=== PATIENT | male | born 1960 | race Caucasian/White ===

== ENCOUNTER 2020-04-09 14:34 | Outpatient (REF) | payer BC, SELFPAY | END 2020-04-09 14:35 | disposition home or self-care (01) | LOC: HO.MDS 14:34 | PROVIDERS: PCP Internal Medicine; Visit Provider Internal Medicine | DX: D50.9 Iron deficiency anemia, unspecified (principal) | CPT/HCPCS: 96365; J2916 ==

== ENCOUNTER 2020-04-19 12:27 | Outpatient (REF) | payer BC, SELFPAY | END 2020-04-19 12:28 | disposition home or self-care (01) | LOC: HO.MDS 12:27 | PROVIDERS: Visit Provider Internal Medicine | DX: D50.9 Iron deficiency anemia, unspecified (principal) | CPT/HCPCS: 96365; J1439 ==

== ENCOUNTER → 2020-07-02 15:20 | Outpatient (BNV) | payer BC, SELFPAY | PROVIDERS: PCP Internal Medicine; Visit Provider Internal Medicine | DX: D50.0 Iron deficiency anemia secondary to blood loss (chronic) (principal) | CPT/HCPCS: 99213; 99214 ==

== ENCOUNTER 2020-07-08 13:22 | Outpatient (REF) | payer BC, SELFPAY | END 2020-07-08 13:23 | disposition home or self-care (01) | LOC: HO.MDS 13:22 | PROVIDERS: Visit Provider Internal Medicine Medical Oncology | DX: D50.9 Iron deficiency anemia, unspecified (principal) | CPT/HCPCS: 96365; J1439 ==

== ENCOUNTER 2020-07-16 | Outpatient (REF) | payer BC, SELFPAY | END 2020-07-16 00:01 | disposition home or self-care (01) | LOC: HO.MDS | PROVIDERS: PCP Internal Medicine; Visit Provider Internal Medicine Medical Oncology | DX: D50.9 Iron deficiency anemia, unspecified (principal) | CPT/HCPCS: 96365; J1439 ==

== ENCOUNTER 2020-10-01 08:06 | Outpatient (REF) | payer BC, SELFPAY ==
--- NOTE | ~2020-10-01 | XR_ITS ---
EXAMINATION: XR KNEE, BILATERAL XR KNEE, RIGHT CLINICAL INFORMATION: Pain in the right knee COMPARISON: None TECHNIQUE: AP standing view of both knees. Lateral and sunrise views of the right knee. FINDINGS: Right knee: No fracture or subluxation. Mild medial compartment joint space narrowing. Enthesophyte formation of the patella. No significant joint effusion. Scattered vascular calcifications are present. Left knee: No fracture or subluxation. Mild medial compartment narrowing. XR/XR knee RT 2V IMPRESSION: Mild medial compartment narrowing of both knees.
--- NOTE | ~2020-10-01 | XR_ITS ---
EXAMINATION: XR KNEE, BILATERAL XR KNEE, RIGHT CLINICAL INFORMATION: Pain in the right knee COMPARISON: None TECHNIQUE: AP standing view of both knees. Lateral and sunrise views of the right knee. FINDINGS: Right knee: No fracture or subluxation. Mild medial compartment joint space narrowing. Enthesophyte formation of the patella. No significant joint effusion. Scattered vascular calcifications are present. Left knee: No fracture or subluxation. Mild medial compartment narrowing. XR/XR knee standing BI IMPRESSION: Mild medial compartment narrowing of both knees.
== END 2020-10-01 08:07 | disposition home or self-care (01) ==
LOC: HO.HOSX 08:06
PROVIDERS: PCP Internal Medicine; Visit Provider Physician Assistant
DX: M25.561 Pain in right knee (principal); M25.562 Pain in left knee; S80.01XA Contusion of right knee, initial encounter; W18.30XA Fall on same level, unspecified, initial encounter; Y93.9 Activity, unspecified; Y92.9 Unspecified place or not applicable; Y99.8 Other external cause status; D50.9 Iron deficiency anemia, unspecified; J44.9 Chronic obstructive pulmonary disease, unspecified; I10 Essential (primary) hypertension; K21.9 Gastro-esophageal reflux disease without esophagitis; Z87.891 Personal history of nicotine dependence; Z91.09 Other allergy status, other than to drugs and biological substances
CPT/HCPCS: 73560; 73565

== ENCOUNTER 2020-10-08 08:28 | Outpatient (REF) | payer BC, SELFPAY | END 2020-10-08 08:29 | disposition home or self-care (01) | LOC: HO.MDS 08:28 | PROVIDERS: PCP Internal Medicine; Visit Provider Internal Medicine Medical Oncology | DX: D50.9 Iron deficiency anemia, unspecified (principal) | CPT/HCPCS: 96365; J1439 ==

== ENCOUNTER 2020-10-15 14:16 | Outpatient (REF) | payer BC, SELFPAY | END 2020-10-15 14:17 | disposition home or self-care (01) | LOC: HO.MDS 14:16 | PROVIDERS: PCP Internal Medicine; Visit Provider Internal Medicine Medical Oncology | DX: D50.9 Iron deficiency anemia, unspecified (principal) | CPT/HCPCS: 96365; J1439 ==

== ENCOUNTER 2020-11-26 09:31 | Outpatient (REF) | payer BC, SELFPAY ==
--- NOTE | ~2020-11-26 | XR_ITS ---
EXAMINATION: XR FOOT, RIGHT CLINICAL INFORMATION: 5th metatarsal fracture COMPARISON: None TECHNIQUE: AP, lateral, and oblique views of the right foot. FINDINGS: The bones and soft tissues are normal. No fracture. Alignment is anatomic. Joint spaces are maintained. Small heel spur. XR/XR foot RT min 3V IMPRESSION: No fracture.
== END 2020-11-26 09:32 | disposition home or self-care (01) ==
LOC: HO.XRAY 09:31
PROVIDERS: PCP Internal Medicine; Visit Provider Physician Assistant
DX: S92.351A Displaced fracture of fifth metatarsal bone, right foot, initial encounter for closed fracture (principal); M79.671 Pain in right foot; S83.104A Unspecified dislocation of right knee, initial encounter; S83.281A Other tear of lateral meniscus, current injury, right knee, initial encounter
CPT/HCPCS: 73630

== ENCOUNTER 2020-12-02 08:39 | Outpatient (REF) | payer BC, SELFPAY ==
[2020-12-02 12:07] LABS: Erythrocyte Sedimentation Rate 3 MM/HR (0-15)
[2020-12-02 12:12] LABS: Uric Acid 6.2 mg/dL (3.4-7.0)
== END 2020-12-02 08:40 | disposition home or self-care (01) ==
LOC: HO.HMGCLDS 08:39
PROVIDERS: PCP Internal Medicine; Visit Provider Nurse Practitioner Family
DX: M79.671 Pain in right foot (principal); M25.561 Pain in right knee
CPT/HCPCS: 36415; 84550; 85652

== ENCOUNTER 2020-12-14 17:41 | Outpatient (REF) | payer BC, SELFPAY ==
--- NOTE | ~2020-12-14 | MR_ITS ---
EXAMINATION: MR KNEE WITHOUT CONTRAST, RIGHT CLINICAL INFORMATION: Right knee pain. COMPARISON: Radiographs of knees from 10/01/2020. TECHNIQUE: MRI of the knee without contrast was performed using routine sequences on a high-field scanner. FINDINGS: MENISCI: Medial Meniscus: Small horizontal tear of approximately 0.5 cm AP dimension at the inner third of the meniscus in region of junction of the posterior horn and meniscal body. Lateral Meniscus: Normal. No tear, discoid meniscus or parameniscal cyst. LIGAMENTS: Cruciate: Anterior and posterior cruciate ligaments are normal. Collateral: At the medial knee, the tibial collateral ligament is intact. At the lateral knee, the iliotibial band, fibular collateral ligament, biceps femoris tendon and popliteus tendon are intact. EXTENSOR MECHANISM: The distal quadriceps tendon is intact. The patellar tendon, patellar retinacula, and Hoffa's fat pad are unremarkable. ARTICULAR CARTILAGE/BONE: Patellofemoral Compartment: Patella is properly positioned within the trochlear groove. Minimal signal heterogeneity of superficial cartilage of the lateral patellar facet. Overall, articular cartilage of the patella and femoral trochlea is well preserved. Medial Compartment: No focal cartilage defects. A fracture line in trabecular bone in the weightbearing region of the femoral condyle measures approximately 1 cm AP dimension. Diffuse bone marrow edema is present within the medial femoral condyle. Lateral Compartment: Normal. JOINT FLUID AND BURSAE: Small joint effusion with trace amount of fluid in the semimembranosus-medial gastrocnemius bursa, and mild fluid distention of the popliteus tendon sheath. MR/MR knee RT wo con IMPRESSION: * There is a horizontal tear at the inner third of the posterior horn of the medial meniscus at its junction with the meniscal body. * Small stress fracture in the weightbearing area of the medial femoral condyle with diffuse bone marrow edema of the femoral condyle. * Small joint effusion.
== END 2020-12-14 17:42 | disposition home or self-care (01) ==
LOC: HO.MRI 17:41
PROVIDERS: Visit Provider Physician Assistant
DX: S83.104A Unspecified dislocation of right knee, initial encounter (principal); S83.281A Other tear of lateral meniscus, current injury, right knee, initial encounter
CPT/HCPCS: 73721

== ENCOUNTER → 2021-01-06 14:38 | Outpatient (BNVA) | payer BC, SELFPAY | PROVIDERS: PCP Internal Medicine; Visit Provider Physician Assistant ==

== ENCOUNTER 2021-01-08 12:49 | Inpatient (IN) | payer BC, SELFPAY ==
[2021-01-08] VITALS (13 sets, daily range): BP systolic 103–134; BP diastolic 50–76; PULSE 89–111; RESP 16–99; TEMP 36.8–38.5; O2SAT 90–100; BMI 34.4
--- NOTE | ~2021-01-08 | XR_ITS ---
EXAMINATION: XR CHEST CLINICAL INFORMATION: Cough COMPARISON: CT chest dated 07.21.2014 TECHNIQUE: Frontal view of the chest was obtained. FINDINGS: Emphysema. No parenchymal consolidation. No pleural effusion. No pneumothorax. Cardiomediastinal silhouette and pulmonary vascularity are within normal limits. No acute osseous abnormalities. XR/XR chest 1V IMPRESSION: No acute findings.
--- NOTE | ~2021-01-08 | CT_ITS ---
EXAMINATION: CT CHEST PE STUDY CLINICAL INFORMATION: Dyspnea. Elevated d-dimer. Rule out pulmonary embolism. COMPARISON: Chest x-ray dated 01/08/2021. CT scan of the chest dated 07/21/2014. TECHNIQUE: Prior to contrast administration, localization images were obtained. After the administration of 71 mL of intravenous Omnipaque 350, multidetector CT volume acquisition of the chest was performed. 3-D postprocessing was performed with multiplanar reconstructions and MIP images obtained at the acquisition workstation under concurrent physician supervision. This CT examination was performed using dose optimization techniques as appropriate, variously including the following: *Automated exposure control *Adjustment of mA and/or kV according to patient size (this includes techniques or standardized protocols for targeted exams where dose is matched to indication/reason for exam; i.e. extremities or head) *Use of iterative reconstruction technique DLP: 461 mGy-cm. FINDINGS: Pulmonary arteries: The bolus timing on this study was acceptable for visualization of the pulmonary arterial tree. There are no intraluminal pulmonary arterial filling defects present to suggest pulmonary embolism in the main pulmonary artery, right and left main pulmonary artery, lobar and segmental branches. Lungs: There is a trace right pleural effusion. No significant left-sided pleural effusion is seen. There is dense masslike consolidation in the posterior segment of the right upper lobe, extending to the pleural and fissural surfaces with slight thickening of the right major fissure, new compared to 2015, suspicious for a pneumonia. Dependent atelectasis is seen in both lower lobes. Central airways are patent. There is underlying centrilobular emphysema. Cardiovascular structures: Aorta and heart: The heart is normal in size. The aorta is normal. There is no pericardial effusion Lymphatic structures: Again seen is abnormal right hilar adenopathy, measuring up to 2.2 cm in short axis. Subcarinal adenopathy measuring up to 1.3 cm in short axis, right lower paratracheal adenopathy measuring up to 1.6 cm and several other smaller mediastinal and left hilar lymph nodes are noted, similar to the previous exam from 2014. No significant axillary adenopathy is noted. Upper abdomen: Limited evaluation of the upper abdominal viscera demonstrates no focal abnormality. Bones: Diffuse moderate vertebral spondylosis seen in the mid and lower thoracic spine. CT/CT angio chest PE protocol IMPRESSION: 1. No evidence of pulmonary embolism. 2. Interval development of extensive masslike consolidation in the right upper lobe with associated thickening of the airways and small right pleural effusion. Finding is most likely related to intercurrent rounded pneumonia. However, close clinical correlation is requested. If clinically, pneumonia is not a consideration, similar appearance may be seen with advanced lung cancer. Follow-up imaging post treatment is recommended for reassessment. 3. Abnormal mediastinal and right greater than left hilar adenopathy is seen, appearing chronic and similar to 07/21/2014. This is of uncertain etiology. Given the long-term persistence of findings, low-grade chronic processes, such as low-grade lymphoma, chronic inflammatory changes, Castleman's disease, chronic granulomatous infection can be considered in the differential. VTE: Negative
--- NOTE | 2021-01-08 12:57 | ECG_ITS ---
Test Reason : SHORTNESS OF BREATH Blood Pressure : / mmHG Vent. Rate : 105 BPM Atrial Rate : 105 BPM P-R Int : 158 ms QRS Dur : 110 ms QT Int : 348 ms P-R-T Axes : 055 014 056 degrees QTc Int : 459 ms Sinus tachycardia Incomplete right bundle branch block Borderline ECG When compared with ECG of 21-JUL-2014 04:08, No significant change was found Referred By: Aishwarya Cristina Electronically Signed By:Amado Naidu
--- NOTE | 2021-01-08 13:06 | ED_ITS ---
HPI - SOB/Dyspnea General Chief Complaint: Dyspnea Stated Complaint: COPD EXACERBATION Time Seen by Provider: 01/08/21 12:57 Source: patient and EMS Mode of arrival: EMS Limitations: no limitations History of Present Illness MD elicited complaint: shortness of breath and cough Pertinent past history: COPD and other (anemia missed his recent Fe infusion) Onset (ago): day(s) (last night) Timing: improved (after neb with EMS sats in the high 80s on arrival) Severity: moderate Exacerbating factors: lying flat and exertion Relieving factors: oxygen, rest and bronchodilators Known history of: COPD Treatment prior to arrival: bronchodilator Related Data Home Medications Medication Instructions Recorded Confirmed ascorbic acid (vitamin C) [Vitamin 500 mg PO DAILY 07/02/20 01/08/21 C] ferrous sulfate [Iron (ferrous 325 mg PO BID 07/02/20 01/08/21 sulfate)] Previous Rx's Medication Instructions Recorded fluticasone 250 mcg-salmeterol 50 1 ea INHALATION BID #180 cap 06/07/20 mcg/dose blistr powdr for inhalation tiotropium bromide 2.5 2 puff PO DAILY #12 ml 14/20 mcg/actuation mist for inhalation omeprazole 20 mg capsule,delayed 20 mg PO DAILY #90 cap 11/08/20 release indomethacin 50 mg capsule 50 mg PO BID PRN 30 Days #60 cap 12/31/20 losartan 50 mg tablet 50 mg PO DAILY 90 Days #90 tab 12/31/20 naproxen 500 mg tablet 500 mg PO BID 30 Days #60 tab 01/06/21 Allergies Allergy/AdvReac Type Severity Reaction Status Date / Time adhesive tape Allergy Unknown RASH Verified 01/08/21 13:00 Review of Systems Review of Systems: Constitutional : No Fever, No Chills ENT/Mouth : No sore throat, No Rhinorrhea, No Swallowing Difficulty Eyes: No Eye Pain, No Swelling, No Redness Cardiovascular : No Chest Pain, positive SOB, No Orthopnea, no Edema, pos palpitations Respiratory : pos Cough, No Sputum, No Wheezing, positive dyspnea Gastrointestinal : No Nausea, No Vomiting, No Diarrhea, No abdominal Pain, No Hematochezia, No Melena Genitourinary : No Dysuria, No Urinary Frequency, No Hematuria Musculoskeletal : No joint pain, No Myalgias Skin : No Skin Lesions, No rash Neuro : pos Weakness, No Numbness, No Dizziness, No Headache Psych : No Anxiety/Panic, No Depression Heme/Lymph: No Bruising, No Lymphadenopathy Endocrine : No Polyuria, No Polydipsia All other systems reviewed and are negative [facility] Past Medical History Attestation statement: The following information was validated with the patient. Medical History COPD (chronic obstructive pulmonary disease) GERD (gastroesophageal reflux disease) HTN (hypertension) Iron deficiency anemia Surgical History H/O umbilical hernia repair Family History Family History Father Liver cancer Diabetes mellitus Mother Emphysema, unspecified CVD (cardiovascular disease) Maternal Grandmother No problems noted. Maternal Grandfather No problems noted. Paternal Grandfather No problems noted. Paternal Grandmother No problems noted. Sister No problems noted. 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 Oriented X3. Mild acute distress. Eyes: Pupils equal, round and reactive to light. ENT: Pharynx normal. Neck: Normal inspection. Neck supple. CVS: Normal heart rate and rhythm. Pulses normal. Respiratory: No respiratory distress. Breath sounds diminished throughout Abdomen: Soft and nontender. Skin: Skin warm and dry. pale skin color. Extremities: trace pitting bilateral lower extremity edema. No calf ttp Neuro: Oriented X 3. No motor deficit. No sensory deficit. 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 Lab Data Result diagrams: 01/08/21 13:13 01/08/21 13:13 Labs: Lab Results 01/08/21 01/08/21 01/08/21 Range/Units 13:13 13:13 13:13 WBC 9.4 (4.8-10.8) X10*3/uL RBC 2.45 L D (4.60-5.80) X10*6/uL Hgb 5.9 L* D (14.0-18.0) g/dl Hct 20.1 L* D (42-52) % MCV 82.0 (80-98) fL MCH 24.1 L (27.0-33.0) pg MCHC 29.4 L (31.0-36.0) g/dl RDW 16.1 H (11.0-16.0) % Plt Count 260 (160-400) X10*3/uL MPV 9.3 L (9.4-12.4) fL Immature Gran % (Auto) 0.4 (0.0-0.4) % Neut % (Auto) 83.3 H (45-73) % Lymph % (Auto) 7.5 L (20-40) % [place] % (Auto) 8.4 (2-11) % Eos % (Auto) 0.2 (0-4) % Baso % (Auto) 0.2 (0-2) % Lymph # (Auto) 0.7 L (1.2-4.9) X10*3/uL [place] # (Auto) 0.8 (0.1-1.2) X10*3/uL Eos # (Auto) 0.0 (0.0-0.4) X10*3/uL Baso # (Auto) 0.0 (0.0-0.2) X10*3/uL Abs Immat Gran (auto) 0.04 H (0.00-0.03) X10*3/uL Absolute Neuts (auto) 7.9 (2.0-8.3) X10*3/uL Absolute Nucleated RBC 0.000 (0.0-0.012) X10*3/uL Nucleated RBC % (auto) 0.0 (0.0-0.2) /100WBC D-Dimer 713 NG/ML Sodium 142 (135-145) mmol/L Potassium 4.6 (3.3-5.1) mmol/L Chloride 109 H (96-108) mmol/L Carbon Dioxide 24 (22-29) mmol/L Anion Gap 14 (12-20) BUN 17 H (9-16) mg/dL Creatinine 0.92 (0.5-1.4) mg/dL Estim Creat Clear Calc 105.9 Estimated GFR > 60 Random Glucose 109 (60-115) mg/dL Lactic Acid (0.5-2.0) mmol/L Calcium 8.0 L (8.4-10.2) mg/dL Magnesium 2.1 (1.6-2.6) mg/dL Total Bilirubin 0.6 (0.0-1.0) mg/dL Direct Bilirubin 0.3 (0.0-0.5) mg/dL AST 22 (5-37) U/L ALT 31 (0-40) U/L Alkaline Phosphatase 87 (39-117) U/L Troponin I High Sens (<3.5-35.0) ng/L B-Natriuretic Peptide (<100) pg/mL Total Protein 5.4 L (6.5-8.0) g/dL Albumin 3.4 L D (3.5-5.0) g/dL COVID-19 (JUDD) (Negative) COVID-19 Clin Com Blood Type Antibody Screen Crossmatch 01/08/21 01/08/21 01/08/21 Range/Units 13:13 13:13 13:40 WBC (4.8-10.8) X10*3/uL RBC (4.60-5.80) X10*6/uL Hgb (14.0-18.0) g/dl Hct (42-52) % MCV (80-98) fL MCH (27.0-33.0) pg MCHC (31.0-36.0) g/dl RDW (11.0-16.0) % Plt Count (160-400) X10*3/uL MPV (9.4-12.4) fL Immature Gran % (Auto) (0.0-0.4) % Neut % (Auto) (45-73) % Lymph % (Auto) (20-40) % [place] % (Auto) (2-11) % Eos % (Auto) (0-4) % Baso % (Auto) (0-2) % Lymph # (Auto) (1.2-4.9) X10*3/uL [place] # (Auto) (0.1-1.2) X10*3/uL Eos # (Auto) (0.0-0.4) X10*3/uL Baso # (Auto) (0.0-0.2) X10*3/uL Abs Immat Gran (auto) (0.00-0.03) X10*3/uL Absolute Neuts (auto) (2.0-8.3) X10*3/uL Absolute Nucleated RBC (0.0-0.012) X10*3/uL Nucleated RBC % (auto) (0.0-0.2) /100WBC D-Dimer NG/ML Sodium (135-145) mmol/L Potassium (3.3-5.1) mmol/L Chloride (96-108) mmol/L Carbon Dioxide (22-29) mmol/L Anion Gap (12-20) BUN (9-16) mg/dL Creatinine (0.5-1.4) mg/dL Estim Creat Clear Calc Estimated GFR Random Glucose (60-115) mg/dL Lactic Acid (0.5-2.0) mmol/L Calcium (8.4-10.2) mg/dL Magnesium (1.6-2.6) mg/dL Total Bilirubin (0.0-1.0) mg/dL Direct Bilirubin (0.0-0.5) mg/dL AST (5-37) U/L ALT (0-40) U/L Alkaline Phosphatase (39-117) U/L Troponin I High Sens 6.9 (<3.5-35.0) ng/L B-Natriuretic Peptide 128 H (<100) pg/mL Total Protein (6.5-8.0) g/dL Albumin (3.5-5.0) g/dL COVID-19 (JUDD) Negative (Negative) COVID-19 Clin Com See Note Blood Type O Positive Antibody Screen NEGATIVE Crossmatch See Detail 01/08/21 Range/Units 13:40 WBC (4.8-10.8) X10*3/uL RBC (4.60-5.80) X10*6/uL Hgb (14.0-18.0) g/dl Hct (42-52) % MCV (80-98) fL MCH (27.0-33.0) pg MCHC (31.0-36.0) g/dl RDW (11.0-16.0) % Plt Count (160-400) X10*3/uL MPV (9.4-12.4) fL Immature Gran % (Auto) (0.0-0.4) % Neut % (Auto) (45-73) % Lymph % (Auto) (20-40) % [place] % (Auto) (2-11) % Eos % (Auto) (0-4) % Baso % (Auto) (0-2) % Lymph # (Auto) (1.2-4.9) X10*3/uL [place] # (Auto) (0.1-1.2) X10*3/uL Eos # (Auto) (0.0-0.4) X10*3/uL Baso # (Auto) (0.0-0.2) X10*3/uL Abs Immat Gran (auto) (0.00-0.03) X10*3/uL Absolute Neuts (auto) (2.0-8.3) X10*3/uL Absolute Nucleated RBC (0.0-0.012) X10*3/uL Nucleated RBC % (auto) (0.0-0.2) /100WBC D-Dimer NG/ML Sodium (135-145) mmol/L Potassium (3.3-5.1) mmol/L Chloride (96-108) mmol/L Carbon Dioxide (22-29) mmol/L Anion Gap (12-20) BUN (9-16) mg/dL Creatinine (0.5-1.4) mg/dL Estim Creat Clear Calc Estimated GFR Random Glucose (60-115) mg/dL Lactic Acid 1.3 (0.5-2.0) mmol/L Calcium (8.4-10.2) mg/dL Magnesium (1.6-2.6) mg/dL Total Bilirubin (0.0-1.0) mg/dL Direct Bilirubin (0.0-0.5) mg/dL AST (5-37) U/L ALT (0-40) U/L Alkaline Phosphatase (39-117) U/L Troponin I High Sens (<3.5-35.0) ng/L B-Natriuretic Peptide (<100) pg/mL Total Protein (6.5-8.0) g/dL Albumin (3.5-5.0) g/dL COVID-19 (JUDD) (Negative) COVID-19 Clin Com Blood Type Antibody Screen Crossmatch ECG Data Attestation: I personally reviewed and interpreted this ECG as follows: ECG interpretation date: 01/08/21 ECG interpretation time: 13:58 Interpretation: Rate: 105 Rhythm: sinus tachycardia [place]: normal Normal P waves. Normal KRISTIAN. incomplete RBBB ST T wave : nonspecific, no MATEO qTC: normal prior studies: no acute ischemia The study has been interpreted contemporaneously by me. . Critical Care Time Critical Care Time Critical Care Time: Yes Total Critical Care Time: 60 Attestation: review or records, transfusion of blood, COPD treatment I attest to this time spent taking care of the patient Discharge Plan Discharge Clinical Impression: COPD (chronic obstructive pulmonary disease) Qualifiers: COPD type: COPD with acute exacerbation Qualified Code(s): J44.1 - Chronic obstructive pulmonary disease with (acute) exacerbation Anemia Qualifiers: Anemia type: iron deficiency Iron deficiency anemia type: chronic blood loss Qualified Code(s): D50.0 - Iron deficiency anemia secondary to blood loss (chronic) Fever Qualifiers: Fever type: unspecified Qualified Code(s): R50.9 - Fever, unspecified Pneumonia Qualifiers: Pneumonia type: due to unspecified organism Laterality: right Lung location: upper lobe of lung Qualified Code(s): J18.9 - Pneumonia, unspecified organism Patient Disposition: Admitted As Inpatient
[2021-01-08] MEDS: Albuterol Sulfate (0.083%) 2.5 MG/3 ML VIAL.NEB INHALE (13:14)
[2021-01-08 13:19] LABS: Basophils Percent Auto 0.2 % (0-2); Eosinophils Percent Auto 0.2 % (0-4); Imm Gran Abs Auto 0.04 X10*3/uL (0.00-0.03); Imm Gran Pct Auto 0.4 % (0.0-0.4); Lymphocytes Absolute Auto 0.7 X10*3/uL (1.2-4.9); Lymphocytes Percent Auto 7.5 % (20-40); MANUAL DIFF FLAG NO; Mean Corpuscular HGB Conc 29.4 g/dl (31.0-36.0); Mean Corpuscular Hemoglobin 24.1 pg (27.0-33.0); Mean Platelet Volume 9.3 fL (9.4-12.4); Monocytes Absolute Auto 0.8 X10*3/uL (0.1-1.2); Monocytes Percent Auto 8.4 % (2-11); Neutrophils Absolute Auto 7.9 X10*3/uL (2.0-8.3); Neutrophils Percent Auto 83.3 % (45-73); Platelet Count 260 X10*3/uL (160-400); Red Blood Count 2.45 X10*6/uL (4.60-5.80); Red Cell Distribution Width 16.1 % (11.0-16.0); White Blood Count 9.4 X10*3/uL (4.8-10.8)
[2021-01-08 13:23] LABS: Hematocrit 20.1 % (42-52); Hemoglobin 5.9 g/dl (14.0-18.0)
[2021-01-08 13:32] LABS: D Dimer 713 NG/ML
[2021-01-08] MEDS: Famotidine/PF 20 MG/2 ML VIAL IVPUSH (13:34)
[2021-01-08] MEDS: Acetaminophen 325 MG TABLET 650 MG PO (13:34)
[2021-01-08 13:36] LABS: COVID-19 Test Negative (Negative)
[2021-01-08 13:49] LABS: B Type Natriuretic Peptide 128 pg/mL (<100); Troponin-I High Sensitivity 6.9 ng/L (<3.5-35.0)
[2021-01-08 14:05] LABS: Alanine Aminotransferase 31 U/L (0-40); Albumin Level 3.4 g/dL (3.5-5.0); Alkaline Phosphatase 87 U/L (39-117); Anion Gap 14 (12-20); Aspartate Amino Transferase 22 U/L (5-37); Bilirubin Direct 0.3 mg/dL (0.0-0.5); Bilirubin Total 0.6 mg/dL (0.0-1.0); Blood Urea Nitrogen 17 mg/dL (9-16); Carbon Dioxide 24 mmol/L (22-29); Chloride 109 mmol/L (96-108); Creatinine Clr Calc Pharmacy 105.9; Estimated Glomerular Filt Rate > 60; Glucose Random 109 mg/dL (60-115); Magnesium 2.1 mg/dL (1.6-2.6); Potassium 4.6 mmol/L (3.3-5.1); Sodium 142 mmol/L (135-145); Total Protein 5.4 g/dL (6.5-8.0)
[2021-01-08] MEDS: cefTRIAXone sodium 1 GM in 0.9 % Sodium Chloride 50 ML IV (14:08)
[2021-01-08 14:10] LABS: Lactic Acid 1.3 mmol/L (0.5-2.0)
[2021-01-08] MEDS: Acetaminophen 325 MG TABLET PO (14:49)
[2021-01-08] MEDS: Doxycycline Hyclate 100 MG in 0.9 % Sodium Chloride 250 ML 166.67 MG IV (15:44)
--- NOTE | 2021-01-08 15:53 | PC.NURSE ---
hospitalist to bedside for eval
--- NOTE | 2021-01-08 16:05 | P.HPHOSP_ITS ---
History of Present Illness Date of Service: 01/08/21 Chief Complaint: Shortness of breath, fever, cough A 60 years old male with PMH of AVM small-bowel, COPD, HTN, GERD among others who presents to the hospital with shortness of breath, cough and weakness for the last day. The patient reported that he was treated recently for gout attack and knee pain with steroids and indomethacin. For the last 3 days he noticed increase shortness of breath upon ambulation with increased episodes of coughing associated with chills and feeling fever. He follows with Dr. Gonzalez as outpatient and received iron transfusion every 3 months to sustain his hemoglobin level between 9-10. With his presentation today he is denying any chest pain, palpitation, nausea or vomiting, abdominal pain, urinary changes or skin abnormality. In the emergency was found to febrile with significant drop of hemoglobin to 5.[address] scan suggestive of pneumonia. Admitted further evaluation and treatment. Review of Systems Review of Systems: Report fever, chills or weakness No chest pain, feeling palpitation Having shortness of breath and bouts of coughing No abdominal pain, nausea or vomiting No urinary symptoms No any rash or wounds PMFSH Medical History COPD (chronic obstructive pulmonary disease) GERD (gastroesophageal reflux disease) HTN (hypertension) Iron deficiency anemia Family History Father Liver cancer Diabetes mellitus Mother Emphysema, unspecified CVD (cardiovascular disease) Maternal Grandmother No problems noted. Maternal Grandfather No problems noted. Paternal Grandfather No problems noted. Paternal Grandmother No problems noted. Sister No problems noted. 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 Meds Allergies Allergy/AdvReac Type Severity Reaction Status Date / Time adhesive tape Allergy Unknown RASH Verified 01/08/21 13:00 Active Medications: Current Medications Generic Name Dose Route Start Last Admin Trade Name Freq PRN Reason Stop Dose Admin Acetaminophen 650 mg 01/08/21 15:58 Acetaminophen 325 Mg Tablet PO Q6H PRN Pain, Mild (Pain Scale 1-3) Al Hydroxide/Mg Hydroxide 30 ml 01/08/21 15:58 Magnesium Hydrox/Alum Hydrox 30 Ml Oral.Susp PO Q4H PRN Heartburn/Nausea Albuterol Sulfate 2.5 mg 01/08/21 15:58 Albuterol Sulfate (0.083%) 2.5 Mg/3 Ml Vial.Neb INHALE Q3H PRN Shortness of Breath/Wheezing Albuterol/Ipratropium 3 ml 01/08/21 20:00 Albuterol/Iprat 2.5/0.5mg 3 Ml Ampul.Neb INHALE RQ6H WHILE AWAKE [facility] Ferrous Sulfate 324 mg 01/08/21 17:00 Ferrous Sulfate 324 Mg Tablet. PO BIDWM [facility] Doxycycline Hyclate 100 mg/ 250 mls @ 166.67 mls/hr 01/08/21 14:38 01/08/21 15:44 Sodium Chloride IV 01/08/21 16:07 166.67 mls/hr ONCE ONE Administration Ceftriaxone Sodium 1 gm/ 50 mls @ 100 mls/hr 01/09/21 13:00 Sodium Chloride IV Q24H [facility] Azithromycin 500 mg/ Sodium 250 mls @ 125 mls/hr 01/08/21 16:00 Chloride IV Q24H [facility] Losartan Potassium 25 mg 01/09/21 09:00 Losartan Potassium 25 Mg Tablet PO DAILY [facility] Protocol Omeprazole 20 mg 01/08/21 21:00 Omeprazole 20 Mg Capsule. PO BID [facility] Ondansetron HCl 4 mg 01/08/21 15:58 Ondansetron Hcl 4 Mg/2 Ml Vial IVPUSH Q8H PRN Nausea and Vomiting Pharmacy Consult 1 each 01/08/21 15:12 Consult Rx Perform Med Rec MISCELLANE ONCE PRN Consult order Sodium Chloride 3 ml 01/08/21 16:00 0.9 % Sodium Chloride Flush 3 Ml Syringe IVFLUSH QSHIFT [facility] Home Medications Medication Instructions Recorded Confirmed Last Taken Type ascorbic acid (vitamin C) [Vitamin 500 mg PO DAILY 07/02/20 01/08/21 Unknown History C] ferrous sulfate [Iron (ferrous 325 mg PO BID 07/02/20 01/08/21 Unknown History sulfate)] Physical Exam Vital Signs and Narrative: Vital Signs: Last Vital Signs Temp 100.7 F H 01/08/21 15:38 Pulse 96 01/08/21 15:38 Resp 20 01/08/21 15:38 BP 113/55 L 01/08/21 14:55 Pulse Ox 98 01/08/21 15:38 Body Mass Index 34.4 Const: Other: Constitutional : Alert, oriented, in mild respiratory distress Neck : Normal inspection, Supple Cardiovascular : RRR, S1 S2, no lower extremity edema Respiratory : Decrease bilateral air entry mainly at the right lower quadrant with basal crackles and expiratory wheezes bilaterally Gastrointestinal: soft, lax, Normal bowel sounds, Non tender Skin : Warm/Dry, No rash Neurological : Alert & oriented x3, No focal deficit Results Labs CBC and Chem 7: 01/08/21 13:13 01/08/21 13:13 Labs: Laboratory Results - last 24 hr 01/08/21 01/08/21 01/08/21 13:13 13:13 13:13 MCV 82.0 MCH 24.1 L MCHC 29.4 L RDW 16.1 H Plt Count 260 MPV 9.3 L Immature Gran % (Auto) 0.4 Neut % (Auto) 83.3 H Lymph % (Auto) 7.5 L [place] % (Auto) 8.4 Eos % (Auto) 0.2 Baso % (Auto) 0.2 Lymph # (Auto) 0.7 L [place] # (Auto) 0.8 Eos # (Auto) 0.0 Baso # (Auto) 0.0 Abs Immat Gran (auto) 0.04 H Absolute Neuts (auto) 7.9 Absolute Nucleated RBC 0.000 Nucleated RBC % (auto) 0.0 D-Dimer 713 Anion Gap 14 Estim Creat Clear Calc 105.9 Estimated GFR > 60 Random Glucose 109 Lactic Acid Calcium 8.0 L Magnesium 2.1 Total Bilirubin 0.6 Direct Bilirubin 0.3 AST 22 ALT 31 Alkaline Phosphatase 87 Troponin I High Sens B-Natriuretic Peptide Total Protein 5.4 L Albumin 3.4 L D COVID-19 (JUDD) COVID-19 Clin Com Blood Type Antibody Screen Crossmatch 01/08/21 01/08/21 01/08/21 13:13 13:13 13:40 MCV MCH MCHC RDW Plt Count MPV Immature Gran % (Auto) Neut % (Auto) Lymph % (Auto) [place] % (Auto) Eos % (Auto) Baso % (Auto) Lymph # (Auto) [place] # (Auto) Eos # (Auto) Baso # (Auto) Abs Immat Gran (auto) Absolute Neuts (auto) Absolute Nucleated RBC Nucleated RBC % (auto) D-Dimer Anion Gap Estim Creat Clear Calc Estimated GFR Random Glucose Lactic Acid Calcium Magnesium Total Bilirubin Direct Bilirubin AST ALT Alkaline Phosphatase Troponin I High Sens 6.9 B-Natriuretic Peptide 128 H Total Protein Albumin COVID-19 (JUDD) Negative COVID-19 Clin Com See Note Blood Type O Positive Antibody Screen NEGATIVE Crossmatch See Detail 01/08/21 13:40 MCV MCH MCHC RDW Plt Count MPV Immature Gran % (Auto) Neut % (Auto) Lymph % (Auto) [place] % (Auto) Eos % (Auto) Baso % (Auto) Lymph # (Auto) [place] # (Auto) Eos # (Auto) Baso # (Auto) Abs Immat Gran (auto) Absolute Neuts (auto) Absolute Nucleated RBC Nucleated RBC % (auto) D-Dimer Anion Gap Estim Creat Clear Calc Estimated GFR Random Glucose Lactic Acid 1.3 Calcium Magnesium Total Bilirubin Direct Bilirubin AST ALT Alkaline Phosphatase Troponin I High Sens B-Natriuretic Peptide Total Protein Albumin COVID-19 (JUDD) COVID-19 Clin Com Blood Type Antibody Screen Crossmatch Imaging Radiologist's Impressions: Impressions Chest X-Ray 01/08/21 12:58 IMPRESSION: No acute findings. Assessment and Plan (1) Sepsis: Status: Acute (2) Fever: Qualifiers: Fever type: unspecified Qualified Code(s): R50.9 - Fever, unspecified Status: Acute (3) Pneumonia: Qualifiers: Laterality: right Lung location: upper lobe of lung Pneumonia type: due to unspecified organism Qualified Code(s): J18.9 - Pneumonia, unspecified organism Status: Acute (4) COPD (chronic obstructive pulmonary disease) with acute bronchitis: Status: Acute (5) Symptomatic anemia: Status: Acute (6) Acute on chronic blood loss anemia: Status: Acute A 60 years old male with PMH of AVM small-bowel, COPD, HTN, GERD among others who presents to the hospital with shortness of breath, cough and weakness for the 3 days. Sepsis Secondary to pneumonia CTA showing consolidation Sepsis focused exam done Lactic acid negative Blood culture sent Start azithromycin and ceftriaxone Wean oxygen down as tolerated Symptomatic anemia Secondary to acute on chronic blood-loss anemia Hemoglobin 5.9 baseline between 9-10 From chronic AVM blood loss Continue iron supplement Transfused 2 units blood To get GI evaluation COPD exacerbation Received steroids, will hold on more with the worsening bleeding Continue DuoNeb nebulizer Cough medicine DVT PPX SCDs Quality Stroke Does the patient have a stroke diagnosis?: No VTE Prior VTE?: No VTE Risk Level:: Medical - moderate - high VTE Device Contraindication: N/A - Device Ordered VTE Drug Contraindication: Treatment Not Indicated
[2021-01-08] MEDS: iohexoL 350 MG/ML 100 ML INFUS..BTL IV (16:14)
--- NOTE | 2021-01-08 17:06 | PC.NURSE ---
Pt's second unit of blood hung and witnessed by Melissa BAIN. Pt denies SOB, itching, back pain at this this time. VS as charted, LS clear/dim at bases bilaterally. NAD. Denies pain at this time.
[2021-01-08] MEDS: Omeprazole 20 MG CAPSULE.DR PO (18:45)
[2021-01-08] MEDS: Pantoprazole Sodium 40 MG/10 ML VIAL IVPUSH (18:45)
[2021-01-08] MEDS: Azithromycin 500 MG in 0.9 % Sodium Chloride 250 ML 125 MG IV (18:45)
[2021-01-08] MEDS: Ferrous Sulfate 324 MG TABLET.DR PO (18:45)
[2021-01-08] MEDS: 0.9 % Sodium Chloride Flush 3 ML SYRINGE IVFLUSH (18:54)
[2021-01-08] MEDS: Albuterol/Iprat 2.5/0.5MG 3 ML AMPUL.NEB INHALE (20:11)
[2021-01-09] VITALS (14 sets, daily range): BP systolic 103–134; BP diastolic 56–71; PULSE 82–110; RESP 16–20; TEMP 36.6–38.8; O2SAT 92–97
[2021-01-09] MEDS: Acetaminophen 325 MG TABLET 650 MG PO ×2 (03:57→13:47)
[2021-01-09 05:21] LABS: Hematocrit 22.2 % (42-52); Mean Corpuscular HGB Conc 30.6 g/dl (31.0-36.0); Mean Corpuscular Hemoglobin 25.5 pg (27.0-33.0); Mean Corpuscular Volume 83.1 fL (80-98); Mean Platelet Volume 10.2 fL (9.4-12.4); NRBC Pct Auto 0.2 /100WBC (0.0-0.2); Platelet Count 258 X10*3/uL (160-400); Red Blood Count 2.67 X10*6/uL (4.60-5.80); Red Cell Distribution Width 16.7 % (11.0-16.0); White Blood Count 8.4 X10*3/uL (4.8-10.8)
[2021-01-09 05:41] LABS: Hemoglobin 6.8 g/dl (14.0-18.0)
--- NOTE | 2021-01-09 05:41 | PM.EVENT ---
Event Note Date of Service: 01/09/21 Event Note: Hgb <7, no actiove or overt bleed will transfuse 1 unit
[2021-01-09 05:52] LABS: Iron 8 mcg/dL (45-160); Percent Iron Saturation 3 % (15-50); Total Iron Binding Capacity 255 mcg/dL (228-428); Unsaturated Iron Binding 247 ug/dL
[2021-01-09 05:56] LABS: Anion Gap 13 (12-20); Blood Urea Nitrogen 15 mg/dL (9-16); Calcium 7.4 mg/dL (8.4-10.2); Carbon Dioxide 21 mmol/L (22-29); Chloride 111 mmol/L (96-108); Creatinine Clr Calc Pharmacy 117.4; Estimated Glomerular Filt Rate > 60; Glucose Random 107 mg/dL (60-115); Sodium 141 mmol/L (135-145)
[2021-01-09] MEDS: Omeprazole 20 MG CAPSULE.DR PO ×2 (06:01→16:31)
[2021-01-09] MEDS: Albuterol/Iprat 2.5/0.5MG 3 ML AMPUL.NEB INHALE ×3 (07:41→19:23)
[2021-01-09] MEDS: Losartan Potassium 25 MG TABLET PO (08:28)
[2021-01-09] MEDS: 0.9 % Sodium Chloride Flush 3 ML SYRINGE IVFLUSH ×2 (08:28→16:18)
[2021-01-09] MEDS: Ferrous Sulfate 324 MG TABLET.DR PO ×2 (08:28→16:31)
--- NOTE | 2021-01-09 10:30 | PC.NURSE ---
pt has gotten thrid unit of blood with no transfusion reaction symptoms. He is awake, oriented and resting quietly in recliner. Pt states he did not sleep well last night.
--- NOTE | 2021-01-09 13:09 | P.PNIM_ITS ---
Subjective Subjective Date of Service: 01/09/21 Interval History: The patient was seen and evaluated this morning Laying in bed, feels comfortable overall Hemoglobin remains low at 6.8 today, to transfuse more Blood No bloody bowel motions Denies any fever, chills or shortness of breath No reported other overnight events. Systemic review: No fever but still reporting chills and mild weakness No chest pain, palpitation No shortness of breath or coughing No abdominal pain, nausea or vomiting No urinary symptoms No any rash or wounds Physical Exam Vital Signs: Vital Signs: Last Vital Signs Temp 99.4 F 01/09/21 11:05 Pulse 85 01/09/21 11:05 Resp 18 01/09/21 11:05 BP 114/65 01/09/21 11:05 Pulse Ox 94 01/09/21 11:05 Body Mass Index 34.4 Const: Other: Constitutional : Alert, oriented, in mild respiratory distress Neck : Normal inspection, Supple Cardiovascular : RRR, S1 S2, no lower extremity edema Respiratory : Decrease bilateral air entry mainly at the right lower quadrant with basal crackles and expiratory wheezes bilaterally Gastrointestinal: soft, lax, Normal bowel sounds, Non tender Skin : Warm/Dry, No rash Neurological : Alert & oriented x3, No focal deficit Objective Data Current Medications Generic Name Dose Route Start Last Admin Trade Name Freq PRN Reason Stop Dose Admin Acetaminophen 650 mg 01/08/21 15:58 01/09/21 03:57 Acetaminophen 325 Mg Tablet PO 650 mg Q6H PRN Administration Pain, Mild (Pain Scale 1-3) Al Hydroxide/Mg Hydroxide 30 ml 01/08/21 15:58 Magnesium Hydrox/Alum Hydrox 30 Ml Oral.Susp PO Q4H PRN Heartburn/Nausea Albuterol Sulfate 2.5 mg 01/08/21 15:58 Albuterol Sulfate (0.083%) 2.5 Mg/3 Ml Vial.Neb INHALE Q3H PRN Shortness of Breath/Wheezing Albuterol/Ipratropium 3 ml 01/08/21 20:00 01/09/21 07:41 Albuterol/Iprat 2.5/0.5mg 3 Ml Ampul.Neb INHALE 3 ml RQ6H WHILE AWAKE ELKIN Administration Ferrous Sulfate 324 mg 01/08/21 17:00 01/09/21 08:28 Ferrous Sulfate 324 Mg Tablet. PO 324 mg BIDWM ELKIN Administration Ceftriaxone Sodium 1 gm/ 50 mls @ 100 mls/hr 01/09/21 14:00 Sodium Chloride IV Q24H ELKIN Azithromycin 500 mg/ Sodium 250 mls @ 125 mls/hr 01/08/21 18:00 01/08/21 21:12 Chloride IV Infused Q24H ELKIN Infusion Losartan Potassium 25 mg 01/09/21 09:00 01/09/21 08:28 Losartan Potassium 25 Mg Tablet PO 25 mg DAILY ELKIN Administration Protocol Omeprazole 20 mg 01/08/21 16:30 01/09/21 06:01 Omeprazole 20 Mg Capsule. PO 20 mg BID@0630,1630 [facility] Administration Ondansetron HCl 4 mg 01/08/21 15:58 Ondansetron Hcl 4 Mg/2 Ml Vial IVPUSH Q8H PRN Nausea and Vomiting Pharmacy Consult 1 each 01/08/21 15:12 Consult Rx Perform Med Rec MISCELLANE ONCE PRN Consult order Sodium Chloride 3 ml 01/08/21 16:00 01/09/21 08:28 0.9 % Sodium Chloride Flush 3 Ml Syringe IVFLUSH 3 ml QSHIFT [facility] Administration Labs CBC & Chem 7: 01/09/21 03:56 01/09/21 03:56 Labs: Laboratory Results - last 24 hr 01/08/21 01/08/21 01/08/21 13:13 13:13 13:13 WBC 9.4 RBC 2.45 L D Hgb 5.9 L* D Hct 20.1 L* D MCV 82.0 MCH 24.1 L MCHC 29.4 L RDW 16.1 H Plt Count 260 MPV 9.3 L Immature Gran % (Auto) 0.4 Neut % (Auto) 83.3 H Lymph % (Auto) 7.5 L Eagle % (Auto) 8.4 Eos % (Auto) 0.2 Baso % (Auto) 0.2 Lymph # (Auto) 0.7 L Eagle # (Auto) 0.8 Eos # (Auto) 0.0 Baso # (Auto) 0.0 Abs Immat Gran (auto) 0.04 H Absolute Neuts (auto) 7.9 Absolute Nucleated RBC 0.000 Nucleated RBC % (auto) 0.0 D-Dimer 713 Sodium 142 Potassium 4.6 Chloride 109 H Carbon Dioxide 24 Anion Gap 14 BUN 17 H Creatinine 0.92 Estim Creat Clear Calc 105.9 Estimated GFR > 60 Random Glucose 109 Lactic Acid Calcium 8.0 L Magnesium 2.1 Iron TIBC % Saturation Unsat Iron Binding Total Bilirubin 0.6 Direct Bilirubin 0.3 AST 22 ALT 31 Alkaline Phosphatase 87 Troponin I High Sens B-Natriuretic Peptide Total Protein 5.4 L Albumin 3.4 L D COVID-19 (JUDD) COVID-19 Clin Com Blood Type Antibody Screen Crossmatch 01/08/21 01/08/21 01/08/21 13:13 13:13 13:40 WBC RBC Hgb Hct MCV MCH MCHC RDW Plt Count MPV Immature Gran % (Auto) Neut % (Auto) Lymph % (Auto) Eagle % (Auto) Eos % (Auto) Baso % (Auto) Lymph # (Auto) Eagle # (Auto) Eos # (Auto) Baso # (Auto) Abs Immat Gran (auto) Absolute Neuts (auto) Absolute Nucleated RBC Nucleated RBC % (auto) D-Dimer Sodium Potassium Chloride Carbon Dioxide Anion Gap BUN Creatinine Estim Creat Clear Calc Estimated GFR Random Glucose Lactic Acid Calcium Magnesium Iron TIBC % Saturation Unsat Iron Binding Total Bilirubin Direct Bilirubin AST ALT Alkaline Phosphatase Troponin I High Sens 6.9 B-Natriuretic Peptide 128 H Total Protein Albumin COVID-19 (JUDD) Negative COVID-[facility] Medical Com See Note Blood Type O Positive Antibody Screen NEGATIVE Crossmatch See Detail 01/08/21 01/09/21 01/09/21 13:40 03:56 03:56 WBC 8.4 RBC 2.67 L Hgb 6.8 L* Hct 22.2 L MCV 83.1 MCH 25.5 L MCHC 30.6 L RDW 16.7 H Plt Count 258 MPV 10.2 Immature Gran % (Auto) Neut % (Auto) Lymph % (Auto) Eagle % (Auto) Eos % (Auto) Baso % (Auto) Lymph # (Auto) Eagle # (Auto) Eos # (Auto) Baso # (Auto) Abs Immat Gran (auto) Absolute Neuts (auto) Absolute Nucleated RBC 0.020 H Nucleated RBC % (auto) 0.2 D-Dimer Sodium 141 Potassium 4.0 Chloride 111 H Carbon Dioxide 21 L Anion Gap 13 BUN 15 Creatinine 0.83 Estim Creat Clear Calc 117.4 Estimated GFR > 60 Random Glucose 107 Lactic Acid 1.3 Calcium 7.4 L D Magnesium Iron TIBC % Saturation Unsat Iron Binding Total Bilirubin Direct Bilirubin AST ALT Alkaline Phosphatase Troponin I High Sens B-Natriuretic Peptide Total Protein Albumin COVID-19 (JUDD) COVID-19 [facility] Com Blood Type Antibody Screen Crossmatch 01/09/21 03:56 WBC RBC Hgb Hct MCV MCH MCHC RDW Plt Count MPV Immature Gran % (Auto) Neut % (Auto) Lymph % (Auto) Eagle % (Auto) Eos % (Auto) Baso % (Auto) Lymph # (Auto) Eagle # (Auto) Eos # (Auto) Baso # (Auto) Abs Immat Gran (auto) Absolute Neuts (auto) Absolute Nucleated RBC Nucleated RBC % (auto) D-Dimer Sodium Potassium Chloride Carbon Dioxide Anion Gap BUN Creatinine Estim Creat Clear Calc Estimated GFR Random Glucose Lactic Acid Calcium Magnesium Iron 8 L TIBC 255 % Saturation 3 L Unsat Iron Binding 247 Total Bilirubin Direct Bilirubin AST ALT Alkaline Phosphatase Troponin I High Sens B-Natriuretic Peptide Total Protein Albumin COVID-19 (JUDD) COVID-19 Clin Com Blood Type Antibody Screen Crossmatch Quality Stroke Does the patient have a stroke diagnosis?: No VTE Prior VTE?: No VTE Risk Level:: Medical - moderate - high VTE Device Contraindication: N/A - Device Ordered VTE Drug Contraindication: Treatment Not Indicated Assessment and Plan (1) Sepsis: Status: Acute (2) Fever: Status: Acute (3) Pneumonia: Status: Acute (4) COPD (chronic obstructive pulmonary disease) with acute bronchitis: Status: Acute (5) Symptomatic anemia: Status: Acute (6) Acute on chronic blood loss anemia: Status: Acute Assessment and Plan: A 60 years old male with PMH of AVM small-bowel, COPD, HTN, GERD among others who presents to the hospital with shortness of breath, cough and weakness for the 3 days. Sepsis Secondary to pneumonia Feels little better today CTA showing consolidation Blood culture pending Continue azithromycin and ceftriaxone Wean oxygen down as tolerated Symptomatic anemia Secondary to acute on chronic blood-loss anemia Hemoglobin this morning 6.8 baseline between 9-10 From chronic AVM blood loss Continue iron supplement Transfused 2 units blood, to received 2 more units Pending GI evaluation COPD exacerbation Received steroids, will hold on more with the worsening bleeding Continue DuoNeb nebulizer Cough medicine DVT PPX SCDs
--- NOTE | 2021-01-09 13:29 | P.EN_ITS ---
Event Note Date of Service: 01/09/21 Event Note: GI Consult-Full note dictated Imp: 60 yo male with chronic Iron deficiency anemia in relation to multiple and diffuse small bowel AVM's seen during workup in 2015 with EGD/Colonoscopy, and a small bowel video capsule study. The colonoscopy and EGD were otherwise ne gative. Things have been stable on oral Iron, PPI, and periodic IV Iron infusions with Dr. Gonzalez, as well as with avoidance of all aspirin and NSAIDs. He was admitted now with symptomatic anemia and low Iron studies. He had recently been on a short course of prednisone and Indocin for gout/arthritis. He has chronically dark stools and he has not noticed any change in the BM's. He denies any GI sx whatsoever. His BUN is normal. He also appears to have a significant RUL pneumonia/mass on his CT and is having more SOB than usual. Diff dx: Worsening anemia due to increased GI blood loss from his AVM's while on the recent NSAIDs and steroids and/or worsened anemia due to pneumonia and systemic illness. I don't think he is having significant active GI bleeding based on the clinical history. Rec: Supportive care, follow Hgb after transfusions, check stool Hemoccults, continue oral Iron and PPI, avoid all aspirin and NSAIDs, and ? consult Dr. Gonzalez for an IV iron infusion while he is here as he states that he is due for that. I will hold off on any endoscopic evaluation given his known history of the AVM's, no signs of active UGI bleeding, and what appears to be a significant pneumonia superimposed on his COPD. If he shows any signs of active bleeding we can always reassess for an inpatient endoscopy. However, if he remains stable from a GI standpoint I can make plans to see him as an outpatient for follow up if need be. D/W him in detail and he is comfortable with that plan. Thanks
[2021-01-09] MEDS: cefTRIAXone sodium 1 GM in 0.9 % Sodium Chloride 50 ML IV (13:44)
--- NOTE | 2021-01-09 14:25 | PC.NURSE ---
in taking VS for blood administration pt found to have temp 101.9 orally. Contacted MD and returned blood to bank, will readdress administration when pt afebrile
--- NOTE | 2021-01-09 14:48 | PC.NURSE ---
pt is sitting up in recliner. He has gotten tylenol for fever and blood has been held and sent back to blood bank. MD aware of pt fever. Lung sounds are clear in upper lobes for pt with fine crackles in bases. This is an change from earlier where lung sounds were diminished in bases with no crackles.
[2021-01-09 15:20] LABS: Hematocrit 24.9 % (42-52); Hemoglobin 7.7 g/dl (14.0-18.0); Mean Corpuscular HGB Conc 30.9 g/dl (31.0-36.0); Mean Corpuscular Hemoglobin 25.8 pg (27.0-33.0); Mean Corpuscular Volume 83.6 fL (80-98); Mean Platelet Volume 9.9 fL (9.4-12.4); Platelet Count 270 X10*3/uL (160-400); Red Blood Count 2.98 X10*6/uL (4.60-5.80); Red Cell Distribution Width 16.6 % (11.0-16.0); White Blood Count 8.3 X10*3/uL (4.8-10.8)
--- NOTE | 2021-01-09 16:07 | CONS_ITS ---
DATE OF SERVICE: 01/09/2021 REASON FOR CONSULTATION: Anemia with iron deficiency and history of small intestine angiodysplasia. HISTORY OF PRESENT ILLNESS: The patient is a 60-year-old male, well known to me from previous evaluations for iron deficiency anemia. In 2014, he underwent an upper endoscopy and colonoscopy. The upper endoscopy revealed a moderate-sized hiatal hernia, small area of Mullen's esophagus, and nonbleeding duodenal angiodysplasias. Biopsies from the Mullen's esophagus were negative for dysplasia. He did have negative laboratories for celiac disease and duodenal biopsies were not done at that time due to the presence of the angiodysplasias. He also had a colonoscopy at that time, which was unremarkable. A followup small bowel video capsule study in 2014 revealed multiple AVMs extending from the duodenum to the terminal ileum, although without active bleeding. He never underwent any treatment otherwise for the angiodysplasias and since 2014 and 2015, he has been maintained on periodic iron infusions with Dr. Gonzalez and oral iron as well. His hemoglobin has been basically stable and he has not had any difficulties. Over the last couple of weeks, he describes having been on short course of prednisone and indomethacin for gout and arthritis. He describes that his stools are chronically somewhat loose and dark, and there has not been any change in that pattern. He has not noticed any hematochezia. He has not noticed any upper GI complaints such as heartburn, dysphagia, anorexia, early satiety, nausea, nor vomiting. He denies any abdominal pain, jaundice, nor weight loss. Aside from the recent courses of prednisone and indomethacin, he has not been on any other NSAIDs nor other medications such as aspirin. Prior to the hospitalization, he began having increasing shortness of breath, weakness, and fatigue. He came to the ER and was found to have significant anemia and a right upper lobe pneumonia. He was admitted for further evaluation. Since being here in the hospital, he has been feeling better, but has received 3 units of blood thus far. He does not show any signs of active bleeding. He has been tolerating his diet comfortably and he denies any abdominal pain. MEDICATIONS: At home included albuterol, iron and vitamin C, indomethacin, and prednisone as above, losartan, omeprazole. His medications here in the hospital include acetaminophen, albuterol, azithromycin, ceftriaxone, omeprazole 20 mg p.o. b.i.d., iron, losartan, and Zofran p.r.n. PAST MEDICAL HISTORY: Anemia with workup as described above. Multiple small bowel angiodysplasias seen on the upper endoscopy and small bowel video capsule study. Negative colonoscopy in 2015. COPD. Mullen's esophagus as above found in 2015. Surgery for broken left humerus and umbilical hernia. He denies any history of [place], diabetes, stroke, nor kidney disease. FAMILY HISTORY: Noncontributory without any history of colon cancer. SOCIAL HISTORY: He is a former smoker. He does not use any significant alcohol. 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 REVIEW OF SYSTEMS: CONSTITUTIONAL: He has been feeling weak and short of breath. SKIN: No rash, no pruritus. CARDIAC: No chest pain. PULMONARY: He has had some coughing, but no hemoptysis. GI: As above. URINARY: No dysuria or any hematuria. PHYSICAL EXAMINATION: GENERAL: The patient is a pleasant, alert, comfortable-appearing male. SKIN: Warm and dry. Anicteric sclerae. NECK: Supple. CARDIAC: Normal S1, S2. ABDOMEN: Soft, nondistended, nontender without mass. EXTREMITIES: Without edema. LABORATORIES: Admission hemoglobin was 5.9, which came up to 6.8 this morning after transfusions. Platelets 258,000. White blood cell count 8.4. Normal electrolytes. BUN 15, creatinine 0.8 this morning; BUN was 17 yesterday. Iron of 8, iron saturation 3%. LFTs were normal including a total bilirubin of 0.6, albumin 3.4. CAT scan showed a significant right upper lobe process suspicious for at least pneumonia, although the radiologist mentions that he could not rule out a neoplasm and recommends close followup as an outpatient to see if things improve. IMPRESSION: Given the patient's clinical history, I suspect his worsening anemia is probably multifactorial both in relation to the recent use of steroids and NSAIDs with probable increased bleeding from his known angiodysplasias of the small bowel. Given the systemic illness of significant pneumonia, he may have some contributing factor from that as well. Based on his history including a normal BUN and no change in his bowel movements, I doubt he has any significant active upper GI bleeding at this time. Given the negative colonoscopy, I do not think he has any chronic GI blood loss from that standpoint as well. At this point, I would check stool hemoccults, follow his hemoglobin after transfusions, continue his oral iron and PPI, continue to avoid all aspirin and NSAIDs, and continue supportive care in general. Of note, he does tell me that he is due for another iron infusion with Dr. Gonzalez and perhaps that can be done while he is an inpatient. At this point given the significant finding of pneumonia and underlying COPD and no sign of any active bleeding, I would hold off on any upper endoscopy at this time given that he otherwise appears stable from a GI standpoint. Certainly, if he shows signs of any active bleeding while here inpatient endoscopy if need be. However at this point, if he remain stable from a GI standpoint and his hemoglobin remain stable after the transfusions, I will make plan to see him as an outpatient for followup including that of an endoscopy for surveillance in regard to the Mullen's esophagus. Depending upon the clinical course, he may need further evaluation with a repeat small bowel video capsule study and consideration of small bowel enteroscopy as well. This has all been discussed with the patient in detail and he is comfortable with that plan. Thank you for the consultation. MD RAVINDER Stafford/SUKHJINDER / [phone]
[2021-01-09] MEDS: Azithromycin 500 MG in 0.9 % Sodium Chloride 250 ML 125 MG IV (18:15)
[2021-01-09] MEDS: Lidocaine 4 % Patch ADH..PATCH 0.5 PATCH TRANSDERMA (21:29)
[2021-01-09] MEDS: traZODone HCL 25 MG HALFTAB PO (21:29)
[2021-01-10] VITALS (14 sets, daily range): BP systolic 107–133; BP diastolic 58–71; PULSE 79–127; RESP 17–20; TEMP 37.2–37.6; O2SAT 90–94
[2021-01-10] MEDS: Omeprazole 20 MG CAPSULE.DR PO ×2 (05:47→18:18)
[2021-01-10 06:44] LABS: MANUAL DIFF FLAG NO
[2021-01-10 06:55] LABS: Basophils Absolute Auto 0.1 X10*3/uL (0.0-0.2); Basophils Percent Auto 0.6 % (0-2); Eosinophils Absolute Auto 0.1 X10*3/uL (0.0-0.4); Eosinophils Percent Auto 0.7 % (0-4); Hematocrit 25.9 % (42-52); Imm Gran Abs Auto 0.09 X10*3/uL (0.00-0.03); Imm Gran Pct Auto 1.1 % (0.0-0.4); Lymphocytes Absolute Auto 1.2 X10*3/uL (1.2-4.9); Lymphocytes Percent Auto 14.1 % (20-40); Mean Corpuscular HGB Conc 30.9 g/dl (31.0-36.0); Mean Corpuscular Hemoglobin 25.9 pg (27.0-33.0); Mean Corpuscular Volume 83.8 fL (80-98); Mean Platelet Volume 9.9 fL (9.4-12.4); Monocytes Absolute Auto 0.8 X10*3/uL (0.1-1.2); Monocytes Percent Auto 9.8 % (2-11); Neutrophils Absolute Auto 6.2 X10*3/uL (2.0-8.3); Neutrophils Percent Auto 73.7 % (45-73); Platelet Count 282 X10*3/uL (160-400); Red Blood Count 3.09 X10*6/uL (4.60-5.80); Red Cell Distribution Width 17.1 % (11.0-16.0); White Blood Count 8.4 X10*3/uL (4.8-10.8)
[2021-01-10 06:58] LABS: INTERNATIONAL NORM RATIO 1.4 (0.9-1.1); Prothrombin Time 15.9 SEC (9.9-13.0)
[2021-01-10] MEDS: Albuterol/Iprat 2.5/0.5MG 3 ML AMPUL.NEB INHALE ×2 (07:17→19:58)
[2021-01-10 07:30] LABS: Anion Gap 14 (12-20); Blood Urea Nitrogen 13 mg/dL (9-16); Calcium 7.6 mg/dL (8.4-10.2); Carbon Dioxide 22 mmol/L (22-29); Chloride 108 mmol/L (96-108); Creatinine Clr Calc Pharmacy 118.8; Estimated Glomerular Filt Rate > 60; Glucose Fasting 106 mg/dL (60-99); Potassium 3.8 mmol/L (3.3-5.1); Sodium 140 mmol/L (135-145)
--- NOTE | 2021-01-10 08:04 | ECG_ITS ---
Test Reason : TACHYCARDIA Blood Pressure : / mmHG Vent. Rate : 181 BPM Atrial Rate : 182 BPM P-R Int : 000 ms QRS Dur : 162 ms QT Int : 264 ms P-R-T Axes : 000 -27 029 degrees QTc Int : 458 ms Atrial fibrillation with rapid ventricular response ST depression in Anterolateral leads s/o ischemia Abnormal ECG When compared with ECG of 08-JAN-2021 13:50, Atrial fibrillation has replaced Sinus rhythm Vent. rate has increased BY [address] depression s/o ischemia is nor present Referred By: Tomas Winters Electronically Signed By:ARIANA MONTERROSO MD
[2021-01-10] MEDS: Ferrous Sulfate 324 MG TABLET.DR PO ×2 (08:22→18:18)
[2021-01-10] MEDS: 0.9 % Sodium Chloride Flush 3 ML SYRINGE IVFLUSH (08:22)
[2021-01-10] MEDS: Losartan Potassium 25 MG TABLET PO (08:22)
[2021-01-10] MEDS: dilTIAZem HCL 50 MG/10 ML VIAL 10 MG IVPUSH ×2 (08:39→08:59)
[2021-01-10 08:59] LABS: Magnesium 2.2 mg/dL (1.6-2.6)
[2021-01-10] MEDS: Benzonatate 100 MG CAPSULE PO ×3 (08:59→20:34)
[2021-01-10] MEDS: Magnesium Sulfate/H2O 2 GM/50 ML PIGGYBACK IV (08:59)
--- NOTE | 2021-01-10 09:20 | PM.CNCAR ---
History of Present Illness History of Present Illness Date of Service: 01/10/21 Requesting physician: Tomas Winters Consult reason: atrial fibrillation Chief complaint: Sob, cough ,fever Narrative: I was requested to see Mitchel in cardiology consultation today for development of atrial fibrillation rapid ventricular response this morning. Patient says around an hour ago he developed sudden onset chest tightness associated with rapid heart rate and palpitations. He was noted to convert into atrial fibrillation around 07:50 this morning. He denies any prior history of atrial fibrillation. EKG performed this morning shows atrial fibrillation rapid ventricular response with ischemic EKG changes. He was started immediately on Cardizem drip and says since given the medications he feels a lot better. Chest tightness improved however he feels pleuritic kind of chest pain in the right back/thoracic area. This pain has been present since his admission. He is noted to have right upper lobe pneumonia by CT scan of the chest. Also admitted with acute on chronic anemia with significant low hemoglobin. He runs generally anemic and received an infusion by Hematology. This is suspected to be due to chronic blood loss from small bowel angiodysplasia. He has no upper GI or colonic pathology as per the GI consultation. Patient denies any recent active bleeding. Patient says recently about 2 weeks ago he fell on concrete and he had right knee pain followed by gout initially in the right foot which was treated with steroids and subsequently developed gout in his left foot which was treated with Indocin. He said prior to his knee injury and the gout he ambulates without having any exertional chest tightness. He does get exertional shortness of breath related to COPD but this is not go worse. He denies any orthopnea, PND, leg edema. Review of Systems Constitutional: Constitutional: Reports chills, Reports fever(s), Denies headache(s), Denies poor appetite, Denies weight gain and Denies weight loss ENT: Denies headache(s) Cardiovascular: Cardiovascular: Denies pedal edema, Denies Loss of Consciousness, Reports palpitations, Reports dyspnea on exertion and Reports other (Chest tightness) Respiratory: Respiratory: Reports pain on inspiration and Reports dyspnea on exertion Gastrointestinal: Gastrointestinal: Reports no additional gastrointestinal complaints Genitourinary: Genitourinary: Reports no additional male genitourinary complaints Musculoskeletal: Musculoskeletal: Reports no additional musculoskeletal complaints Neurologic: Reports system reviewed and no additional complaints, except as documented and Denies headache(s) Psychiatric: Psychiatric: Reports no additional psychiatric complaints Endocrine: Endocrine: Reports no additional endocrine complaints and Reports palpitations Hematologic/Lymphatic: Hematologic/Lymphatic: Reports no additional hematologic/lymphatic complaints [facility] Past Medical History Medical History COPD (chronic obstructive pulmonary disease) GERD (gastroesophageal reflux disease) HTN (hypertension) Iron deficiency anemia Family History Family History Father Liver cancer Diabetes mellitus Mother Emphysema, unspecified CVD (cardiovascular disease) Maternal Grandmother No problems noted. Maternal Grandfather No problems noted. Paternal Grandfather No problems noted. Paternal Grandmother No problems noted. Sister No problems noted. Surgical History Surgical History H/O umbilical hernia repair Social History Social History Household Members: Spouse Housing: House Do you presently have visiting nurse or other home services: No Alcohol intake: never Patient Tobacco Use Status: Former Tobacco user Quit Date: 5 years Tobacco use type: Cigarette Second Hand Smoke Exposure: No Use of substances other than those prescribed or required for medical reasons: No Currently Displaying Signs/Symptoms of Drug Intoxication Withdrawal: No Have you been hit, kicked, punched, or otherwise hurt by someone within the past year? If so, by whom?: No Do you feel safe in your current relationship?: Yes Is there a partner from a previous relationship who is making you feel unsafe now?: No Are you made to feel afraid or neglected: No Advance Directives: No Advance Directives Information Provided: Yes Do you have thoughts of harming others: None Do you have a plan to hurt others: No Plan Recently lost weight without trying: No How much weight loss: Not applicable Eating poorly because of decreased appetite: No Nutrition screen score: 0 Nutrition Risks: No Nutritional Risk Poor oral hygiene: No Current occupational status: employed 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 Meds Allergies Allergy/AdvReac Type Severity Reaction Status Date / Time adhesive tape Allergy Unknown RASH Verified 01/08/21 13:00 Active Medications: Current Medications Generic Name Dose Route Start Last Admin Trade Name Freq PRN Reason Stop Dose Admin Acetaminophen 650 mg 01/08/21 15:58 01/09/21 13:47 Acetaminophen 325 Mg Tablet PO 650 mg Q6H PRN Administration Pain, Mild (Pain Scale 1-3) Al Hydroxide/Mg Hydroxide 30 ml 01/08/21 15:58 Magnesium Hydrox/Alum Hydrox 30 Ml Oral.Susp PO Q4H PRN Heartburn/Nausea Albuterol Sulfate 2.5 mg 01/08/21 15:58 Albuterol Sulfate (0.083%) 2.5 Mg/3 Ml Vial.Neb INHALE Q3H PRN Shortness of Breath/Wheezing Albuterol/Ipratropium 3 ml 01/08/21 20:00 01/10/21 07:17 Albuterol/Iprat 2.5/0.5mg 3 Ml Ampul.Neb INHALE 3 ml RQ6H WHILE AWAKE ELKIN Administration Benzonatate 100 mg 01/10/21 09:00 01/10/21 08:59 Benzonatate 100 Mg Capsule PO 100 mg TID ELKIN Administration Ferrous Sulfate 324 mg 01/08/21 17:00 01/10/21 08:22 Ferrous Sulfate 324 Mg Tablet. PO 324 mg BIDWM ELKIN Administration Ceftriaxone Sodium 1 gm/ 50 mls @ 100 mls/hr 01/09/21 14:00 01/09/21 14:27 Sodium Chloride IV Infused Q24H ELKIN Infusion Azithromycin 500 mg/ Sodium 250 mls @ 125 mls/hr 01/08/21 18:00 01/09/21 20:16 Chloride IV Infused Q24H ELKIN Infusion Magnesium Sulfate 2 gm in 50 mls @ 25 mls/hr 01/10/21 08:39 01/10/21 08:59 Magnesium Sulfate/H2o IV 01/10/21 10:38 25 mls/hr ONCE ONE Administration Diltiazem HCl 125 mg/ Sodium 125 mls @ 0 mls/hr 01/10/21 09:00 Chloride IVCONT .Q0M ELKIN Protocol Per Protocol Amiodarone HCl 150 mg in 100 mls @ 600 mls/hr 01/10/21 09:30 Nexterone IV 01/10/21 09:39 ONCE ONE Losartan Potassium 25 mg 01/09/21 09:00 01/10/21 08:22 Losartan Potassium 25 Mg Tablet PO 25 mg DAILY ELKIN Administration Protocol Omeprazole 20 mg 01/08/21 16:30 01/10/21 05:47 Omeprazole 20 Mg Capsule. PO 20 mg BID@2255,8302 [facility] Administration Ondansetron HCl 4 mg 01/08/21 15:58 Ondansetron Hcl 4 Mg/2 Ml Vial IVPUSH Q8H PRN Nausea and Vomiting Pharmacy Consult 1 each 01/08/21 15:12 Consult Rx Perform Med Rec MISCELLANE ONCE PRN Consult order Sodium Chloride 3 ml 01/08/21 16:00 01/10/21 08:22 0.9 % Sodium Chloride Flush 3 Ml Syringe IVFLUSH 3 ml QSHIFT [facility] Administration Home Medications Medication Instructions Recorded Confirmed Last Taken Type ascorbic acid (vitamin C) [Vitamin 500 mg PO DAILY 07/02/20 01/08/21 Unknown History C] ferrous sulfate [Iron (ferrous 325 mg PO BID 07/02/20 01/08/21 Unknown History sulfate)] Physical Exam Vital Signs: Vital Signs: Last Vital Signs Temp 99.0 F 01/10/21 07:41 Pulse 94 01/10/21 08:59 Resp 20 01/10/21 07:41 BP 133/63 01/10/21 08:59 Pulse Ox 90 L 01/10/21 07:41 Body Mass Index 34.4 Results Labs and Meds Result diagrams: 01/10/21 05:13 01/10/21 05:13 Lab results: Laboratory Results - last 24 hr 01/08/21 01/09/21 01/10/21 13:40 15:00 05:13 WBC 8.3 RBC 2.98 L Hgb 7.7 L Hct 24.9 L MCV 83.6 MCH 25.8 L MCHC 30.9 L RDW 16.6 H Plt Count 270 MPV 9.9 Immature Gran % (Auto) Neut % (Auto) Lymph % (Auto) [place] % (Auto) Eos % (Auto) Baso % (Auto) Lymph # (Auto) [place] # (Auto) Eos # (Auto) Baso # (Auto) Abs Immat Gran (auto) Absolute Neuts (auto) Absolute Nucleated RBC 0.000 Nucleated RBC % (auto) 0.0 PT 15.9 H INR 1.4 H Sodium Potassium Chloride Carbon Dioxide Anion Gap BUN Creatinine Estim Creat Clear Calc Estimated GFR Random Glucose Fasting Glucose Calcium Magnesium Blood Type O Positive Antibody Screen NEGATIVE Crossmatch See Detail 01/10/21 01/10/21 01/10/21 05:13 05:13 05:13 WBC 8.4 Cancelled RBC 3.09 L Cancelled Hgb 8.0 L Cancelled Hct 25.9 L Cancelled MCV 83.8 Cancelled MCH 25.9 L Cancelled MCHC 30.9 L Cancelled RDW 17.1 H Cancelled Plt Count 282 Cancelled MPV 9.9 Cancelled Immature Gran % (Auto) 1.1 H Neut % (Auto) 73.7 H Lymph % (Auto) 14.1 L [place] % (Auto) 9.8 Eos % (Auto) 0.7 Baso % (Auto) 0.6 Lymph # (Auto) 1.2 [place] # (Auto) 0.8 Eos # (Auto) 0.1 Baso # (Auto) 0.1 Abs Immat Gran (auto) 0.09 H Absolute Neuts (auto) 6.2 Absolute Nucleated RBC 0.000 Cancelled Nucleated RBC % (auto) 0.0 Cancelled PT INR Sodium 140 Potassium 3.8 Chloride 108 Carbon Dioxide 22 Anion Gap 14 BUN 13 Creatinine 0.82 Estim Creat Clear Calc 118.8 Estimated GFR > 60 Random Glucose Fasting Glucose 106 H Calcium 7.6 L Magnesium 2.2 Blood Type Antibody Screen Crossmatch 01/10/21 05:13 WBC RBC Hgb Hct MCV MCH MCHC RDW Plt Count MPV Immature Gran % (Auto) Neut % (Auto) Lymph % (Auto) [place] % (Auto) Eos % (Auto) Baso % (Auto) Lymph # (Auto) [place] # (Auto) Eos # (Auto) Baso # (Auto) Abs Immat Gran (auto) Absolute Neuts (auto) Absolute Nucleated RBC Nucleated RBC % (auto) PT INR Sodium Cancelled Potassium Cancelled Chloride Cancelled Carbon Dioxide Cancelled Anion Gap Cancelled BUN Cancelled Creatinine Cancelled Estim Creat Clear Calc Cancelled Estimated GFR Cancelled Random Glucose Cancelled Fasting Glucose Calcium Cancelled Magnesium Blood Type Antibody Screen Crossmatch EKG shows atrial fibrillation rapid ventricular response with marked anterolateral and lateral ST depression suggestive ischemia most likely rate related. Assessment and Plan (1) Atrial fibrillation with rapid ventricular response: Status: Acute Symptomatic atrial fibrillation rapid ventricular response with symptoms of chest tightness and palpitation with ischemic looking EKG changes. Most likely triggers his acute pneumonia in the setting of underlying COPD. He has never had prior history of atrial fibrillation and his atrial fibrillation is less than 2 hours of onset. Given his complicated scenario with chronic GI blood loss and acute anemia, this presents to difficult clinical decision making given that he cannot be anticoagulated without risk of significant bleeding. Best option would be to try to get him out of atrial fibrillation within 24-48 hours to reduce his risk of stroke and avoid long-term oral anticoagulation use. This was discussed with him in details. This should also help with his ischemic EKG changes. Would suggest to start him on IV amiodarone with loading followed by drip. If this fails to convert him back to sinus rhythm, will need synchronized elective cardioversion. Small risk of stroke still present associated with atrial fibrillation without anticoagulation was discussed with him. He understands and agrees. Trend troponins given his marked ischemic EKG changes. Will probably require ischemic workup at some point in time given his multiple risk factors. Continue to maintain hematocrit above 30. Continue treat his underlying pulmonary parenchymal disease with pneumonia and COPD aggressively. Please use pulmonary specific bronchodilators. Can use intermittent Cardizem for rate control. Will follow the patient closely. Thank you for allowing us to partake in his care Procedures Date of Service Date of Service: 01/10/21
[2021-01-10] MEDS: Amiodarone/Dextrose 150 MG/100 ML PLAST..BAG 600 MG IV (09:36)
--- NOTE | 2021-01-10 10:13 | MHC.CM.PN ---
met with pt wh lives with his pt reports not having servceis prior to admisison he does not anticapate needing services when dcd his will schumacher sport him home
[2021-01-10 10:21] LABS: Troponin-I High Sensitivity 9.4 ng/L (<3.5-35.0)
[2021-01-10] MEDS: Amiodarone HCL 900 MG in 0.9 % Sodium Chloride 500 ML 34.53 MG IVCONT (10:22)
--- NOTE | 2021-01-10 12:17 | ECG_ITS ---
Test Reason : RHYTHM CHANGE Blood Pressure : / mmHG Vent. Rate : 083 BPM Atrial Rate : 083 BPM P-R Int : 154 ms QRS Dur : 108 ms QT Int : 372 ms P-R-T Axes : 033 006 023 degrees QTc Int : 437 ms Normal sinus rhythm Normal ECG When compared with ECG of 10-JAN-2021 08:10, Sinus rhythm has replaced Atrial fibrillation Vent. rate has decreased BY 98 BPM QRS duration has decreased Nonspecific T wave abnormality no longer evident in Anterolateral leads Referred By: Tomas Winters Electronically Signed By:ARIANA MONTERROSO MD
--- NOTE | 2021-01-10 13:24 | PC.NURSE ---
0800 Patient hr 170s-200 on tele. EKG confirmed A fib with RVR. Patient c/o mild chest tightness. Hospitalist and cotton bag clipper notified and at bedside to evaluate patient. 20 mg IV cardizem given with no effect. IV amioderone drip started at 1100. Patient converted to NSR at 12:17. HR at this time 82, patient resting comfortably in recliner.
[2021-01-10 13:52] LABS: Troponin-I High Sensitivity 14.2 ng/L (<3.5-35.0)
[2021-01-10] MEDS: cefTRIAXone sodium 1 GM in 0.9 % Sodium Chloride 50 ML IV (15:13)
--- NOTE | 2021-01-10 15:19 | P.PNIM_ITS ---
Subjective Subjective Date of Service: 01/10/21 Interval History: The patient was seen and evaluated this morning Laying in bed, feels comfortable overall Hemoglobin stable around 8 Developed atrial fibrillation of new onset with rapid ventricular response Denies any fever, chills or shortness of breath No reported other overnight events. Systemic review: No fever but still reporting chills and mild weakness Chest tightness and feeling of palpitations No shortness of breath or coughing No abdominal pain, nausea or vomiting No urinary symptoms No any rash or wounds Physical Exam Vital Signs: Vital Signs: Last Vital Signs Temp 99.6 F 01/10/21 11:18 Pulse 81 01/10/21 12:16 Resp 20 01/10/21 11:18 BP 114/60 01/10/21 11:18 Pulse Ox 93 01/10/21 11:18 Body Mass Index 34.4 Const: Other: Constitutional : Alert, oriented, in mild respiratory distress Neck : Normal inspection, Supple Cardiovascular : Irregularly irregular, S1 S2, no lower extremity edema Respiratory : Decrease bilateral air entry mainly at the right lower quadrant with basal crackles and expiratory wheezes bilaterally Gastrointestinal: soft, lax, Normal bowel sounds, Non tender Skin : Warm/Dry, No rash Neurological : Alert & oriented x3, No focal deficit Objective Data Current Medications Generic Name Dose Route Start Last Admin Trade Name Freq PRN Reason Stop Dose Admin Acetaminophen 650 mg 01/08/21 15:58 01/09/21 13:47 Acetaminophen 325 Mg Tablet PO 650 mg Q6H PRN Administration Pain, Mild (Pain Scale 1-3) Al Hydroxide/Mg Hydroxide 30 ml 01/08/21 15:58 Magnesium Hydrox/Alum Hydrox 30 Ml Oral.Susp PO Q4H PRN Heartburn/Nausea Albuterol Sulfate 2.5 mg 01/08/21 15:58 Albuterol Sulfate (0.083%) 2.5 Mg/3 Ml Vial.Neb INHALE Q3H PRN Shortness of Breath/Wheezing Albuterol/Ipratropium 3 ml 01/08/21 20:00 01/10/21 13:37 Albuterol/Iprat 2.5/0.5mg 3 Ml Ampul.Neb INHALE Not Given RQ6H WHILE AWAKE ELKIN Benzonatate 100 mg 01/10/21 09:00 01/10/21 15:13 Benzonatate 100 Mg Capsule PO 100 mg TID ELKIN Administration Ferrous Sulfate 324 mg 01/08/21 17:00 01/10/21 08:22 Ferrous Sulfate 324 Mg Tablet. PO 324 mg BIDWM ELKIN Administration Ceftriaxone Sodium 1 gm/ 50 mls @ 100 mls/hr 01/09/21 14:00 01/10/21 15:13 Sodium Chloride IV 100 mls/hr Q24H ELKIN Administration Azithromycin 500 mg/ Sodium 250 mls @ 125 mls/hr 01/08/21 18:00 01/09/21 20:16 Chloride IV Infused Q24H ELKIN Infusion Diltiazem HCl 125 mg/ Sodium 125 mls @ 0 mls/hr 01/10/21 09:00 Chloride IVCONT .Q0M ELKIN Protocol Per Protocol Amiodarone HCl 900 mg/ Sodium 518 mls @ 34.533 mls/hr 01/10/21 10:15 01/10/21 10:22 Chloride IVCONT 1 mg/min .Q15H1M ELKIN 34.53 mls/hr Administration Protocol 1 MG/MIN Losartan Potassium 25 mg 01/09/21 09:00 01/10/21 08:22 Losartan Potassium 25 Mg Tablet PO 25 mg DAILY ELKIN Administration Protocol Omeprazole 20 mg 01/08/21 16:30 01/10/21 05:47 Omeprazole 20 Mg Capsule. PO 20 mg BID@0630,1630 ELKIN Administration Ondansetron HCl 4 mg 01/08/21 15:58 Ondansetron Hcl 4 Mg/2 Ml Vial IVPUSH Q8H PRN Nausea and Vomiting Pharmacy Consult 1 each 01/08/21 15:12 Consult Rx Perform Med Rec MISCELLANE ONCE PRN Consult order Sodium Chloride 3 ml 01/08/21 16:00 01/10/21 15:13 0.9 % Sodium Chloride Flush 3 Ml Syringe IVFLUSH Not Given QSHIFT [facility] Labs CBC & Chem 7: 01/10/21 05:13 01/10/21 05:13 Labs: Laboratory Results - last 24 hr 01/09/21 01/10/21 01/10/21 15:00 05:13 05:13 WBC 8.3 RBC 2.98 L Hgb 7.7 L Hct 24.9 L MCV 83.6 MCH 25.8 L MCHC 30.9 L RDW 16.6 H Plt Count 270 MPV 9.9 Immature Gran % (Auto) Neut % (Auto) Lymph % (Auto) [place] % (Auto) Eos % (Auto) Baso % (Auto) Lymph # (Auto) [place] # (Auto) Eos # (Auto) Baso # (Auto) Abs Immat Gran (auto) Absolute Neuts (auto) Absolute Nucleated RBC 0.000 Nucleated RBC % (auto) 0.0 PT 15.9 H INR 1.4 H Sodium 140 Potassium 3.8 Chloride 108 Carbon Dioxide 22 Anion Gap 14 BUN 13 Creatinine 0.82 Estim Creat Clear Calc 118.8 Estimated GFR > 60 Random Glucose Fasting Glucose 106 H Calcium 7.6 L Magnesium 2.2 Troponin I High Sens 01/10/21 01/10/21 01/10/21 05:13 05:13 05:13 WBC 8.4 Cancelled RBC 3.09 L Cancelled Hgb 8.0 L Cancelled Hct 25.9 L Cancelled MCV 83.8 Cancelled MCH 25.9 L Cancelled MCHC 30.9 L Cancelled RDW 17.1 H Cancelled Plt Count 282 Cancelled MPV 9.9 Cancelled Immature Gran % (Auto) 1.1 H Neut % (Auto) 73.7 H Lymph % (Auto) 14.1 L [place] % (Auto) 9.8 Eos % (Auto) 0.7 Baso % (Auto) 0.6 Lymph # (Auto) 1.2 [place] # (Auto) 0.8 Eos # (Auto) 0.1 Baso # (Auto) 0.1 Abs Immat Gran (auto) 0.09 H Absolute Neuts (auto) 6.2 Absolute Nucleated RBC 0.000 Cancelled Nucleated RBC % (auto) 0.0 Cancelled PT INR Sodium Cancelled Potassium Cancelled Chloride Cancelled Carbon Dioxide Cancelled Anion Gap Cancelled BUN Cancelled Creatinine Cancelled Estim Creat Clear Calc Cancelled Estimated GFR Cancelled Random Glucose Cancelled Fasting Glucose Calcium Cancelled Magnesium Troponin I High Sens 01/10/21 01/10/21 09:30 12:21 WBC RBC Hgb Hct MCV MCH MCHC RDW Plt Count MPV Immature Gran % (Auto) Neut % (Auto) Lymph % (Auto) [place] % (Auto) Eos % (Auto) Baso % (Auto) Lymph # (Auto) [place] # (Auto) Eos # (Auto) Baso # (Auto) Abs Immat Gran (auto) Absolute Neuts (auto) Absolute Nucleated RBC Nucleated RBC % (auto) PT INR Sodium Potassium Chloride Carbon Dioxide Anion Gap BUN Creatinine Estim Creat Clear Calc Estimated GFR Random Glucose Fasting Glucose Calcium Magnesium Troponin I High Sens 9.4 14.2 D Microbiology Microbiology Results: Microbiology 01/08/21 13:45 Blood Culture - Preliminary Blood - Venous No growth after 24 hours. 01/08/21 13:41 Blood Culture - Preliminary Blood - Venous No growth after 24 hours. Quality Stroke Does the patient have a stroke diagnosis?: No VTE Prior VTE?: No VTE Risk Level:: Medical - moderate - high VTE Device Contraindication: N/A - Device Ordered VTE Drug Contraindication: Treatment Not Indicated Assessment and Plan (1) Sepsis: Status: Acute (2) Fever: Status: Acute (3) Pneumonia: Status: Acute (4) COPD (chronic obstructive pulmonary disease) with acute bronchitis: Status: Acute (5) Symptomatic anemia: Status: Acute (6) Acute on chronic blood loss anemia: Status: Acute Assessment and Plan: A 60 years old male with PMH of AVM small-bowel, COPD, HTN, GERD among others who presents to the hospital with shortness of breath, cough and weakness for the 3 days. New onset atrial fibrillation Atrial fibrillation with RVR Heart rate up to 170s Cardizem did not help much Loaded with amiodarone with good response, converted back to sinus rhythm Cardiology input appreciated Pending echo Cannot start anticoagulation given his AVM problem Sepsis Secondary to pneumonia little better today CTA chest showing consolidation Blood culture pending Continue azithromycin and ceftriaxone Wean oxygen down as tolerated Symptomatic anemia Secondary to acute on chronic blood-loss anemia Hemoglobin this morning 6.8 baseline between 9-10 From chronic AVM blood loss Continue iron supplement Transfused 3 units blood, had reaction with the 4th unit and was held GI input appreciated COPD exacerbation Received steroids, will hold on more with the worsening bleeding Continue DuoNeb nebulizer Cough medicine Transfusion reaction Developed fever and tachycardia wide receiving a 4th dose Contacted the blood bank for reaction Transfusion discontinued and the patient vitals settled DVT PPX SCDs
[2021-01-10] MEDS: Azithromycin 500 MG in 0.9 % Sodium Chloride 250 ML 125 MG IV (18:18)
[2021-01-11] VITALS (12 sets, daily range): BP systolic 109–138; BP diastolic 61–84; PULSE 77–137; RESP 17–20; TEMP 36.6–37.2; O2SAT 93–99
[2021-01-11] MEDS: 0.9 % Sodium Chloride Flush 3 ML SYRINGE IVFLUSH ×3 (00:47→20:02)
[2021-01-11] MEDS: Omeprazole 20 MG CAPSULE.DR PO ×2 (06:24→15:40)
[2021-01-11 07:02] LABS: Hematocrit 26.5 % (42-52); Hemoglobin 7.9 g/dl (14.0-18.0); Mean Corpuscular HGB Conc 29.8 g/dl (31.0-36.0); Mean Corpuscular Hemoglobin 25.2 pg (27.0-33.0); Mean Corpuscular Volume 84.7 fL (80-98); Mean Platelet Volume 9.7 fL (9.4-12.4); NRBC Pct Auto 0.3 /100WBC (0.0-0.2); Platelet Count 307 X10*3/uL (160-400); Red Blood Count 3.13 X10*6/uL (4.60-5.80); Red Cell Distribution Width 17.2 % (11.0-16.0); White Blood Count 7.4 X10*3/uL (4.8-10.8)
[2021-01-11 07:26] LABS: Anion Gap 13 (12-20); Blood Urea Nitrogen 14 mg/dL (9-16); Carbon Dioxide 24 mmol/L (22-29); Chloride 107 mmol/L (96-108); Creatinine Clr Calc Pharmacy 114.6; Estimated Glomerular Filt Rate > 60; Glucose Random 104 mg/dL (60-115); Potassium 4.5 mmol/L (3.3-5.1); Sodium 139 mmol/L (135-145)
--- NOTE | 2021-01-11 08:01 | P.PNIM_ITS ---
Subjective Subjective Date of Service: 01/11/21 Interval History: gi bleed,AFIB RVR Review of Systems No fever ,chest pain, palpitation No shortness of breath or coughing No abdominal pain, nausea or vomiting or urinary symptoms no blood stool Physical Exam Vital Signs: Vital Signs: Last Vital Signs Temp 97.8 F 01/11/21 07:18 Pulse 78 01/11/21 07:18 Resp 18 01/11/21 07:18 BP 122/63 01/11/21 07:18 Pulse Ox 94 01/11/21 07:18 Body Mass Index 34.4 physical exam: Constitutional : Alert, oriented, in mild respiratory distress Neck : Normal inspection, Supple Cardiovascular : RRR, S1 S2, no lower extremity edema Respiratory : Decrease bilateral air entry mainly at the right lower quadrant with basal crackles and expiratory wheezes bilaterally Gastrointestinal: soft, lax, Normal bowel sounds, Non tender Skin : Warm/Dry, No rash Neurological : Alert & oriented x3, No focal deficit Objective Data Current Medications Generic Name Dose Route Start Last Admin Trade Name Freq PRN Reason Stop Dose Admin Acetaminophen 650 mg 01/08/21 15:58 01/09/21 13:47 Acetaminophen 325 Mg Tablet PO 650 mg Q6H PRN Administration Pain, Mild (Pain Scale 1-3) Al Hydroxide/Mg Hydroxide 30 ml 01/08/21 15:58 Magnesium Hydrox/Alum Hydrox 30 Ml Oral.Susp PO Q4H PRN Heartburn/Nausea Albuterol Sulfate 2.5 mg 01/08/21 15:58 Albuterol Sulfate (0.083%) 2.5 Mg/3 Ml Vial.Neb INHALE Q3H PRN Shortness of Breath/Wheezing Albuterol/Ipratropium 3 ml 01/08/21 20:00 01/10/21 19:58 Albuterol/Iprat 2.5/0.5mg 3 Ml Ampul.Neb INHALE 3 ml RQ6H WHILE AWAKE ELKIN Administration Benzonatate 100 mg 01/10/21 09:00 01/10/21 20:34 Benzonatate 100 Mg Capsule PO 100 mg TID ELKIN Administration Ferrous Sulfate 324 mg 01/08/21 17:00 01/10/21 18:18 Ferrous Sulfate 324 Mg Tablet.Dr PO 324 mg BIDWM ELKIN Administration Ceftriaxone Sodium 1 gm/ 50 mls @ 100 mls/hr 01/09/21 14:00 01/10/21 16:14 Sodium Chloride IV Infused Q24H ELKIN Infusion Azithromycin 500 mg/ Sodium 250 mls @ 125 mls/hr 01/08/21 18:00 01/10/21 20:34 Chloride IV Infused Q24H ELKIN Infusion Diltiazem HCl 125 mg/ Sodium 125 mls @ 0 mls/hr 01/10/21 09:00 Chloride IVCONT .Q0M ELKIN Protocol Per Protocol Amiodarone HCl 900 mg/ Sodium 518 mls @ 34.533 mls/hr 01/10/21 10:15 01/11/21 02:11 Chloride IVCONT Not Given .Q15H1M ELKIN Protocol 1 MG/MIN Losartan Potassium 25 mg 01/09/21 09:00 01/10/21 08:22 Losartan Potassium 25 Mg Tablet PO 25 mg DAILY ELKIN Administration Protocol Omeprazole 20 mg 01/08/21 16:30 01/11/21 06:24 Omeprazole 20 Mg Capsule.Dr PO 20 mg BID@0630,1630 ELKIN Administration Ondansetron HCl 4 mg 01/08/21 15:58 Ondansetron Hcl 4 Mg/2 Ml Vial IVPUSH Q8H PRN Nausea and Vomiting Pharmacy Consult 1 each 01/08/21 15:12 Consult Rx Perform Med Rec MISCELLANE ONCE PRN Consult order Sodium Chloride 3 ml 01/08/21 16:00 01/11/21 00:47 0.9 % Sodium Chloride Flush 3 Ml Syringe IVFLUSH 3 ml QSHIFT ELKIN Administration Labs CBC & Chem 7: 01/11/21 06:24 01/11/21 06:24 Labs: Laboratory Results - last 24 hr 01/10/21 01/10/21 01/10/21 05:13 09:30 12:21 WBC RBC Hgb Hct MCV MCH MCHC RDW Plt Count MPV Absolute Nucleated RBC Nucleated RBC % (auto) Sodium Potassium Chloride Carbon Dioxide Anion Gap BUN Creatinine Estim Creat Clear Calc Estimated GFR Random Glucose Calcium Magnesium 2.2 Troponin I High Sens 9.4 14.2 D 01/11/21 01/11/21 06:24 06:24 WBC 7.4 RBC 3.13 L Hgb 7.9 L Hct 26.5 L MCV 84.7 MCH 25.2 L MCHC 29.8 L RDW 17.2 H Plt Count 307 MPV 9.7 Absolute Nucleated RBC 0.020 H Nucleated RBC % (auto) 0.3 H Sodium 139 Potassium 4.5 Chloride 107 Carbon Dioxide 24 Anion Gap 13 BUN 14 Creatinine 0.85 Estim Creat Clear Calc 114.6 Estimated GFR > 60 Random Glucose 104 Calcium 8.0 L Magnesium Troponin I High Sens Microbiology Microbiology Results: Microbiology 01/08/21 13:45 Blood Culture - Preliminary Blood - Venous No growth after 48 hours. 01/08/21 13:41 Blood Culture - Preliminary Blood - Venous No growth after 48 hours. Quality Stroke Does the patient have a stroke diagnosis?: No VTE Prior VTE?: No VTE Risk Level:: Medical - moderate - high VTE Device Contraindication: N/A - Device Ordered VTE Drug Contraindication: Treatment Not Indicated Assessment and Plan (1) Atrial fibrillation with rapid ventricular response: Status: Acute (2) Symptomatic anemia: Status: Acute Assessment and Plan: day-3 60 years old male with PMH of AVM small-bowel, COPD, HTN, GERD among others who presents to the hospital with shortness of breath, cough and weakness for the 3 days. 1.Afib rvr: Patient patient was in AFib with RVR, already on amiodarone drip, we have plan to add IV Cardizem but patient converted into sinus rhythm-than IV Cardizem. Currently stop IV Cardizem as well as IV amiodarone drip. Given 1 dose of IV amiodarone 150 mg, discussed with Cardiology patient will be switched to p.o. amiodarone loading 400 mg t.i.d. for 1 week and then 200 mg daily afterw ards. Will also add small dose metoprolol. 2.Sepsis Secondary to pneumonia Feels improving CTA showing consolidation Blood culture pending Continue azithromycin and ceftriaxone Wean oxygen down as tolerated 3.Symptomatic anemia Secondary to acute on chronic blood-loss anemia Hemoglobin this morning 6.8 baseline between 9-10 From chronic AVM blood loss will continue to moniter, GI evaluation appreciated-Worsening anemia thought to be due to increased GI blood loss from his AVM's while on the recent NSAIDs and steroids and/or worsened anemia due to pneumonia and systemic illness. Plan:Continue iron supplement Already got Transfused 2 units blood, to received 2 more units h/h seems around 8 Will continue to monitor H&H In addition GI recommended avoid aspirin and NSAIDs., if any new signs of GI bleed may need further workup. 4.COPD exacerbation Received steroids, will hold on more with the worsening bleeding Continue DuoNeb nebulizer Cough medicine DVT PPX SCDs
[2021-01-11] MEDS: Losartan Potassium 25 MG TABLET PO (08:39)
[2021-01-11] MEDS: Benzonatate 100 MG CAPSULE PO ×3 (08:39→19:59)
[2021-01-11] MEDS: Ferrous Sulfate 324 MG TABLET.DR PO ×2 (08:39→17:56)
--- NOTE | 2021-01-11 09:57 | PM.PNCARD ---
Subjective Subjective Date of Service: 01/11/21 <NBA Jackson - Last Filed: 01/11/21 11:54> 01/11/21 <Maxim Gutierrez MD - Last Filed: 01/11/21 12:57> Principal diagnosis: PNA, new PAF <NBA Jackson - Last Filed: 01/11/21 11:54> Interval history: Cardiology follow up for AF. Seen at 0820. Today he reports that he is feeling better overall. He is not noticing any heart palpitations. He has no chest tightness like yesterday am. He does feel a discomfort right upper chest/ back with deep inspiration. Mild sob when walking to the bathroom. He will cough if he lays flat on his back. Did not sleep well due to being in hospital. No dizziness, presyncope, edema. About to sit up and eat his breakfast. <NBA Jackson - Last Filed: 01/11/21 11:54> Review of Systems Review of Systems as above <NBA Jackson - Last Filed: 01/11/21 11:54> Yes all other systems are reviewed and are negative <NBA Jackson - Last Filed: 01/11/21 11:54> Physical Exam Vital Signs: Last Vital Signs Temp 97.8 F 01/11/21 07:18 Pulse 78 01/11/21 08:39 Resp 18 01/11/21 07:18 BP 122/63 01/11/21 08:39 Pulse Ox 94 01/11/21 07:18 Body Mass Index 34.4 <NBA Jackson - Last Filed: 01/11/21 11:54> Const General: cooperative, no acute distress, alert and awake <NBA Jackson - Last Filed: 01/11/21 11:54> Orientation/consciousness: patient oriented x3 <NBA Jackson Last Filed: 01/11/21 11:54> Neck Neck: Yes normal visual inspection and Yes no JVD <NBA Jackson - Last Filed: 01/11/21 11:54> Resp Effort & Inspection: normal respiratory effort, able to speak in complete sentences and not labored <Priya HarrisonCHRISC - Last Filed: 01/11/21 11:54> Auscultation: rales (coarse lung sounds right lung prakash, scattered rales noted. Left clear), no rhonchi and no wheezes <Priya HarrisonCHRISC - Last Filed: 01/11/21 11:54> Cardio Palpation: normal PMI <Priya HarrisonCHRISC - Last Filed: 01/11/21 11:54> Rate: regular rate <Priya HarrisonCHRISC - Last Filed: 01/11/21 11:54> Rhythm: regular rhythm <Priya HarrisonCHRISC - Last Filed: 01/11/21 11:54> Heart sounds: S1 normal heart sound present and S2 normal heart sound present <Priya HarrisonCHRISC - Last Filed: 01/11/21 11:54> Peripheral pulses: Peripheral pulses 2+ throughout <Priya HarrisonCHRIS-C - Last Filed: 01/11/21 11:54> GI Inspection: Yes normal to inspection <Priya HarrisonCHRIS-C - Last Filed: 01/11/21 11:54> Neuro General: patient oriented x3 <Priya HarrisonCHRISMarkC - Last Filed: 01/11/21 11:54> Extrem General: Yes normal to inspection and No edema <Priya HarrisonCHRIS-C - Last Filed: 01/11/21 11:54> Results Labs and Meds Result diagrams: : 01/11/21 06:24 01/11/21 06:24 <Priya HarrisonCHRISC - Last Filed: 01/11/21 11:54> Lab results: Laboratory Results - last 24 hr 01/10/21 01/10/21 01/11/21 09:30 12:21 06:24 WBC 7.4 RBC 3.13 L Hgb 7.9 L Hct 26.5 L MCV 84.7 MCH 25.2 L MCHC 29.8 L RDW 17.2 H Plt Count 307 MPV 9.7 Absolute Nucleated RBC 0.020 H Nucleated RBC % (auto) 0.3 H Sodium Potassium Chloride Carbon Dioxide Anion Gap BUN Creatinine Estim Creat Clear Calc Estimated GFR Random Glucose Calcium Troponin I High Sens 9.4 14.2 D 01/11/21 06:24 WBC RBC Hgb Hct MCV MCH MCHC RDW Plt Count MPV Absolute Nucleated RBC Nucleated RBC % (auto) Sodium 139 Potassium 4.5 Chloride 107 Carbon Dioxide 24 Anion Gap 13 BUN 14 Creatinine 0.85 Estim Creat Clear Calc 114.6 Estimated GFR > 60 Random Glucose 104 Calcium 8.0 L Troponin I High Sens <NBA Jackson - Last Filed: 01/11/21 11:54> Progress Note: A&P Assessment and plan (1) Atrial fibrillation with rapid ventricular response: Status: Acute <NBA Jackson - Last Filed: 01/11/21 11:54> Assessment and Plan: Admit with Sepsis and PNA. Yesterday am, 0750, went in to Afib RVR, that was intially treated with Diltiazem then started on Amiodarone drip. Converted back to SR at 1217. ( total 4 hrs 27 min). Has held in SR since then. Tele this am shows SR, rate 80s. Did have palpitation and chest tightness while in afib. Will change Amiodarone drip to PO Loading dose of 400mg bid for 2 weeks, then his dose is to be reduced to 200mg once daily. CHADSVASc score of 1 -HTN. He has hx of bowel angiodysplasia, GIBs and chronic anemia. Hgb was 5.9 on admit and he was transfused 2 units. Hgb 7.9 today. No anticoagulation to be used on him due to high bleeding risk. Watchman device will be considered going forward. Ongoing tele monitoring. EKG in am to eval QTc on amiodarone. We will follow. <NBA Jackson - Last Filed: 01/11/21 11:54> Patient was seen and case discussed with Priya Harrison. After Priya evaluated the patient patient recurrent atrial fibrillation rapid ventricular response. Patient was given additional dose of 150 mg amiodarone. Converted to sinus rhythm and maintain sinus rhythm. Patient symptomatic feels much better in sinus rhythm. Less than overall 24 hours of atrial fibrillation. With given underlying anemia and persistent chronic blood loss, will avoid oral anticoagulation. Increase amiodarone loading to 400 mg t.i.d. for 1 week followed by 400 mg daily for 1 week. Also add low-dose metoprolol 12.5 mg p.o. q.6 hours. P.r.n. intermittent Cardizem. Will continue to follow with the patient. Continue treat underlying pneumonia. Aggressively treat his COPD. Consider sleep apnea evaluation as outpatient. Switch his albuterol to Xopenex <Maxim Gutierrez MD - Last Filed: 01/11/21 12:57> (2) Abnormal finding on EKG: Status: Acute <NBA Jackson - Last Filed: 01/11/21 11:54> Assessment and Plan: EKG while in afib shows anterolateral ischemic changes. He did have chest tightness at that time. troponins were normal. Echo completed this am. Will need ischemic eval when medically appropriate. Ongoing mgt for PNA. <NBA Jackson - Last Filed: 01/11/21 11:54> EKG with ST depression with atrial fibrillation rapid ventricular response. This is suggestive ischemia and probably underlying coronary artery disease. Will suggest outpatient stress test with ischemia. <Maxim Gutierrez MD - Last Filed: 01/11/21 12:57> (3) Acute on chronic blood loss anemia: Status: Acute <NBA Jackson - Last Filed: 01/11/21 11:54> Assessment and Plan: as above <NBA Jackson - Last Filed: 01/11/21 11:54> (4) Pneumonia: Status: Acute <NBA Jackson - Last Filed: 01/11/21 11:54> Assessment and Plan: He reports interval clinical improvement <NBA Jackson - Last Filed: 01/11/21 11:54> Fall Risk Details Current Medications: Current Medications Generic Name Dose Route Start Last Admin Trade Name Freq PRN Reason Stop Dose Admin Acetaminophen 650 mg 01/08/21 15:58 01/09/21 13:47 Acetaminophen 325 Mg Tablet PO 650 mg Q6H PRN Administration Pain, Mild (Pain Scale 1-3) Al Hydroxide/Mg Hydroxide 30 ml 01/08/21 15:58 Magnesium Hydrox/Alum Hydrox 30 Ml Oral.Susp PO Q4H PRN Heartburn/Nausea Albuterol Sulfate 2.5 mg 01/08/21 15:58 Albuterol Sulfate (0.083%) 2.5 Mg/3 Ml Vial.Neb INHALE Q3H PRN Shortness of Breath/Wheezing Albuterol/Ipratropium 3 ml 01/08/21 20:00 01/11/21 08:11 Albuterol/Iprat 2.5/0.5mg 3 Ml Ampul.Neb INHALE Not Given RQ6H WHILE AWAKE ELKIN Benzonatate 100 mg 01/10/21 09:00 01/11/21 08:39 Benzonatate 100 Mg Capsule PO 100 mg TID ELKIN Administration Ferrous Sulfate 324 mg 01/08/21 17:00 01/11/21 08:39 Ferrous Sulfate 324 Mg Tablet. PO 324 mg BIDWM ELKIN Administration Ceftriaxone Sodium 1 gm/ 50 mls @ 100 mls/hr 01/09/21 14:00 01/10/21 16:14 Sodium Chloride IV Infused Q24H ELKIN Infusion Azithromycin 500 mg/ Sodium 250 mls @ 125 mls/hr 01/08/21 18:00 01/10/21 20:34 Chloride IV Infused Q24H ELKIN Infusion Diltiazem HCl 125 mg/ Sodium 125 mls @ 0 mls/hr 01/10/21 09:00 Chloride IVCONT .Q0M ELKIN Protocol Per Protocol Diltiazem HCl 125 mg/ Sodium 125 mls @ 0 mls/hr 01/11/21 09:45 Chloride IVCONT .Q0M ELKIN Protocol Per Protocol Losartan Potassium 25 mg 01/09/21 09:00 01/11/21 08:39 Losartan Potassium 25 Mg Tablet PO 25 mg DAILY ELKIN Administration Protocol Omeprazole 20 mg 01/08/21 16:30 01/11/21 06:24 Omeprazole 20 Mg Capsule. PO 20 mg BID@0630,1630 ELKIN Administration Ondansetron HCl 4 mg 01/08/21 15:58 Ondansetron Hcl 4 Mg/2 Ml Vial IVPUSH Q8H PRN Nausea and Vomiting Pharmacy Consult 1 each 01/08/21 15:12 Consult Rx Perform Med Rec MISCELLANE ONCE PRN Consult order Sodium Chloride 3 ml 01/08/21 16:00 01/11/21 08:39 0.9 % Sodium Chloride Flush 3 Ml Syringe IVFLUSH Not Given QSHIFT ELKIN <NBA Jackson - Last Filed: 01/11/21 11:54> Time Spent With Patient Time: Total time spent is greater than 50% in coordination of care (as documented) at patient's floor/unit and/or counseling patient: 22 <NBA Jackson - Last Filed: 01/11/21 11:54> Time with patient: 15 - 24 minutes <NBA Jackson - Last Filed: 01/11/21 11:54> Progress Note: Quality Stroke Does the patient have a stroke diagnosis?: No <NBA Jackson - Last Filed: 01/11/21 11:54> Procedures Date of Service Date of Service: 01/11/21 <NBA Jackson - Last Filed: 01/11/21 11:54>
--- NOTE | 2021-01-11 10:00 | CA_ITS ---
Transthoracic Echocardiogram Patient (Last, First, Middle): Mitchel Reno, Gender: Male Date of : 1960 Age: 60 Procedure Date: 01/11/2021 Procedure Type: Transthoracic Echocardiogram Location: [facility] [place] Height: 180.34 cm Weight: 112.04 kg BSA: 2.31 m2 Heart Rate: bpm BP: 133 / 63 mmHg Slubber Frame Changer: SERENA Referring MD: Tomas Winters MD Coding Quality Coordinator: Maxim Gutierrez MD Symptoms: New onset Afib Study Quality: Fair ECG Rhythm: Sinus Conclusions: - 1. Normal LV systolic function with normal filling pattern 2. Mild aortic regurgitation 3. No gross pericardial effusion 4. Mildly dilated ascending aorta Findings Left Ventricle Normal left ventricular size, thickness, and systolic function. The visually estimated ejection fraction is between 60-65%. Spectral Doppler is indicative of a normal filling pattern. Right Ventricle Normal right ventricular cavity size and systolic function. Atria The left atrium is normal in size. There is lipomatous hypertrophy of the interatrial septum. Interatrial shunt cannot be excluded. The right atrium is normal in size. Aortic Valve The aortic valve was not well visualized. There is mild calcification of the aortic valve. There is no aortic valve stenosis. There is mild aortic valve regurgitation. Mitral Valve There is mild anterior and posterior mitral leaflet thickening. There is trace mitral valve regurgitation. There is no mitral valve stenosis. Pulmonic Valve The pulmonic valve was not well visualized. Tricuspid Valve The tricuspid valve was not well visualized. Tricuspid regurgitation envelope is inadequate for calculation of right ventricular systolic pressure. Great Vessels The aorta was not well visualized. The pulmonary artery was not well visualized. There is mild dilatation of the ascending aorta measuring 4.20 cm. Venous The inferior vena cava is normal in size and collapses greater than 50% with inspiration. Pericardium/Pleural There is no evidence of pericardial effusion. Prior Study Comparison No prior study available for comparison. Measurements 2D Linear Measurements IVSd: 1.31 0.6-0.9/0.6-1.0 cm LVIDd: 5.41 3.9-5.3/4.2-5.9 cm LVIDd Index: 2.34 2.4-3.2/2.2-3.1 cm/m2 LVIDs: 3.38 2.0-3.6 cm LVPWd: 1.32 0.7-1.1 cm Ao Root: 3.60 2.1-3.5 cm LA Diam: 4.00 2.7-3.8/3.0-4.0 cm LAIDs Index: 1.73 1.5-2.3 cm/m2 LV Mass: 375.83 67-162/88-224 g LV Mass Index: 162.70 43-95/49-115 g/m2 LVOT Diam: 2.30 3.0+(-)1.3 cm 2D Systolic Function EF 4C: 67.90 >55% EF 2C: 65.20 >55% EF BiP: 67.30 >55% Mitral Valve MV Pk E: 0.80 MV PK A: 0.72 MV Decel Time: 140.00 E/A: 1.10 E'Lateral: 15.00 E'Medial: 8.05 E/E' Med: 9.90 E/E' Lat: 5.30 PHT: 41.00 MVA PHT: 5.37 Decel [place]: 5.69 Aortic Valve AoV Pk Lito: 1.76 AoV Pk Grad: 12.00 LVOT LVOT Pk Lito: 1.33 LVOT Mn [place]: 0.94 LVOT VTI: 0.26 LVOT Pk Grad: 7.00 LVOT Mn Grad: 4.00 LVOT Diam: 2.30 LVOT Area: 4.15 Diastolic Function MV Pk E: 0.80 MV Pk A: 0.72 E/A: 1.10 E'Medial: 8.05 E/E' Med: 9.90 E' Laterial: 15.00 E/E' Lat: 5.30 Right Ventricle TAPSE (mm): 2.53 Tricuspid Valve RA Press: 3.00 Great Vessels Aorta Ao Root-2D: 3.60 2.0-3.7 cm Ao Asc: 4.20 2.1-3.4 cm Updated in Other Vendor System with Status of Final Maxim Gutierrez MD electronically signed on 01/11/2021 11:57:54 AM with status of Final
[2021-01-11] MEDS: Amiodarone/Dextrose 150 MG/100 ML PLAST..BAG 600 MG IV (10:18)
[2021-01-11] MEDS: Metoprolol Tartrate 12.5 MG HALFTAB PO ×3 (13:05→19:59)
[2021-01-11] MEDS: Amiodarone HCL 200 MG TABLET 400 MG PO ×2 (13:06→19:59)
[2021-01-11] MEDS: cefTRIAXone sodium 1 GM in 0.9 % Sodium Chloride 50 ML IV (15:41)
[2021-01-11] MEDS: Azithromycin 500 MG in 0.9 % Sodium Chloride 250 ML 125 MG IV (17:56)
[2021-01-11] MEDS: Albuterol/Iprat 2.5/0.5MG 3 ML AMPUL.NEB INHALE (19:35)
[2021-01-12] VITALS (13 sets, daily range): BP systolic 108–136; BP diastolic 54–70; PULSE 70–101; RESP 16–18; TEMP 36.5–37; O2SAT 93–98
[2021-01-12] MEDS: Omeprazole 20 MG CAPSULE.DR PO ×2 (05:54→16:34)
[2021-01-12 06:26] LABS: Hematocrit 26.7 % (42-52); Hemoglobin 7.9 g/dl (14.0-18.0); Mean Corpuscular HGB Conc 29.6 g/dl (31.0-36.0); Mean Corpuscular Volume 84.5 fL (80-98); Mean Platelet Volume 9.9 fL (9.4-12.4); NRBC Pct Auto 0.3 /100WBC (0.0-0.2); Platelet Count 299 X10*3/uL (160-400); Red Blood Count 3.16 X10*6/uL (4.60-5.80); Red Cell Distribution Width 16.9 % (11.0-16.0); White Blood Count 6.3 X10*3/uL (4.8-10.8)
--- NOTE | 2021-01-12 07:00 | ECG_ITS ---
Test Reason : new to amiodarone, assess QTc Blood Pressure : / mmHG Vent. Rate : 076 BPM Atrial Rate : 076 BPM P-R Int : 176 ms QRS Dur : 112 ms QT Int : 438 ms P-R-T Axes : 034 001 025 degrees QTc Int : 492 ms Normal sinus rhythm Prolonged QT Abnormal ECG When compared with ECG of 10-JAN-2021 13:57, QT has lengthened Referred By: Priya Harrison Electronically Signed By:ARIANA MONTERROSO MD
[2021-01-12 07:06] LABS: Anion Gap 13 (12-20); Blood Urea Nitrogen 12 mg/dL (9-16); Calcium 7.9 mg/dL (8.4-10.2); Carbon Dioxide 26 mmol/L (22-29); Chloride 107 mmol/L (96-108); Creatinine Clr Calc Pharmacy 108.3; Estimated Glomerular Filt Rate > 60; Glucose Random 96 mg/dL (60-115); Potassium 4.5 mmol/L (3.3-5.1); Sodium 141 mmol/L (135-145)
[2021-01-12] MEDS: Albuterol/Iprat 2.5/0.5MG 3 ML AMPUL.NEB INHALE ×3 (07:06→18:53)
[2021-01-12] MEDS: Ferrous Sulfate 324 MG TABLET.DR PO ×2 (08:41→16:34)
[2021-01-12] MEDS: Benzonatate 100 MG CAPSULE PO ×3 (08:41→21:45)
[2021-01-12] MEDS: Amiodarone HCL 200 MG TABLET 400 MG PO ×3 (08:41→21:45)
[2021-01-12] MEDS: Losartan Potassium 25 MG TABLET PO (08:41)
[2021-01-12] MEDS: Metoprolol Tartrate 12.5 MG HALFTAB PO (08:41)
[2021-01-12] MEDS: 0.9 % Sodium Chloride Flush 3 ML SYRINGE IVFLUSH ×3 (08:42→21:46)
--- NOTE | 2021-01-12 10:56 | P.PNCA_ITS ---
Subjective Subjective Date of Service: 01/12/21 Principal diagnosis: PNA, new PAF Interval history: Cardiology follow up for PAF. Seen at 0830. Today he reports his breathing is starting to feel better. He has been walking in room and has less sob. He was not aware that the had AFib yesterday day and evening. He did not feel the heart palpitations or chest tightness that he had felt on the day before. He still has some right sided chest and upper back discomfort if he takes a deep breath in. No dizziness, presyncope, syncope, orthopnea or edema. He has been coughing in a laying down position. No signs of bleeding reported. Review of Systems Review of Systems as above Physical Exam Vital Signs: Last Vital Signs Temp 98.6 F 01/12/21 08:00 Pulse 91 01/12/21 08:41 Resp 18 01/12/21 08:00 BP 115/65 01/12/21 08:41 Pulse Ox 93 01/12/21 08:00 Body Mass Index 34.4 Const Other: pale skin color General: cooperative, no acute distress, alert and awake Orientation/consciousness: patient oriented x3 Neck Neck: Yes normal visual inspection and Yes no JVD Resp Other: right sided lung field sound clear at time of exam Effort & Inspection: normal respiratory effort, able to speak in complete sentences and not labored Auscultation: clear to auscultation bilaterally, no rales, no rhonchi and no wheezes Cardio Jugular venous distension: JVD present Palpation: normal PMI Rate: regular rate Rhythm: regular rhythm Heart sounds: S1 normal heart sound present and S2 normal heart sound present GI Inspection: Yes normal to inspection Neuro General: patient oriented x3 Extrem General: Yes normal to inspection and No edema Results Labs and Meds Result diagrams: 01/12/21 05:06 01/12/21 05:06 Lab results: Laboratory Results - last 24 hr 01/08/21 01/12/21 01/12/21 13:40 05:06 05:06 WBC 6.3 RBC 3.16 L Hgb 7.9 L Hct 26.7 L MCV 84.5 MCH 25.0 L MCHC 29.6 L RDW 16.9 H Plt Count 299 MPV 9.9 Absolute Nucleated RBC 0.020 H Nucleated RBC % (auto) 0.3 H Sodium 141 Potassium 4.5 Chloride 107 Carbon Dioxide 26 Anion Gap 13 BUN 12 Creatinine 0.90 Estim Creat Clear Calc 108.3 Estimated GFR > 60 Random Glucose 96 Calcium 7.9 L Crossmatch See Detail Progress Note: A&P Assessment and plan (1) Atrial fibrillation with rapid ventricular response: Status: Acute Assessment and Plan: Admit with Sepsis and PNA. New PAF noted this admit, likely driven by his PNA. Was started on Amiodarone drip for rhythm control. Yesterday changed to PO Amiodarone loading dose and metoprolol. Last PAF converted to SR last tiana at 2029. Tele now shows SR, rates 70-80s. Echo shows EF 60-65%, normal atrial sizes, mild AR. EKG to check QTc, this am is still pending. Continue Amiodarone load with 400mg TID for total 1 week, then reduce dose to 400mg once daily for 1 week, then reduce to maintenance dose of 200mg daily. Will change Metoprolol to 25mg BID. CHADSVASc score of 1 -HTN. He has hx of bowel angiodysplasia, GIBs and chronic anemia. Hgb was 5.9 on admit and he was transfused 2 units. Hgb 7.9 today. No anticoagulation to be used on him due to high bleeding risk. Watchman device will be considered going forward. When in AFib his EKG did show signs of anterolateral ischemia. Troponins normal. We will sign off and arrange for outpt nuclear stress test and outpt holter monitor. (2) Pneumonia: Status: Acute Assessment and Plan: Being managed by hospitalist. Clinically reports improvement. (3) Acute on chronic blood loss anemia: Status: Acute Assessment and Plan: No active bleeding reported at present. (4) Hypertension, essential: Status: Acute Assessment and Plan: Running on lower side. Will be changing Metoprolol as above. Can continue Losartan. Fall Risk Details Current Medications: Current Medications Generic Name Dose Route Start Last Admin Trade Name Freq PRN Reason Stop Dose Admin Acetaminophen 650 mg 01/08/21 15:58 01/09/21 13:47 Acetaminophen 325 Mg Tablet PO 650 mg Q6H PRN Administration Pain, Mild (Pain Scale 1-3) Al Hydroxide/Mg Hydroxide 30 ml 01/08/21 15:58 Magnesium Hydrox/Alum Hydrox 30 Ml Oral.Susp PO Q4H PRN Heartburn/Nausea Albuterol Sulfate 2.5 mg 01/08/21 15:58 Albuterol Sulfate (0.083%) 2.5 Mg/3 Ml Vial.Neb INHALE Q3H PRN Shortness of Breath/Wheezing Albuterol/Ipratropium 3 ml 01/08/21 20:00 01/12/21 07:06 Albuterol/Iprat 2.5/0.5mg 3 Ml Ampul.Neb INHALE 3 ml RQ6H WHILE AWAKE [facility] Administration Amiodarone HCl 400 mg 01/11/21 12:00 01/12/21 08:41 Amiodarone Hcl 200 Mg Tablet PO 400 mg TID [facility] Administration Benzonatate 100 mg 01/10/21 09:00 01/12/21 08:41 Benzonatate 100 Mg Capsule PO 100 mg TID [facility] Administration Ferrous Sulfate 324 mg 01/08/21 17:00 01/12/21 08:41 Ferrous Sulfate 324 Mg Tablet. PO 324 mg BIDWM [facility] Administration Ceftriaxone Sodium 1 gm/ 50 mls @ 100 mls/hr 01/09/21 14:00 01/11/21 16:55 Sodium Chloride IV Infused Q24H [facility] Infusion Azithromycin 500 mg/ Sodium 250 mls @ 125 mls/hr 01/08/21 18:00 01/11/21 22: 04 Chloride IV Infused Q24H [facility] In[facility] Losartan Potassium 25 mg 01/09/21 09:00 01/12/21 08:41 Losartan Potassium 25 Mg Tablet PO 25 mg DAILY [facility] Administration Protocol Metoprolol Tartrate 12.5 mg 01/11/21 13:00 01/12/21 08:41 Metoprolol Tartrate 12.5 Mg Halftab PO 12.5 mg QID [facility] Administration Protocol Omeprazole 20 mg 01/08/21 16:30 01/12/21 05:54 Omeprazole 20 Mg Capsule. PO 20 mg BID@0630,1630 [facility] Administration Ondansetron HCl 4 mg 01/08/21 15:58 Ondansetron Hcl 4 Mg/2 Ml Vial IVPUSH Q8H PRN Nausea and Vomiting Pharmacy Consult 1 each 01/08/21 15:12 Consult Rx Perform Med Rec MISCELLANE ONCE PRN Consult order Sodium Chloride 3 ml 01/08/21 16:00 01/12/21 08:42 0.9 % Sodium Chloride Flush 3 Ml Syringe IVFLUSH 3 ml QSHIFT [facility] Administration Time Spent With Patient Time: Total time spent is greater than 50% in coordination of care (as documented) at patient's floor/unit and/or counseling patient: Time with patient: 15 - 24 minutes Progress Note: Quality Stroke Does the patient have a stroke diagnosis?: No Procedures Date of Service Date of Service: 01/12/21
--- NOTE | 2021-01-12 13:31 | HO.PM.IMPN ---
Subjective Subjective Date of Service: 01/12/21 Interval History: no complaints Cardiovascular Cardiovascular: Reports no additional cardiovascular complaints Respiratory Respiratory: Reports no additional respiratory complaints Physical Exam Vital Signs: Vital Signs: Last Vital Signs Temp 98.6 F 01/12/21 11:16 Pulse 73 01/12/21 11:16 Resp 18 01/12/21 11:16 BP 123/59 L 01/12/21 11:16 Pulse Ox 95 01/12/21 11:16 Body Mass Index 34.4 General: AO X 3, no acute distress Resp: CTA bilateral CVS: S1,S2,RRR GI: soft, non tender, non distended Neuro: motor grossly intact Psych: appropriate affect Objective Data Current Medications Generic Name Dose Route Start Last Admin Trade Name Freq PRN Reason Stop Dose Admin Acetaminophen 650 mg 01/08/21 15:58 01/09/21 13:47 Acetaminophen 325 Mg Tablet PO 650 mg Q6H PRN Administration Pain, Mild (Pain Scale 1-3) Al Hydroxide/Mg Hydroxide 30 ml 01/08/21 15:58 Magnesium Hydrox/Alum Hydrox 30 Ml Oral.Susp PO Q4H PRN Heartburn/Nausea Albuterol Sulfate 2.5 mg 01/08/21 15:58 Albuterol Sulfate (0.083%) 2.5 Mg/3 Ml Vial.Neb INHALE Q3H PRN Shortness of Breath/Wheezing Albuterol/Ipratropium 3 ml 01/08/21 20:00 01/12/21 13:07 Albuterol/Iprat 2.5/0.5mg 3 Ml Ampul.Neb INHALE 3 ml RQ6H WHILE AWAKE [facility] Administration Amiodarone HCl 400 mg 01/11/21 12:00 01/12/21 08:41 Amiodarone Hcl 200 Mg Tablet PO 400 mg TID [facility] Administration Benzonatate 100 mg 01/10/21 09:00 01/12/21 08:41 Benzonatate 100 Mg Capsule PO 100 mg TID [facility] Administration Doxycycline Hyclate 100 mg 01/12/21 12:45 01/12/21 13:23 Doxycycline Hyclate 100 Mg Tablet PO 100 mg BID [facility] Administration Ferrous Sulfate 324 mg 01/08/21 17:00 01/12/21 08:41 Ferrous Sulfate 324 Mg Tablet. PO 324 mg BIDWM [facility] Administration Ceftriaxone Sodium 1 gm/ 50 mls @ 100 mls/hr 01/09/21 14:00 01/11/21 16:55 Sodium Chloride IV Infused Q24H [facility] Infusion Losartan Potassium 25 mg 01/09/21 09:00 01/12/21 08:41 Losartan Potassium 25 Mg Tablet PO 25 mg DAILY [facility] Administration Protocol Metoprolol Tartrate 25 mg 01/12/21 21:00 Metoprolol Tartrate 25 Mg Tablet PO BID [facility] Protocol Omeprazole 20 mg 01/08/21 16:30 01/12/21 05:54 Omeprazole 20 Mg Capsule. PO 20 mg BID@0630,6540 [facility] Administration Pharmacy Consult 1 each 01/08/21 15:12 Consult Rx Perform Med Rec MISCELLANE ONCE PRN Consult order Sodium Chloride 3 ml 01/08/21 16:00 01/12/21 08:42 0.9 % Sodium Chloride Flush 3 Ml Syringe IVFLUSH 3 ml QSHIFT [facility] Administration Labs CBC & Chem 7: 01/12/21 05:06 01/12/21 05:06 Labs: Laboratory Results - last 24 hr 01/08/21 01/12/21 01/12/21 13:40 05:06 05:06 WBC 6.3 RBC 3.16 L Hgb 7.9 L Hct 26.7 L MCV 84.5 MCH 25.0 L MCHC 29.6 L RDW 16.9 H Plt Count 299 MPV 9.9 Absolute Nucleated RBC 0.020 H Nucleated RBC % (auto) 0.3 H Sodium 141 Potassium 4.5 Chloride 107 Carbon Dioxide 26 Anion Gap 13 BUN 12 Creatinine 0.90 Estim Creat Clear Calc 108.3 Estimated GFR > 60 Random Glucose 96 Calcium 7.9 L Crossmatch See Detail Quality Stroke Does the patient have a stroke diagnosis?: No VTE Prior VTE?: No VTE Risk Level:: Medical - moderate - high VTE Device Contraindication: N/A - Device Ordered VTE Drug Contraindication: Treatment Not Indicated Assessment and Plan (1) Atrial fibrillation with rapid ventricular response: Status: Acute (2) Symptomatic anemia: Status: Deleted Assessment and Plan: day-3 60 years old male with PMH of AVM small-bowel, COPD, HTN, GERD among others who presents to the hospital with shortness of breath, cough and weakness for the 3 days. afib continue amio loading and lopressor now in sinus monitor not on AC due to gi bleed Sepsis Secondary to pneumonia improving CTA showing consolidation Blood culture pending Continue ceftriaxone change azithro to doxy due to qtc follow up CT chest in 3 weeks Symptomatic anemia Secondary to acute on chronic blood-loss anemia stable around 7.5-8 From chronic AVM blood loss COPD stable DVT PPX SCDs
[2021-01-12] MEDS: cefTRIAXone sodium 1 GM in 0.9 % Sodium Chloride 50 ML IV (14:08)
[2021-01-12] MEDS: Metoprolol Tartrate 25 MG TABLET PO (21:45)
[2021-01-13] VITALS (7 sets, daily range): BP systolic 128–137; BP diastolic 58–74; PULSE 69–72; RESP 16–20; TEMP 36.7–37.1; O2SAT 93–97
[2021-01-13] MEDS: Omeprazole 20 MG CAPSULE.DR PO (05:42)
[2021-01-13 06:56] LABS: Hematocrit 26.5 % (42-52); Hemoglobin 7.9 g/dl (14.0-18.0); Mean Corpuscular HGB Conc 29.8 g/dl (31.0-36.0); Mean Corpuscular Hemoglobin 24.8 pg (27.0-33.0); Mean Corpuscular Volume 83.3 fL (80-98); Mean Platelet Volume 9.9 fL (9.4-12.4); Platelet Count 333 X10*3/uL (160-400); Red Blood Count 3.18 X10*6/uL (4.60-5.80); Red Cell Distribution Width 17.1 % (11.0-16.0)
--- NOTE | 2021-01-13 07:00 | ECG_ITS ---
Test Reason : SOB Blood Pressure : / mmHG Vent. Rate : 071 BPM Atrial Rate : 071 BPM P-R Int : 190 ms QRS Dur : 108 ms QT Int : 444 ms P-R-T Axes : 042 005 020 degrees QTc Int : 482 ms Normal sinus rhythm Prolonged QT Abnormal ECG When compared with ECG of 12-JAN-2021 11:46, No significant change was found Referred By: Priya Harrison Electronically Signed By:ARIANA MONTERROSO MD
[2021-01-13 07:15] LABS: Anion Gap 12 (12-20); Blood Urea Nitrogen 11 mg/dL (9-16); Carbon Dioxide 26 mmol/L (22-29); Chloride 107 mmol/L (96-108); Creatinine Clr Calc Pharmacy 104.8; Estimated Glomerular Filt Rate > 60; Glucose Fasting 96 mg/dL (60-99); Potassium 4.1 mmol/L (3.3-5.1); Sodium 141 mmol/L (135-145)
[2021-01-13] MEDS: Albuterol/Iprat 2.5/0.5MG 3 ML AMPUL.NEB INHALE (08:07)
[2021-01-13] MEDS: Losartan Potassium 25 MG TABLET PO (08:10)
[2021-01-13] MEDS: Amiodarone HCL 200 MG TABLET 400 MG PO (08:10)
[2021-01-13] MEDS: Benzonatate 100 MG CAPSULE PO (08:11)
[2021-01-13] MEDS: 0.9 % Sodium Chloride Flush 3 ML SYRINGE IVFLUSH (08:11)
[2021-01-13] MEDS: Ferrous Sulfate 324 MG TABLET.DR PO (08:11)
[2021-01-13] MEDS: Metoprolol Tartrate 25 MG TABLET PO (08:11)
--- NOTE | 2021-01-13 11:11 | PM.DS ---
DS: Providers Provider Date of Service: 01/13/21 Date of admission: 01/08/21 16:54 Primary care physician: Salvador Sandoval MD Consults: 01/09/21 13:08 Consult to Gastroenterology Routine Consulting Provider: Noble Chirinos Reason for consultation: acute on chronic anemia, Hx AVM 01/10/21 08:35 Consult to Cardiology Routine Consulting Provider: Maxim Gutierrez Reason for consultation: New onset Afib DS: Diagnosis Discharge Diagnosis (1) Atrial fibrillation with rapid ventricular response: Status: Acute (2) Symptomatic anemia: Status: Deleted DS: Medications Discharge Medications Home Medications: Home Medications Medication Instructions Recorded Confirmed ascorbic acid (vitamin C) [Vitamin 500 mg PO DAILY 07/02/20 01/08/21 C] ferrous sulfate [Iron (ferrous 325 mg PO BID 07/02/20 01/08/21 sulfate)] Previous Rx's Medication Instructions Recorded fluticasone 250 mcg-salmeterol 50 1 ea INHALATION BID #180 cap 06/07/20 mcg/dose blistr powdr for inhalation tiotropium bromide 2.5 2 puff PO DAILY #12 ml 06/07/20 mcg/actuation mist for inhalation losartan 50 mg tablet 50 mg PO DAILY 90 Days #90 tab 12/31/20 amiodarone 400 mg PO TID #60 tab 01/13/21 cefuroxime axetil 500 mg PO BID #14 tab 01/13/21 doxycycline hyclate 100 mg PO BID #14 tab 01/13/21 metoprolol tartrate 25 mg PO BID #60 tab 01/13/21 omeprazole 20 mg PO BID@0630,1630 #60 cap 01/13/21 DS: Summary Hospital Course Hospital Course: patient was admitted for sepsis due to pneumonia. he was given ceftriaxone and azithromycin, sepsis resolved, he will be discharged on 7 more days ceftin and doxy, he should get repeat ct chest in about 2-3 weeks to confirm clearance and rule out underlying lesion as CT showed RUL masslike lesion pneuomnia vs malignancy. patient was also treated for afib with rvr, he was given amiodarone and converted to NSR. no AC due to gi bleed. he will continue amio load 40mmg tid for 5 more days then 200mg daily maintance. he will also start on lopressor 25mg bid. patient was noted to be anemic hgb 5.9, with positive stool occult blood, he was seen by GI, likely AVMs, NSAIDS were stopped, transfused and hgb improved to 7.9 appropriatley. he will contineu on increased dose ppi and iron. Time Spent with Patient Time attestation: Total time spent providing and/or coordinating discharge services: Discharge coordination time: Greater than 30 minutes Quality: Stroke Does the patient have a stroke diagnosis?: No Physical Exam Vital Signs: Vital Signs: Last Vital Signs Temp 98.6 F 01/13/21 07:09 Pulse 72 01/13/21 08:11 Resp 18 01/13/21 07:09 BP 128/74 01/13/21 08:11 Pulse Ox 94 01/13/21 07:09 Body Mass Index 34.4 General: AO X 3, no acute distress Resp: CTA bilateral CVS: S1,S2,RRR GI: soft, non tender, non distended Neuro: motor grossly intact Psych: appropriate affect DS: Data Data Completed and Pending Labs on day of discharge: Laboratory Results - last 24 hr 01/13/21 01/13/21 05:14 05:14 WBC 7.0 RBC 3.18 L Hgb 7.9 L Hct 26.5 L MCV 83.3 MCH 24.8 L MCHC 29.8 L RDW 17.1 H Plt Count 333 MPV 9.9 Absolute Nucleated RBC 0.000 Nucleated RBC % (auto) 0.0 Sodium 141 Potassium 4.1 Chloride 107 Carbon Dioxide 26 Anion Gap 12 BUN 11 Creatinine 0.93 Estim Creat Clear Calc 104.8 Estimated GFR > 60 Fasting Glucose 96 Calcium 8.0 L Preliminary micro results at discharge 01/08/21 13:45 Blood Culture - Preliminary Blood - Venous No growth after 48 hours. 01/08/21 13:41 Blood Culture - Preliminary Blood - Venous No growth after 48 hours. Discharge Plan Discharge Patient Disposition: Home, Self-Care Discharge Diagnosis: afib Referrals: Salvador Sandoval MD [Primary Care Provider] - 1 Week Discharge Medications: New amiodarone 200 mg Tablet 400 mg PO TID Qty: 60 RF: 0 doxycycline hyclate 100 mg Tablet 100 mg PO BID Qty: 14 RF: 0 metoprolol tartrate 25 mg Tablet 25 mg PO BID Qty: 60 RF: 0 omeprazole 20 mg Capsule,Delayed Release(Dr/Ec) 20 mg PO BID@0630,1630 Qty: 60 RF: 0 cefuroxime axetil 500 mg tablet 500 mg PO BID Qty: 14 RF: 0 Continued fluticasone propion-salmeterol [Advair Diskus] 250-50 mcg/dose blister with device 1 ea inhalation BID Qty: 180 RF: 3 tiotropium bromide [Spiriva Respimat] 2.5 mcg/actuation mist 2 puff PO DAILY Qty: 12 RF: 3 ascorbic acid (vitamin C) [Vitamin C] 1,000 mg Tablet 500 mg PO DAILY RF: 0 ferrous sulfate [Iron (ferrous sulfate)] 325 mg (65 mg iron) Tablet 325 mg PO BID RF: 0 albuterol sulfate 2.5 mg /3 mL (0.083 %) solution for nebulization 2.5 mg continuous nebulization ONCE Qty: 3 RF: 0 losartan 50 mg tablet 50 mg PO DAILY 90 Days Qty: 90 RF: 0 Discontinued omeprazole 20 mg capsule,delayed release(DR/EC) 20 mg PO DAILY Qty: 90 RF: 0 indomethacin 50 mg capsule 50 mg PO BID PRN (Reason: foot pain) 30 Days Qty: 60 RF: 0 naproxen 500 mg tablet 500 mg PO BID 30 Days Qty: 60 RF: 3 Discharge Orders: Discharge Order (Routine); Ordered 01/13/21 Ordered By: Hieu Cueto Diet: advance to usual diet Activity on Discharge: As tolerated Stand Alone Forms: Patient Portal Discharge page Other Ambulatory Orders: CT chest wo con (Routine) Timeframe: 2 Weeks Facility: [facility] - Location: CT Scan Ordered By: Hieu Cueto Care Plan Goals: [facility] Health Concerns: afib, gi bleed, pneumonia Plan of Treatment: antibiotics, medications as directed, CT chest in 2 weeks, follow up cardio, gi Assessment: see above
--- NOTE | 2021-01-13 11:14 | MHC.CM.PN ---
PT CLEARED TO DC HOME TODAY WITH NO SERVICES. PT TO SELF ARRANGE TRANSPORTATION
== END 2021-01-13 12:25 | disposition home or self-care (01) | DRG 720 ==
LOC: HO.ED 13:33 → HO.EDOVER 16:55 → HO.IMC 18:45
PROVIDERS: Internal Medicine; Admitting Provider Student in an Organized Health Care Education/Training Program; Emergency Provider Emergency Medicine; PCP Internal Medicine; Visit Provider Internal Medicine
DX: A41.9 Sepsis, unspecified organism (principal); K55.21 Angiodysplasia of colon with hemorrhage; J18.9 Pneumonia, unspecified organism; J44.0 Chronic obstructive pulmonary disease with (acute) lower respiratory infection; D62 Acute posthemorrhagic anemia; J20.9 Acute bronchitis, unspecified; J44.1 Chronic obstructive pulmonary disease with (acute) exacerbation; I48.0 Paroxysmal atrial fibrillation; I10 Essential (primary) hypertension; K21.9 Gastro-esophageal reflux disease without esophagitis; Z20.822 Contact with and (suspected) exposure to COVID-19; Z87.891 Personal history of nicotine dependence; Z79.51 Long term (current) use of inhaled steroids; Z79.899 Other long term (current) drug therapy
CPT/HCPCS: 36415; 71045; 71275; 80048; 80076; 83540; 83605; 83735; 83880; 84484; 85025; 85027; 85379; 85610; 86850; 86900; 86901; 86923; 87040; 87635; 93005; 93306; 94640; 99285; J0282; J0456; J0696; J2930; J3475; P9016; Q9967

== ENCOUNTER 2021-01-19 09:03 | Outpatient (REF) | payer BC, SELFPAY ==
[2021-01-19 11:12] LABS: MANUAL DIFF FLAG NO
[2021-01-19 11:24] LABS: Basophils Absolute Auto 0.1 X10*3/uL (0.0-0.2); Basophils Percent Auto 1.1 % (0-2); Eosinophils Absolute Auto 0.2 X10*3/uL (0.0-0.4); Eosinophils Percent Auto 2.6 % (0-4); Hematocrit 33.9 % (42-52); Hemoglobin 9.6 g/dl (14.0-18.0); Imm Gran Abs Auto 0.11 X10*3/uL (0.00-0.03); Imm Gran Pct Auto 1.2 % (0.0-0.4); Lymphocytes Absolute Auto 1.4 X10*3/uL (1.2-4.9); Lymphocytes Percent Auto 16.2 % (20-40); Mean Corpuscular HGB Conc 28.3 g/dl (31.0-36.0); Mean Corpuscular Hemoglobin 23.9 pg (27.0-33.0); Mean Corpuscular Volume 84.5 fL (80-98); Mean Platelet Volume 9.7 fL (9.4-12.4); Monocytes Absolute Auto 0.7 X10*3/uL (0.1-1.2); Monocytes Percent Auto 7.4 % (2-11); Neutrophils Absolute Auto 6.3 X10*3/uL (2.0-8.3); Neutrophils Percent Auto 71.5 % (45-73); Platelet Count 524 X10*3/uL (160-400); Red Blood Count 4.01 X10*6/uL (4.60-5.80); Red Cell Distribution Width 17.3 % (11.0-16.0); White Blood Count 8.9 X10*3/uL (4.8-10.8)
[2021-01-19 11:51] LABS: Alanine Aminotransferase 29 U/L (0-40); Albumin Level 3.9 g/dL (3.5-5.0); Alkaline Phosphatase 85 U/L (39-117); Anion Gap 12 (12-20); Aspartate Amino Transferase 18 U/L (5-37); Bilirubin Total 0.8 mg/dL (0.0-1.0); Blood Urea Nitrogen 15 mg/dL (9-16); Calcium 9.2 mg/dL (8.4-10.2); Carbon Dioxide 28 mmol/L (22-29); Chloride 106 mmol/L (96-108); Estimated Glomerular Filt Rate > 60; Glucose Random 78 mg/dL (60-115); Potassium 5.3 mmol/L (3.3-5.1); Sodium 141 mmol/L (135-145); Total Protein 6.5 g/dL (6.5-8.0)
== END 2021-01-19 09:04 | disposition home or self-care (01) ==
LOC: HO.HMGCLDS 09:03
PROVIDERS: PCP Internal Medicine; Visit Provider Internal Medicine
DX: E66.09 Other obesity due to excess calories (principal); I10 Essential (primary) hypertension; J44.9 Chronic obstructive pulmonary disease, unspecified; K21.9 Gastro-esophageal reflux disease without esophagitis; M10.9 Gout, unspecified; D64.9 Anemia, unspecified; K92.2 Gastrointestinal hemorrhage, unspecified
CPT/HCPCS: 36415; 80053; 85025

== ENCOUNTER → 2021-01-20 08:40 | Outpatient (REF) | payer BC, SELFPAY ==
--- NOTE | 2021-01-20 10:22 | ECG_ITS ---
Hook-up date: 2021-01-20 09:09:00 Duration: 26:04:00 Test Indications: Unspecified Atrial Fibrillation Medications: 97046 QRS complexes 1 Ventricular ectopics which represent <1 % of total QRS comp. 17 Supraventricular ectopics which represent <1 % of total QRS comp. * Paced QRS complexs which represent % of total QRS comp. VENTRICULAR ECTOPY 1 Isolated 0 Bigeminal Cycles 0 Couplets 0 Runs 0 Beats in Runs * Beats LONGEST at * BPM at :: -- * Beats FASTEST at * BPM at :: -- SUPRAVENTRICULAR ECTOPY 9 Isolated 2 Couplets 1 Runs 4 Beats in Runs 4 Beats LONGEST at 107 BPM at 23:08:21 2021-01-20 4 Beats FASTEST at 107 BPM at 23:08:21 2021-01-20 HEART RATES 60 MIN at 01:59:59 2021-01-21 65 AVG 84 MAX at 16:37:54 2021-01-20 LONGEST RR 1.1440 secs at 00:42:42 2021-01-21 S-T LEVELS Channel 1 - 128 mm at 09:09:00 2021-01-20 - 128 mm at 09:09:00 2021-01-20 Channel 2 - 128 mm at 09:09:00 2021-01-20 - 128 mm at 09:09:00 2021-01-20 Channel 3 - 128 mm at 02:82:81 -- - 128 mm at 02:82:81 Underlying rhythm is sinus; Average ventricular rate 65/min; range 60-84/min; Very rare supraventricular ectopy; No sustained arrhythmias; Patient did not report any symptoms in the diary Referred By: Salvador Sandoval Overread By: EDIE CUNHA
== END ==
LOC: HO.CARD 08:40
PROVIDERS: PCP Internal Medicine; Referring Provider Internal Medicine; Visit Provider Nurse Practitioner Family
DX: I48.91 Unspecified atrial fibrillation (principal)
CPT/HCPCS: 93226

== ENCOUNTER → 2021-01-24 08:01 | Outpatient (REF) | payer BC, SELFPAY ==
--- NOTE | ~2021-01-24 | NM_ITS ---
Lexiscan Myocardial perfusion study Indication: Atrial fibrillation, abnormal EKG, assess for coronary disease and ischemia Technique: The patient was brought in for a Lexiscan perfusion study on 01/24/2021 and was injected 0.4 mg of Lexiscan intravenously. Within a minute of this injection 40 mCi of sestamibi was given intravenously. Images were obtained using the SPECT gamma camera interlaced with the gating device. Images were obtained in supine position. Resting perfusion study was performed on 01/25/2021. Patient was administered 40 mCi of sestamibi intravenously at rest. Images were then obtained in supine position. Total DLP 114mGy-cm. Images were processed with the software and compared side to side in short axis, horizontal long axis and vertical long axis views. Findings: Raw acquisition was reviewed. The stress perfusion study showed diminished tracer uptake along the inferior wall. With CT attenuation correction, there is improvement and hence suggestive of diaphragmatic attenuation artifact. The gated study shows normal LV systolic function with calculated LVEF of 65%. LV cavity is normal in size. The gated study shows normal wall thickening and contraction of segments. Resting study shows mildly diminished tracer uptake along the inferior wall; with CT attenuation correction, there is improvement and hence suggestive of diaphragmatic artifact. Gating at rest reveals normal wall motion with ejection fraction at 57%. The findings are consistent with no reversible or fixed perfusion abnormality. NM/NM barbara perf SPECT rest & str Impression: 1. Myocardial perfusion imaging study shows normal myocardial perfusion. No evidence of any ischemia or infarction. 2. Gated LVEF is 65% during stress and 57% during rest. 3. Transient ischemic dilatation not present. EKG component of the test reported separately.
--- NOTE | 2021-01-24 08:05 | CA_ITS ---
Acquisition Time: 2021-01-24 08:04:50 Total Exercise Time: 00:02:00 Test Indications: Abnormal ECG Medications: AMIODORONE METOPROLOL FLONASE OMEPRAZOLE LOSARTAN SPIRIVA ALBUTEROL DOXYCYCLINE Protocol: LEXISCAN Max HR: 093 BPM 58% of Pred: 158 BPM Max BP: 132/074 mmHG Max Work Load: 1.6 METS Pharmacological stress test with Lexiscan injection, while walking on treadmill, without anginal symptoms, without arrythmia, with normotensive response to injection, with nondiagnostic EKG for ischemia. Nuclear images pending. Test reviewed with Dr Stahl. Referred By: Priya Harrison Overread By: PRIYA HARRISON
== END ==
LOC: HO.CARD 08:01
PROVIDERS: Visit Provider Nurse Practitioner Family
DX: I48.91 Unspecified atrial fibrillation (principal); R06.02 Shortness of breath
CPT/HCPCS: 78452; 93017; A9500; J0280; J2785

== ENCOUNTER → 2021-02-15 14:20 | Outpatient (BNVA) | payer BC, SELFPAY | PROVIDERS: PCP Internal Medicine; Referring Provider Internal Medicine; Visit Provider Nurse Practitioner Family | DX: I48.91 Unspecified atrial fibrillation (principal); K92.2 Gastrointestinal hemorrhage, unspecified; D64.9 Anemia, unspecified | CPT/HCPCS: 93005 ==

== ENCOUNTER 2021-03-03 14:23 | Outpatient (REF) | payer BC, SELFPAY | END 2021-03-03 14:24 | disposition home or self-care (01) | LOC: HO.MDS 14:23 | PROVIDERS: PCP Internal Medicine; Visit Provider Internal Medicine | DX: D50.9 Iron deficiency anemia, unspecified (principal) | CPT/HCPCS: 96365; J1439 ==

== ENCOUNTER 2021-03-10 14:11 | Outpatient (REF) | payer BC, SELFPAY | END 2021-03-10 14:12 | disposition home or self-care (01) | LOC: HO.MDS 14:11 | PROVIDERS: PCP Internal Medicine; Visit Provider Internal Medicine | DX: D50.9 Iron deficiency anemia, unspecified (principal) | CPT/HCPCS: 96365; J1439 ==

== ENCOUNTER → 2021-05-23 14:31 | Outpatient (BNVA) | payer BC, SELFPAY | PROVIDERS: PCP Internal Medicine; Referring Provider Internal Medicine; Visit Provider Internal Medicine Cardiovascular Disease | DX: I48.0 Paroxysmal atrial fibrillation (principal); I10 Essential (primary) hypertension; D50.9 Iron deficiency anemia, unspecified; Z87.891 Personal history of nicotine dependence; Z79.01 Long term (current) use of anticoagulants | CPT/HCPCS: 93005 ==

== ENCOUNTER 2022-02-15 15:35 | Outpatient (REF) | payer BC, SELFPAY ==
[2022-02-15 15:44] LABS: MANUAL DIFF FLAG NO
[2022-02-15 16:02] LABS: Basophils Absolute Auto 0.1 X10*3/uL (0.0-0.2); Basophils Percent Auto 1.4 % (0-2); Eosinophils Absolute Auto 0.2 X10*3/uL (0.0-0.4); Hematocrit 30.2 % (42.0-52.0); Hemoglobin 9.2 g/dl (14.0-18.0); Imm Gran Abs Auto 0.03 X10*3/uL (0.00-0.03); Imm Gran Pct Auto 0.5 % (0.0-0.4); Lymphocytes Percent Auto 17.9 % (20-40); Mean Corpuscular HGB Conc 30.5 g/dl (31.0-36.0); Mean Corpuscular Hemoglobin 25.3 pg (27.0-33.0); Mean Platelet Volume 9.4 fL (9.4-12.4); Monocytes Absolute Auto 0.6 X10*3/uL (0.1-1.2); Monocytes Percent Auto 10.4 % (2-11); Neutrophils Absolute Auto 3.8 x10*3/uL (2.0-8.3); Neutrophils Percent Auto 66.8 % (45-73); Platelet Count 318 X10*3/uL (160-400); Red Blood Count 3.64 X10*6/uL (4.60-5.80); Red Cell Distribution Width 14.2 % (11.0-16.0); White Blood Count 5.7 X10*3/uL (4.8-10.8)
[2022-02-15 16:17] LABS: Alanine Aminotransferase 34 U/L (0-40); Albumin Level 3.9 g/dL (3.5-5.0); Alkaline Phosphatase 64 U/L (39-117); Anion Gap 15 (12-20); Aspartate Amino Transferase 28 U/L (5-37); Bilirubin Total 0.6 mg/dL (0.0-1.0); Blood Urea Nitrogen 18 mg/dL (9-16); Calcium 8.5 mg/dL (8.4-10.2); Carbon Dioxide 24 mmol/L (22-29); Chloride 104 mmol/L (96-108); Cholesterol 92 mg/dL; Estimated Glomerular Filt Rate > 60; Glucose Fasting 96 mg/dL (60-99); HDL Cholesterol 30 mg/dL; Iron 19 mcg/dL (45-160); LDL Cholesterol Calculated 49 mg/dl; Percent Iron Saturation 5 % (15-50); Potassium 4.2 mmol/L (3.3-5.1); Sodium 139 mmol/L (135-145); Total Iron Binding Capacity 351 mcg/dL (228-428); Total Protein 6.1 g/dL (6.5-8.0); Triglycerides 65 mg/dL; Unsaturated Iron Binding 332 ug/dL
[2022-02-15 16:26] LABS: Ferritin 25 ng/mL (20-250); TSH reflex Free T4 2.42 uIU/mL (0.32-4.0)
== END 2022-02-15 15:36 | disposition home or self-care (01) ==
LOC: HO.LAB 15:35
PROVIDERS: Visit Provider Internal Medicine
DX: Z00.01 Encounter for general adult medical examination with abnormal findings (principal); D50.9 Iron deficiency anemia, unspecified; J20.9 Acute bronchitis, unspecified; J44.0 Chronic obstructive pulmonary disease with (acute) lower respiratory infection; I10 Essential (primary) hypertension
CPT/HCPCS: 36415; 80053; 80061; 82728; 83540; 84443; 85025

== ENCOUNTER 2022-02-17 15:58 | Emergency (ER) | payer BC, SELFPAY ==
--- NOTE | ~2022-02-17 | XR_ITS ---
EXAMINATION: XR CHEST CLINICAL INFORMATION: Dyspnea COMPARISON: Chest x-ray 01/08/2021 TECHNIQUE: Frontal view of the chest was obtained. FINDINGS: The lungs are clear. No airspace consolidation, pleural effusion, or pneumothorax. The cardiomediastinal silhouette is within normal limits. No acute osseous injury. ACDF fixation projects over the lower cervical spine. Interlocking intramedullary nail in the left proximal humerus. XR/XR chest 1V IMPRESSION: No acute pulmonary process.
--- NOTE | ~2022-02-17 | CT_ITS ---
EXAMINATION: CT ANGIOGRAM OF THE CHEST WITH AND WITHOUT CONTRAST (CT PULMONARY ANGIOGRAM FOR PE) CLINICAL INFORMATION: Reason for Exam sob, tachycardia COMPARISON: 01/08/2021 TECHNIQUE: Prior to contrast administration, noncontrast localization images were obtained. Subsequently, multidetector volumetric imaging was performed from the thoracic inlet to below the diaphragms following the administration of 80 mL Omnipaque 350 intravenous contrast. No contrast reaction reported Sagittal, coronal, and MIP oblique sagittal reformatted images were obtained on the CT workstation, uploaded to PACS, and reviewed. This CT examination was performed using dose optimization techniques as appropriate, variously including the following: *Automated exposure control *Adjustment of mA and/or kV according to patient size (this includes techniques or standardized protocols for targeted exams where dose is matched to indication/reason for exam; i.e. extremities or head) *Use of iterative reconstruction technique Total exam dose-length product 488 mGy-cm FINDINGS: QUALITY OF STUDY/CONTRAST BOLUS: Satisfactory. PULMONARY ARTERIES: No central or segmental pulmonary emboli. THORACIC AORTA: No aneurysm or dissection. LUNG: There is mild to moderate upper lobe predominant emphysema. There is curvilinear opacity in the posterior right upper lobe, suggesting residual scarring at the site of prior consolidation on the prior exam. There is minimal ill-defined, somewhat nodular opacity in the posterior lower lobes. PLEURA: No pleural effusion or pneumothorax. MEDIASTINUM: Partially visualized thyroid gland is grossly unremarkable. Redemonstrated right hilar adenopathy, without significant change. Borderline enlarged mediastinal lymph nodes are also similar to prior. Cardiac size is within normal limits; no pericardial effusion. CHEST WALL/AXILLA: No axillary or internal mammary lymphadenopathy. OSSEOUS STRUCTURES: Degenerative changes are noted in the spine. UPPER ABDOMEN: Spleen is enlarged, measuring approximately 15.7 cm in the axial plane. No reflux of contrast into the hepatic veins to suggest elevated right heart pressures. CT/CT angio chest PE protocol IMPRESSION: 1. No pulmonary embolus identified. 2. Faint ill-defined, somewhat nodular opacity in the posterior lower lobes, which could reflect mild inflammatory change. Curvilinear opacity in the posterior right upper lobe suggests scarring at the site of prior pneumonia. Follow-up CT in approximately 3 months would be helpful to assess for resolution. 3. Similar appearance of right hilar and borderline mediastinal adenopathy compared to prior. 4. Upper lobe predominant emphysema. 5. Splenomegaly. VTE: negative
[2022-02-17 17:54] VITALS: BP 145/78; PULSE 72; RESP 22; TEMP 36.8; O2SAT 95; BMI 36.6
--- NOTE | 2022-02-17 17:56 | ECG_ITS ---
Test Reason : DYSPNEA Blood Pressure : / mmHG Vent. Rate : 078 BPM Atrial Rate : 078 BPM P-R Int : 154 ms QRS Dur : 144 ms QT Int : 420 ms P-R-T Axes : 010 000 012 degrees QTc Int : 478 ms Normal sinus rhythm Right bundle branch block Abnormal ECG When compared with ECG of 13-JAN-2021 07:21, Right bundle branch block is now Present Referred By: Generic ED Physician Electronically Signed By:CARIE OVERTON
[2022-02-17 18:14] LABS: Hematocrit 27.8 % (42.0-52.0); Hemoglobin 8.3 g/dl (14.0-18.0); Mean Corpuscular HGB Conc 29.9 g/dl (31.0-36.0); Mean Corpuscular Hemoglobin 25.1 pg (27.0-33.0); Mean Platelet Volume 9.4 fL (9.4-12.4); NRBC Pct Auto 0.2 /100WBC (0.0-0.2); Platelet Count 330 X10*3/uL (160-400); Red Blood Count 3.31 X10*6/uL (4.60-5.80); Red Cell Distribution Width 15.3 % (11.0-16.0); White Blood Count 8.5 X10*3/uL (4.8-10.8)
[2022-02-17 18:27] LABS: Anion Gap 16 (12-20); Blood Urea Nitrogen 17 mg/dL (9-16); Calcium 8.3 mg/dL (8.4-10.2); Carbon Dioxide 24 mmol/L (22-29); Chloride 109 mmol/L (96-108); Creatinine Clr Calc Pharmacy 105.8; Estimated Glomerular Filt Rate > 60; Glucose Random 102 mg/dL (60-115); Potassium 4.5 mmol/L (3.3-5.1); Sodium 144 mmol/L (135-145)
[2022-02-17 18:30] LABS: COVID-19 Test Negative (Negative)
[2022-02-17 18:33] LABS: B Type Natriuretic Peptide 71 pg/mL (<100); Troponin-I High Sensitivity 5.9 ng/L (<3.5-35.0)
--- NOTE | 2022-02-17 21:45 | ED.SOB ---
HPI - SOB/Dyspnea General Chief Complaint: Dyspnea Stated Complaint: breathing issues Time Seen by Provider: 02/18/22 00:07 Source: patient Mode of arrival: ambulatory Limitations: no limitations History of Present Illness HPI Narrative: 61-year-old male presents for intermittent cough, shortness of breath, fevers, and anemia. He was referred to the emergency department by Dr. Gonzalez for further workup. Patient states that he feels his heart rate is higher than normal, at rest it is in the 70s when usually in the 60s, and his heart rate elevates to the 130s 140s at rest. Patient does not report any sick contacts, states that he has not been bitten by a tick but he does spend a lot of time outdoors and has a dog. He does not report chest pain, abdominal pain, abdominal distention, dysuria, hematuria, melena hematochezia diaphoresis or changes in vision MD elicited complaint: shortness of breath Onset (ago): week(s) Timing: intermittent Severity: moderate Exacerbating factors: exertion and coughing Relieving factors: rest Associated symptoms: fever, cough and palpitations Treatment prior to arrival: none Related Data Home Medications Medication Instructions Recorded Confirmed ascorbic acid (vitamin C) 1,000 mg 500 mg PO DAILY 07/02/20 12/20/21 tablet (Vitamin C) Previous Rx's Medication Instructions Recorded fluticasone 250 mcg-salmeterol 50 1 ea inhalation BID #180 caps 05/25/21 mcg/dose blistr powdr for inhalation (Advair Diskus) tiotropium bromide 2.5 2 puff PO DAILY #12 mL 06/27/21 mcg/actuation mist for inhalation (Spiriva Respimat) albuterol sulfate 90 mcg/actuation 1 inh inhalation QID PRN shortness 09/27/21 aerosol inhaler (ProAir HFA) of breath or wheezing 30 days #18 grams metoprolol succinate 50 mg 50 mg PO DAILY #90 tabs 11/10/21 tablet,extended release 24 hr omeprazole 20 mg capsule,delayed 20 mg PO BID@0630,1630 #60 caps 01/27/22 release ferrous sulfate 325 mg (65 mg 325 mg PO BID 9 days #180 tabs 02/01/22 iron) tablet (Iron (ferrous sulfate)) losartan 25 mg tablet 25 mg PO DAILY #90 tabs 02/06/22 cefuroxime axetil 500 mg tablet 500 mg PO Q12H 7 days #14 tabs 02/18/22 doxycycline monohydrate 100 mg 100 mg PO BID #14 caps 02/18/22 capsule Allergies Allergy/AdvReac Type Severity Reaction Status Date / Time adhesive tape Allergy Unknown RASH Verified 12/20/21 15:20 Review of Systems Review of Systems: Constitutional: Positive Fever, No Chills ENT/Mouth: No Ear Pain, No Hoarseness, No sore throat Eyes: No Eye Pain, No Swelling, No Redness, No Foreign Body Cardiovascular: No Chest Pain, positive SOB, positive palpitations Respiratory: Positive Cough, No Dyspnea Gastrointestinal: No Nausea, No Vomiting, No Diarrhea, No abdominal Pain Genitourinary: No Dysuria, No Hematuria Musculoskeletal: No joint pain, No Myalgias, No Joint Swelling Skin: No Skin lacerations, No rash Neuro: No Weakness, No Numbness, No Paresthesias, No Loss of Consciousness, No Dizziness, No Headache Psych: No Anxiety/Panic, No Depression Heme/Lymph: no easy bruising, no Lymphadenopathy Endocrine: No Polyuria, No Polydipsia Yes all other systems are reviewed and are negative [facility] Past Medical History Attestation statement: The following information was validated with the patient. Source: old records reviewed Medical History Atrial fibrillation with rapid ventricular response COPD (chronic obstructive pulmonary disease) with acute bronchitis GERD (gastroesophageal reflux disease) HTN (hypertension) Iron deficiency anemia Paroxysmal atrial fibrillation Surgical History H/O umbilical hernia repair Family History Family History Father Liver cancer Diabetes mellitus Mother Emphysema, unspecified CVD (cardiovascular disease) Maternal Grandmother No problems noted. Maternal Grandfather No problems noted. Paternal Grandfather No problems noted. Paternal Grandmother No problems noted. Sister No problems noted. 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 Oriented X3. No acute distress. Appears fatigued and pale Eyes: Pupils equal, round and reactive to light. EOMI. No nystagmus. Sclerae nonicteric. ENT: Pharynx normal. Neck: Normal inspection. Neck supple. No cervical lymphadenopathy noted. CVS: Normal heart rate and rhythm. Pulses normal. Respiratory: No respiratory distress. Breath sounds normal. Abdomen: Soft and nontender. Skin: Skin warm and dry. Normal skin color. Normal skin turgor. Extremities: No lower extremity edema. Moves all extremities resistance Neuro: No motor deficit. No sensory deficit. Cranial nerves 2-12 Course Course Course Narrative: 61-year-old male presents for shortness breath, cough, intermittent fevers, and anemia. He is an established patient with Dr. Gonzalez, and was referred to the emergency department per her recommendation. He has a history paroxysmal AFib on metoprolol, anemia, history of GI bleed, COPD, and requires IV iron supplementation. Labs were drawn while patient was in the emergency department waiting room, H&H 8.3/27.8 which is consistent with his baseline, however it has not been that low since 05/17/2021. He is not reporting any beatriz bleeding, and is heart rate is well controlled first troponin is 5.9, will add 2nd trope, LDH, Lyme, CRP, ESR and order CT PE study. 23:46 ESR 37, CRP 3.47, Lyme is pending. CT PE study is pending. 00:56 CT scan indicates findings consistent with pneumonia, splenomegaly, upper lobe emphysema, and right hilar and borderline mediastinal adenopathy consistent with prior exams. After discussion with Dr. Arzate, plan is for doxycycline and cefuroxime cover for respiratory as well as suspected Lyme. I did discuss in detail doxycycline photosensitivity precautions, as well as my high suspicion for Lyme. Patient does understand that he must follow up with Dr. Gonzalez, and that we will call him with his Lyme tests results. Patient verbalized understanding of and agrees to plan of care discharge home. Verbalized understanding of signs and symptoms indicating need for emergent intervention. MDM - SOB/Dyspnea Differential Diagnosis Differential diagnosis: Likely acute exacerbation of chronic obstructive airways disease, pneumonia and pulmonary embolism Medical Records Attestation: I reviewed the patient's medical records. Lab Data Attestation: I reviewed the patient's lab results. Result diagrams: 02/17/22 18:08 02/17/22 18:08 Labs: Lab Results 02/17/22 02/17/22 02/17/22 Range/Units 18:08 18:08 18:08 WBC 8.5 (4.8-10.8) X10*3/uL RBC 3.31 L (4.60-5.80) X10*6/uL Hgb 8.3 L (14.0-18.0) g/dl Hct 27.8 L (42.0-52.0) % MCV 84.0 (80.0-98.0) fL MCH 25.1 L (27.0-33.0) pg MCHC 29.9 L (31.0-36.0) g/dl RDW 15.3 (11.0-16.0) % Plt Count 330 (160-400) X10*3/uL MPV 9.4 (9.4-12.4) fL Absolute Nucleated RBC 0.020 H (0.0-0.012) X10*3/uL Nucleated RBC % (auto) 0.2 (0.0-0.2) /100WBC ESR (0-15) MM/HR Sodium 144 (135-145) mmol/L Potassium 4.5 (3.3-5.1) mmol/L Chloride 109 H (96-108) mmol/L Carbon Dioxide 24 (22-29) mmol/L Anion Gap 16 (12-20) BUN 17 H (9-16) mg/dL Creatinine 0.91 (0.5-1.4) mg/dL Estim Creat Clear Calc 105.8 Estimated GFR > 60 Random Glucose 102 (60-115) mg/dL Calcium 8.3 L (8.4-10.2) mg/dL Lactate Dehydrogenase (118-273) U/L Troponin I High Sens (<3.5-35.0) ng/L C-Reactive Protein (< or = 0.50) mg/dL B-Natriuretic Peptide 71 (<100) pg/mL COVID-19 (JUDD) (Negative) COVID-19 Clin Com 02/17/22 02/17/22 02/17/22 Range/Units 18:08 18:08 18:08 WBC (4.8-10.8) X10*3/uL RBC (4.60-5.80) X10*6/uL Hgb (14.0-18.0) g/dl Hct (42.0-52.0) % MCV (80.0-98.0) fL MCH (27.0-33.0) pg MCHC (31.0-36.0) g/dl RDW (11.0-16.0) % Plt Count (160-400) X10*3/uL MPV (9.4-12.4) fL Absolute Nucleated RBC (0.0-0.012) X10*3/uL Nucleated RBC % (auto) (0.0-0.2) /100WBC ESR 37 H (0-15) MM/HR Sodium (135-145) mmol/L Potassium (3.3-5.1) mmol/L Chloride (96-108) mmol/L Carbon Dioxide (22-29) mmol/L Anion Gap (12-20) BUN (9-16) mg/dL Creatinine (0.5-1.4) mg/dL Estim Creat Clear Calc Estimated GFR Random Glucose (60-115) mg/dL Calcium (8.4-10.2) mg/dL Lactate Dehydrogenase (118-273) U/L Troponin I High Sens 5.9 (<3.5-35.0) ng/L C-Reactive Protein (< or = 0.50) mg/dL B-Natriuretic Peptide (<100) pg/mL COVID-19 (JUDD) Negative (Negative) COVID-19 Clin Com See Note 02/17/22 02/17/22 Range/Units 22:47 22:47 WBC (4.8-10.8) X10*3/uL RBC (4.60-5.80) X10*6/uL Hgb (14.0-18.0) g/dl Hct (42.0-52.0) % MCV (80.0-98.0) fL MCH (27.0-33.0) pg MCHC (31.0-36.0) g/dl RDW (11.0-16.0) % Plt Count (160-400) X10*3/uL MPV (9.4-12.4) fL Absolute Nucleated RBC (0.0-0.012) X10*3/uL Nucleated RBC % (auto) (0.0-0.2) /100WBC ESR (0-15) MM/HR Sodium (135-145) mmol/L Potassium (3.3-5.1) mmol/L Chloride (96-108) mmol/L Carbon Dioxide (22-29) mmol/L Anion Gap (12-20) BUN (9-16) mg/dL Creatinine (0.5-1.4) mg/dL Estim Creat Clear Calc Estimated GFR Random Glucose (60-115) mg/dL Calcium (8.4-10.2) mg/dL Lactate Dehydrogenase 226 (118-273) U/L Troponin I High Sens 5.9 (<3.5-35.0) ng/L C-Reactive Protein 3.47 H (< or = 0.50) mg/dL B-Natriuretic Peptide (<100) pg/mL COVID-19 (JUDD) (Negative) COVID-19 Clin Com Imaging Data Chest x-ray: Attestation: I personally reviewed and interpreted this imaging study as follows: Radiologist's impression: EXAMINATION: XR CHEST CLINICAL INFORMATION: Dyspnea COMPARISON: Chest x-ray 01/08/2021 TECHNIQUE: Frontal view of the chest was obtained. FINDINGS: The lungs are clear. No airspace consolidation, pleural effusion, or pneumothorax. The cardiomediastinal silhouette is within normal limits. No acute osseous injury. ACDF fixation projects over the lower cervical spine. Interlocking intramedullary nail in the left proximal humerus. XR/XR chest 1V IMPRESSION: No acute pulmonary process. CT PE study: Attestation: I personally reviewed and interpreted this imaging study as follows: Radiologist's impression: EXAMINATION: CT ANGIOGRAM OF THE CHEST WITH AND WITHOUT CONTRAST (CT PULMONARY ANGIOGRAM FOR PE) CLINICAL INFORMATION: Reason for Exam sob, tachycardia COMPARISON: 01/08/2021? TECHNIQUE: Prior to contrast administration, noncontrast localization images were obtained. ? Subsequently, multidetector volumetric imaging was performed from the thoracic inlet to below the diaphragms following the administration of 80 mL Omnipaque 350 intravenous contrast. No contrast reaction reported Sagittal, coronal, and MIP oblique sagittal reformatted images were obtained on the CT workstation, uploaded to PACS, and reviewed. This CT examination was performed using dose optimization techniques as appropriate, variously including the following: *Automated exposure control *Adjustment of mA and/or kV according to patient size (this includes techniques or standardized protocols for targeted exams where dose is matched to indication/reason for exam; i.e. extremities or head) *Use of iterative reconstruction technique Total exam dose-length product 488 mGy-cm FINDINGS: QUALITY OF STUDY/CONTRAST BOLUS: Satisfactory. PULMONARY ARTERIES: No central or segmental pulmonary emboli.? THORACIC AORTA: No aneurysm or dissection. LUNG: There is mild to moderate upper lobe predominant emphysema. There is curvilinear opacity in the posterior right upper lobe, suggesting residual scarring at the site of prior consolidation on the prior exam. There is minimal ill-defined, somewhat nodular opacity in the posterior lower lobes. PLEURA: No pleural effusion or pneumothorax. MEDIASTINUM: Partially visualized thyroid gland is grossly unremarkable. Redemonstrated right hilar adenopathy, without significant change. Borderline enlarged mediastinal lymph nodes are also similar to prior. Cardiac size is within normal limits; no pericardial effusion. CHEST WALL/AXILLA: No axillary or internal mammary lymphadenopathy. OSSEOUS STRUCTURES: Degenerative changes are noted in the spine. ? UPPER ABDOMEN: Spleen is enlarged, measuring approximately 15.7 cm in the axial plane. No reflux of contrast into the hepatic veins to suggest elevated right heart pressures. CT/CT angio chest PE protocol IMPRESSION: 1.? No pulmonary embolus identified. 2.? Faint ill-defined, somewhat nodular opacity in the posterior lower lobes, which could reflect mild inflammatory change. Curvilinear opacity in the posterior right upper lobe suggests scarring at the site of prior pneumonia. Follow-up CT in approximately 3 months would be helpful to assess for resolution. 3.? Similar appearance of right hilar and borderline mediastinal adenopathy compared to prior. 4.? Upper lobe predominant emphysema. 5.? Splenomegaly. ? VTE: negative ECG Data Attestation: I personally reviewed and interpreted this ECG as follows: ECG interpretation date: 02/17/22 ECG interpretation time: 17:59 Prior ECG tracings: available for review Interpretation: Vent. rate 78 BPM UT interval 154 ms QRS duration 144 ms QT/QTc 420/478 ms P-R-T axes 10 0 12 Normal sinus rhythm Right bundle branch block Abnormal ECG When compared with ECG of 13-JAN-2021 07:21, Right bundle branch block is now Present Discharge Plan Discharge Clinical Impression: Pneumonia, Anemia, Splenomegaly Patient Disposition: Home, Self-Care Instructions: Anemia (ED), Pneumonia (ED) Additional Instructions: You were evaluated for intermittent fevers, cough, anemia and generalized feeling of unwellness. CT PE study was negative for blood clots, but it does show nodular opacity in the posterior lower lobes reflecting mild inflammatory changes could possibly be a prior pneumonia. We are treating with doxycycline and cefuroxime for this upper respiratory inflammatory changes. Your Lyme disease test is pending. The doxycycline that was prescribed to you for the upper respiratory infection will cover for Lyme. If your Lyme disease is positive, your medications may change depending on testing results. You must stop taking your omeprazole while taking cefuroxime. You may continue omeprazole 24 hours after finishing cefuroxime. Doxycycline has a significant photosensitive reaction. Please wear a hat, sunscreen and long sleeves while outside. Incidental findings on your CT scan shows right hilar and mediastinal lymph nodes that are enlarged, which is similar to your prior CT scan. The upper lobe of your lungs indicate emphysema, and your spleen is enlarged. Please follow-up with Dr. Gonzalez and primary care physician. Thank you for choosing this emergency department for evaluation. Return to the emergency department for any new, concerning, or worsening symptoms. Prescriptions: New doxycycline monohydrate 100 mg capsule 100 mg PO BID Qty: 14 0RF cefuroxime axetil 500 mg tablet 500 mg PO Q12H 7 Days Qty: 14 0RF Rx Instructions: Please add to instructions, do not take omeprazole while taking this medication. You may continue omeprazole 24 hours after finishing this course of antibiotics. No Action fluticasone propion-salmeterol [Advair Diskus] 250-50 mcg/dose blister with device 1 ea inhalation BID Qty: 180 3RF Spiriva Respimat 2.5 mcg/actuation mist 2 puff PO DAILY Qty: 12 3RF albuterol sulfate [ProAir HFA] 90 mcg/actuation HFA aerosol inhaler 1 inh inhalation QID PRN (Reason: shortness of breath or wheezing) 30 Days Qty: 18 4RF metoprolol succinate 50 mg tablet extended release 24 hr 50 mg PO DAILY Qty: 90 3RF omeprazole 20 mg capsule,delayed release(DR/EC) 20 mg PO BID@0630,1630 Qty: 60 2RF ferrous sulfate [Iron (ferrous sulfate)] 325 mg (65 mg iron) tablet 325 mg PO BID 9 Days Qty: 180 6RF losartan 25 mg tablet 25 mg PO DAILY Qty: 90 0RF ascorbic acid (vitamin C) [Vitamin C] 1,000 mg Tablet 500 mg PO DAILY Referrals: Patricia Gonzalez MD [Physician] - 1 week (Intermittent fevers, splenomegaly) Salvador Sandoval MD [Primary Care Provider] - 1 week
[2022-02-17 23:10] LABS: C Reactive Protein 3.47 mg/dL (< or = 0.50); Lactate Dehydrogenase 226 U/L (118-273)
[2022-02-17] MEDS: iohexoL 350 MG/ML 100 ML INFUS..BTL IV (23:19)
[2022-02-17 23:24] LABS: Troponin-I High Sensitivity 5.9 ng/L (<3.5-35.0)
[2022-02-17 23:32] LABS: Erythrocyte Sedimentation Rate 37 MM/HR (0-15)
[2022-02-17 23:34] VITALS: BP 150/99; PULSE 121; RESP 17; TEMP 37.1; O2SAT 98
[2022-02-20 13:22] LABS: Lyme Abs Screen <0.90 index
== END 2022-02-18 01:32 | disposition home or self-care (01) ==
PROVIDERS: Nurse Practitioner Family; Emergency Provider Emergency Medicine; PCP Internal Medicine
DX: J18.9 Pneumonia, unspecified organism (principal); D64.9 Anemia, unspecified; R06.02 Shortness of breath; R50.9 Fever, unspecified; R05.9 Cough, unspecified; Z20.822 Contact with and (suspected) exposure to COVID-19; Z79.899 Other long term (current) drug therapy; Z87.891 Personal history of nicotine dependence
CPT/HCPCS: 36415; 71045; 71275; 80048; 83615; 83880; 84484; 85027; 85652; 86140; 86617; 86618; 87635; 93005; 99284; Q9967

== ENCOUNTER 2022-03-13 13:51 | Outpatient (REF) | payer BC, SELFPAY | END 2022-03-13 13:52 | disposition home or self-care (01) | LOC: HO.MDS 13:51 | PROVIDERS: Visit Provider Internal Medicine | DX: D50.9 Iron deficiency anemia, unspecified (principal) | CPT/HCPCS: 96365; J1439 ==

== ENCOUNTER 2022-03-20 13:50 | Outpatient (REF) | payer BC, SELFPAY | END 2022-03-20 13:51 | disposition home or self-care (01) | LOC: HO.MDS 13:50 | PROVIDERS: Visit Provider Internal Medicine | DX: D50.9 Iron deficiency anemia, unspecified (principal) | CPT/HCPCS: 96365; J1439 ==

== ENCOUNTER 2022-05-22 14:19 | Outpatient (REF) | payer BC, SELFPAY ==
[2022-05-22 14:53] LABS: Alanine Aminotransferase 22 U/L (0-40); Albumin Level 4.6 g/dL (3.5-5.0); Alkaline Phosphatase 90 U/L (39-117); Anion Gap 13 (12-20); Aspartate Amino Transferase 26 U/L (5-37); Bilirubin Total 0.4 mg/dL (0.0-1.0); Blood Urea Nitrogen 15 mg/dL (9-16); Calcium 9.3 mg/dL (8.4-10.2); Carbon Dioxide 27 mmol/L (22-29); Chloride 106 mmol/L (96-108); Estimated Glomerular Filt Rate > 60; Glucose Random 87 mg/dL (60-115); Potassium 4.2 mmol/L (3.3-5.1); Sodium 142 mmol/L (135-145); Total Protein 6.8 g/dL (6.5-8.0)
== END 2022-05-22 14:20 | disposition home or self-care (01) ==
LOC: HO.LAB 14:19
PROVIDERS: PCP Internal Medicine; Visit Provider Internal Medicine
DX: I10 Essential (primary) hypertension (principal); J44.0 Chronic obstructive pulmonary disease with (acute) lower respiratory infection; J20.9 Acute bronchitis, unspecified; D64.9 Anemia, unspecified
CPT/HCPCS: 36415; 80053

== ENCOUNTER 2023-03-28 15:07 | Outpatient (AMB) | payer BC, SELFPAY ==
--- NOTE | 2023-03-28 15:18 | A.OFFPC_ITS ---
Vital Signs 03/28/23 15:19 Height 5 ft 11 in Weight 254 lb 8 oz BMI 35.5 BP 136/66 Blood Pressure Location Rt brachial Position Sitting Pulse 81 Pulse Source Pulse Oximeter Pulse Oximetry (%) 93 Oxygen Delivery Method Room Air Intake Visit Reasons: annual Physical&6 Month follow up Allergies adhesive tape Allergy (Unknown, Verified 03/28/23 15:19) RASH Tobacco use date assessed: 03/28/23 Fall risk assessment: No Falls in past year Last assessed Fall Risk: 03/28/23 Dental Screening Dental Screen Date: 03/28/23 Did you have a dental visit in the last 12 months?: No Did you have a dental problem in the last 6 months where you did not have access to dental care?: No Was dental information given to patient?: No HPI annual Physical&6 Month follow up HPI Details Patient is 62-year-old gentleman came in today for physical examination , patient have a history of COPD, hypertension, paroxysmal atrial fibrillation, iron deficiency anemia Labs done in February reviewed with the patient He has cardiology appointment coming up in March for his regular checkup Patient is stable and is taking all his medications breathing is stable patient is on Advair and Spiriva inhaler He offers no complaints today. I was not able to find colonoscopy report in the system we will get in touch with gastroenterology He had EGD done through Dr. Cihrinos in the past BMI is elevated at 35.5 patient need to lose weight PFSH Medical History Paroxysmal atrial fibrillation Atrial fibrillation with rapid ventricular response COPD (chronic obstructive pulmonary disease) with acute bronchitis GERD (gastroesophageal reflux disease) HTN (hypertension) Iron deficiency anemia Surgical History H/O umbilical hernia repair Family History Father Liver cancer Diabetes mellitus Mother Emphysema, unspecified CVD (cardiovascular disease) Maternal Grandmother No problems noted. Maternal Grandfather No problems noted. Paternal Grandfather No problems noted. Paternal Grandmother No problems noted. Sister No problems noted. 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 1. Little interest or pleasure in doing things: not at all 2. Feeling down, depressed, or hopeless: not at all 3. Trouble falling or staying asleep, or sleeping too much: not at all 4. Feeling tired or having little energy: not at all 5. Poor appetite or overeating: not at all 6. Feeling bad about yourself - or that you are a failure or have let yourself or your family down: not at all 7. Trouble concentrating on things, such as reading the newspaper or watching television: not at all 8. Moving or speaking so slowly that other people could have noticed. Or the opposite - being so fidgety or restless that you have been moving around a lot more than usual: not at all 9. Thoughts that you would be better off or of hurting yourself in some way: not at all Total score: 0 Depression Screening Interpretation: Negative Depression Screening Done: Yes 94118 - PHQ-9 Billing: Yes Source: Developed by Drs. Noble Sofia, Kecia Schumacher, Bucky Aguillon and colleagues, with an educational tim from [employer]. Thrive Questionnaire Date Thrive assessed: 12/20/21 AUDIT C Alcohol Use Questionnaire (AUDIT-C) 1. How often do you have a drink containing alcohol?: Monthly or less 2. How many drinks containing alcohol do you have on a typical day when you are drinking?: 1 or 2 3. How often do you have six or more drinks on one occasion?: Never Total Score: 1 Score Reviewed/Action Taken: Yes MALISSA-7 AMB Questionnaire MALISSA-7 Date MALISSA - 7 assessed: 12/20/21 Source: Developed by Drs. Noble Sofia, Bucky Ferreroenke and colleagues, with an educational tim from [employer]. Review of Systems Const Denies chills, Denies fever(s) and Denies headache(s) Eyes Denies blurry vision ENT Denies headache(s), Denies nasal discharge, Denies nasal obstruction, Denies odynophagia and Denies sinus pain Card Denies chest pain at rest and Denies chest pain with activity Resp Denies cough and Denies hemoptysis GI Denies diarrhea, Denies odynophagia, Denies vomiting and Denies hematemesis Reports as per HPI Musc Denies abnormal gait Skin/Breast Reports as per HPI Neuro Denies Neuro-related abnormal movements, Denies Abnormal speech present, Denies abnormal gait, Denies headache(s) and Denies Sensory deficit (Neuro) Psych Denies mood swings and Denies paranoia Endo Reports as per HPI Alverto/Lymph Reports as per HPI Aller/Immun Reports as per HPI Physical exam (Primary Care) Vital Signs: Last Vital Signs Pulse 81 03/28/23 15:19 BP 136/66 03/28/23 15:19 Pulse Ox 93 03/28/23 15:19 Oxygen Delivery Method Room Air 03/28/23 15:19 BMI result Body Mass Index 35.5 Tobacco/Smoking Status: Tobacco use Status Tobacco use date assessed 03/28/23 03/28/23 15:20 Patient Tobacco Use Status Former Tobacco user 03/28/23 15:20 Tobacco use type Cigarette 03/28/23 15:20 e-Cigarette/Vaping Use Never Used 03/28/23 15:20 PHQ-9: PHQ-9 Score PHQ-9: Total score 0 03/28/23 15:45 Depression Screening Interpretation: Negative Thrive Assessment: Date of Thrive Assessment Date Thrive assessed 12/20/21 03/28/23 15:20 Const General: cooperative, comfortable and no acute distress Orientation/consciousness: patient oriented x3 HENMT Head: Yes normocephalic and Yes atraumatic Eyes General: appearance normal, both eyes and all related structures Pupils: Equal, round and reactive pupils present EOM: EOMs intact bilaterally Neck Neck: Yes supple and No lymphadenopathy Thyroid: Thyroid normal Lymphatic: no lymphadenopathy noted Resp Effort & Inspection: normal respiratory effort and able to speak in complete sentences Auscultation: clear to auscultation bilaterally Cardio Heart sounds: S1 normal heart sound present and S2 normal heart sound present GI Other: Patient have a small umbilical hernia, even after repair in the past Palpation (GI): Soft to palpation and nontender Auscultation: normal bowel sounds General: Yes no CVA tenderness Back/Spine/Pelvis Back: no CVA tenderness Skin General skin exam: elasticity normal and turgor normal Neuro General: patient oriented x3 and gait normal Cranial nerves: Yes Equal, round and reactive pupils present Speech: No Abnormal speech present Sensory Exam: No Sensory deficit (Neuro) Coordination: tandem gait normal and Romberg test negative Extrem General: Yes normal exam except as noted and No edema Assessment and Plan Assessment & Plan (1) Encounter for general adult medical examination with abnormal findings: Code(s): Z00.01 - Encounter for general adult medical examination with abnormal findings (2) Hypertension, essential: Code(s): I10 - Essential (primary) hypertension (3) COPD (chronic obstructive pulmonary disease) with acute bronchitis: Code(s): J44.0 - Chronic obstructive pulmonary disease with (acute) lower respiratory in fection; J20.9 - Acute bronchitis, unspecified (4) Allergic rhinitis: Code(s): J30.9 - Allergic rhinitis, unspecified Qualifiers: Allergic rhinitis seasonality: seasonal Allergic rhinitis trigger: pollen Qualified Code(s): J30.1 - Allergic rhinitis due to pollen (5) GERD (gastroesophageal reflux disease): Code(s): K21.9 - Gastro-esophageal reflux disease without esophagitis Qualifiers: Esophagitis presence: without esophagitis Qualified Code(s): K21.9 - Gastro-esophageal reflux disease without esophagitis (6) Paroxysmal atrial fibrillation: Comment: Due to acute medical illness with pneumonia. Converted to sinus rhythm on amiodarone and metoprolol. Subsequently amiodarone was discontinued. Code(s): I48.0 - Paroxysmal atrial fibrillation (7) Iron deficiency anemia: Code(s): D50.9 - Iron deficiency anemia, unspecified Qualifiers: Iron deficiency anemia type: chronic blood loss Qualified Code(s): D50.0 - Iron deficiency anemia secondary to blood loss (chronic) (8) Obesity due to excess calories: Code(s): E66.09 - Other obesity due to excess calories Qualifiers: Body mass index: BMI 35.0-35.9 Obesity classification: adult class 2 (BMI 35 - 39.9) Serious obesity comorbidity presence: with serious comorbidity Qualified Code(s): E66.01 - Morbid (severe) obesity due to excess calories; Z68.35 - Body mass index [BMI] 35.0-35.9, adult Plan Patient is 62-year-old gentleman came in today for physical examination , patient have a history of COPD, hypertension, paroxysmal atrial fibrillation, iron deficiency anemia Labs done in February reviewed with the patient He has cardiology appointment coming up in March for his regular checkup Patient is stable and is taking all his medications breathing is stable patient is on Advair and Spiriva inhaler He offers no complaints today. I was not able to find colonoscopy report in the system we will get in touch with gastroenterology He had EGD done through Dr. Chirinos in the past BMI is elevated at 35.5 patient need to lose weight Coding Level of Care Code Est Pt Prev Care 40-64y(63809) Diagnoses Encounter for general adult medical examination with abnormal findings Z00.01 Hypertension, essential I10 COPD (chronic obstructive pulmonary disease) with acute bronchitis J44.0; J20.9 Seasonal allergic rhinitis due to pollen J30.1 Allergic rhinitis seasonality: seasonal Allergic rhinitis trigger: pollen Gastroesophageal reflux disease without esophagitis K21.9 Esophagitis presence: without esophagitis Paroxysmal atrial fibrillation I48.0 Iron deficiency anemia due to chronic blood loss D50.0 Iron deficiency anemia type: chronic blood loss Class 2 severe obesity due to excess calories with serious comorbidity and body mass index (BMI) of 35.0 to 35.9 in adult E66.01; Z68.35 Body mass index: BMI 35.0-35.9 Obesity classification: adult class 2 (BMI 35 - 39.9) Serious obesity comorbidity presence: with serious comorbidity
[2023-03-28 15:19] VITALS: BP 136/66; PULSE 81; O2SAT 93; BMI 35.5
== END 2023-03-28 15:41 | disposition home or self-care (01) ==
PROVIDERS: Visit Provider Internal Medicine
DX: Z00.01 Encounter for general adult medical examination with abnormal findings (principal); J44.0 Chronic obstructive pulmonary disease with (acute) lower respiratory infection; I48.0 Paroxysmal atrial fibrillation; E66.01 Morbid (severe) obesity due to excess calories; Z68.35 Body mass index [BMI] 35.0-35.9, adult; I10 Essential (primary) hypertension; J20.9 Acute bronchitis, unspecified; J30.1 Allergic rhinitis due to pollen; K21.9 Gastro-esophageal reflux disease without esophagitis; D50.0 Iron deficiency anemia secondary to blood loss (chronic)
CPT/HCPCS: 99396

== ENCOUNTER 2023-05-21 14:32 | Outpatient (AMB) | payer BC, SELFPAY ==
--- NOTE | 2023-05-21 14:36 | MHC.OFFVIS ---
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 Allergies adhesive tape Allergy (Unknown, Verified 03/28/23 15:19) RASH Medication List - Last Reconciled 05/21/23 by Maxim Gutierrez MD albuterol sulfate 90 mcg/actuation (ProAir HFA) 1 inh inhalation QID PRN 30 days ascorbic acid (vitamin C) (Vitamin C) 500 mg PO DAILY cetirizine (Zyrtec) 10 mg PO DAILY 90 days ferrous sulfate (Iron (ferrous sulfate)) 325 mg PO BID 9 days fluticasone propion-salmeterol 250-50 mcg/dose (Advair Diskus) 1 ea inhalation BID losartan 25 mg PO DAILY metoprolol succinate ER 50 mg PO DAILY omeprazole 20 mg PO BID@0630,1630 90 days tiotropium bromide 2.5 mcg/actuation (Spiriva Respimat) 2 puffs PO DAILY HPI HPI Comments History of Present Illness Details Mitchel comes for follow-up. He has no cardiovascular symptoms. He continues to remain active and denies any symptoms of exertional chest pain or shortness of breath. He said his COPD under control. He has not had any prolonged irregular heartbeat or palpitations. Denies any lightheadedness, syncope. Blood pressure is generally well control. He takes all his medications. Denies exertional lightheadedness. No orthopnea, PND, leg edema. [facility] Medical History Paroxysmal atrial fibrillation Atrial fibrillation with rapid ventricular response COPD (chronic obstructive pulmonary disease) with acute bronchitis GERD (gastroesophageal reflux disease) HTN (hypertension) Iron deficiency anemia Surgical History H/O umbilical hernia repair Family History Father Liver cancer Diabetes mellitus Mother Emphysema, unspecified CVD (cardiovascular disease) Maternal Grandmother No problems noted. Maternal Grandfather No problems noted. Paternal Grandfather No problems noted. Paternal Grandmother No problems noted. Sister No problems noted. 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 Cognitive needs: No Hearing needs: No Vision needs: Yes Review of Systems Const Denies chills, Denies fatigue, Denies fever(s), Denies frequent falls, Denies weakness, Denies weight gain and Denies weight loss ENT Denies dizziness Card Denies chest pain, Denies leg edema, Denies lightheadedness, Denies palpitations, Denies dyspnea, Denies dyspnea on exertion, Denies orthopnea and Denies other (loss of consciousness) Resp Denies cough, Denies dyspnea and Denies dyspnea on exertion GI Denies hematochezia and Denies change in stool character Musc Denies abnormal gait, Denies muscle weakness, Denies numbness, Denies radiating pain into limb and Denies tingling Neuro Denies abnormal gait, Denies dizziness, Denies frequent falls, Denies numbness, Denies tingling and Denies weakness Endo Denies fatigue and Denies palpitations Physical Exam Vital Signs: Last Vital Signs Pulse 67 05/21/23 14:40 BP 120/76 05/21/23 14:40 BMI result Body Mass Index 35.4 Const General: cooperative, comfortable and no acute distress Orientation/consciousness: patient oriented x3 Neck Neck: Yes normal visual inspection and Yes no JVD Resp Effort & Inspection: normal respiratory effort Auscultation: clear to auscultation bilaterally, no crackles, no rales, no rhonchi, no wheezes and diminished lung sounds Cardio Jugular venous distension: no JVD Rate: regular rate Rhythm: regular rhythm Heart sounds: S1 normal heart sound present, S2 normal heart sound present, no gallops, no murmurs and no rubs Peripheral pulses: Peripheral pulses 2+ throughout GI Inspection: Yes normal to inspection Skin General skin exam: no rashes or lesions noted Neuro General: patient oriented x3 Extrem General: Yes normal to inspection, No no pedal edema and No calf tenderness Office Procedures EKG Details: EKG shows normal sinus rhythm with right bundle-branch block and left axis deviation [id number], Complete Assessment & Plan Assessment & Plan (1) Paroxysmal atrial fibrillation: Comment: Due to acute medical illness with pneumonia. Converted to sinus rhythm on amiodarone and metoprolol. Subsequently amiodarone was discontinued. Code(s): I48.0 - Paroxysmal atrial fibrillation Plan: Patient with paroxysmal atrial fibrillation in setting of acute medical illness. No clinical recurrence since then. Does have risk factors for the same. Advised to report any new symptoms. In absence of recurrent atrial fibrillation is no change in therapy. Continue metoprolol therapy. Avoidance of stimulants was discussed. No indication for antiarrhythmic drug therapy. Follow-up echocardiogram in 1 year's time. Encouraged to continue participate in regular physical activity and weight loss program. (2) Hypertension, essential: Code(s): I10 - Essential (primary) hypertension Plan: Hypertension which is currently well optimized advised to monitor blood pressure at home maintain a log. Goal blood pressure less than 130/84. Continue current therapy. Continue low-salt diet. Advised to participate in heart healthy lifestyle with regular weight loss program. Will follow up in the clinic in 1 year's time, sooner p.r.n.. Thank you for allowing me to partake in his care Coding Level of Care Code Est Pt Level 4 (99679) Diagnoses Paroxysmal atrial fibrillation I48.0 Hypertension, essential I10 CPT Codes EKG - CPT: 55300-[id number], Complete ([id number])
[2023-05-21 14:40] VITALS: BP 120/76; PULSE 67; BMI 35.4
== END 2023-05-21 14:55 | disposition home or self-care (01) ==
PROVIDERS: Visit Provider Internal Medicine Cardiovascular Disease
DX: I48.0 Paroxysmal atrial fibrillation (principal); I10 Essential (primary) hypertension
CPT/HCPCS: 93010; 99214

== ENCOUNTER → 2023-05-21 14:32 | Outpatient (BNVA) | payer BC, SELFPAY | PROVIDERS: Visit Provider Internal Medicine Cardiovascular Disease | DX: I48.0 Paroxysmal atrial fibrillation (principal); I10 Essential (primary) hypertension | CPT/HCPCS: 93005 ==

== ENCOUNTER 2023-10-05 15:12 | Outpatient (AMB) | payer BC, SELFPAY ==
[2023-10-05 15:19] VITALS: BP 140/78; PULSE 73; O2SAT 94; BMI 35.0
--- NOTE | 2023-10-05 15:19 | A.OFFPC_ITS ---
Vital Signs 10/05/23 15:19 Height 5 ft 11 in Weight 251 lb 2 oz BMI 35.0 BP 140/78 H Blood Pressure Location Rt brachial Position Sitting Pulse 73 Pulse Source Pulse Oximeter Pulse Oximetry (%) 94 Oxygen Delivery Method Room Air Intake Visit Reasons: 6 month fu Allergies adhesive tape Allergy (Unknown, Verified 10/05/23 15:21) RASH Medication List - Last Reconciled 10/05/23 by Salvador Sandoval MD albuterol sulfate 90 mcg/actuation (ProAir HFA) 1 inh inhalation QID PRN 30 days ascorbic acid (vitamin C) (Vitamin C) 500 mg PO DAILY cetirizine (Zyrtec) 10 mg PO DAILY 90 days ferrous sulfate (Iron (ferrous sulfate)) 325 mg PO BID 9 days fluticasone propion-salmeterol 250-50 mcg/dose (Advair Diskus) 1 ea inhalation BID losartan 25 mg PO DAILY metoprolol succinate ER 50 mg PO DAILY omeprazole 20 mg PO BID@0630,1630 90 days tiotropium bromide 2.5 mcg/actuation (Spiriva Respimat) 2 puffs PO DAILY Tobacco use date assessed: 10/05/23 Fall risk assessment: No Falls in past year Last assessed Fall Risk: 10/05/23 Dental Screening Dental Screen Date: 10/05/23 Did you have a dental visit in the last 12 months?: No Did you have a dental problem in the last 6 months where you did not have access to dental care?: No Was dental information given to patient?: No HPI 6 month fu HPI Details Patient is a 62-year-old gentleman came in today for his regular follow-up appointment Labs done recently reviewed his hemoglobin is within normal range and his ferritin is also within normal range Patient says that he feels great He is seeing hematology every 3 months Patient is on losartan 25 mg and metoprolol 50 mg his blood pressure is stable He has not had any atrial fibrillation in a while COPD/asthma stable with Advair and Spiriva. Patient is also on omeprazole 20 mg for chronic GERD symptoms which is stable with medicine. BMI is elevated patient is trying to lose weight Follow-up 6 months for physical exam [facility] Medical History Paroxysmal atrial fibrillation Atrial fibrillation with rapid ventricular response COPD (chronic obstructive pulmonary disease) with acute bronchitis GERD (gastroesophageal reflux disease) HTN (hypertension) Iron deficiency anemia Surgical History H/O umbilical hernia repair Family History Father Liver cancer Diabetes mellitus Mother Emphysema, unspecified CVD (cardiovascular disease) Maternal Grandmother No problems noted. Maternal Grandfather No problems noted. Paternal Grandfather No problems noted. Paternal Grandmother No problems noted. Sister No problems noted. 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 1. Little interest or pleasure in doing things: not at all 2. Feeling down, depressed, or hopeless: not at all 3. Trouble falling or staying asleep, or sleeping too much: not at all 4. Feeling tired or having little energy: not at all 5. Poor appetite or overeating: not at all 6. Feeling bad about yourself - or that you are a failure or have let yourself or your family down: not at all 7. Trouble concentrating on things, such as reading the newspaper or watching television: not at all 8. Moving or speaking so slowly that other people could have noticed. Or the opposite - being so fidgety or restless that you have been moving around a lot more than usual: not at all 9. Thoughts that you would be better off or of hurting yourself in some way: not at all Total score: 0 Depression Screening Interpretation: Negative Depression Screening Done: Yes 53760 - PHQ-9 Billing: Yes Source: Developed by Drs. Noble Sofia, Kecia Schumacher, Bucky Aguillon and colleagues, with an educational tim from [employer]. Thrive Questionnaire Date Thrive assessed: 10/05/23 I am a: Patient What is your living situation today?: I have a steady place to live Within the past 12 months, did the food you bought not last and you didn't have the money to get more?: Never true Within the past 12 months, did you worry whether your food would run out before you got money to buy more?: Never true Do you have trouble paying for medicines?: No Do you have trouble getting transportation to medical appointments?: No Do you have trouble paying your heating and electricity bill?: No Do you have trouble taking care of your child, family member or friend?: No Do you have trouble with day-to-day activities such as bathing, preparing meals, shopping, managing finances, etc.?: No Are you currently unemployed and looking for a job?: No Are you interested in more education?: No Please select the resources that you would like help with: None Currently or been in a relationship where the following occur: no concerns reported THRIVE Score: 0 AUDIT C Alcohol Use Questionnaire (AUDIT-C) 1. How often do you have a drink containing alcohol?: 2-4 times a month 2. How many drinks containing alcohol do you have on a typical day when you are drinking?: 1 or 2 3. How often do you have six or more drinks on one occasion?: Never Total Score: 2 Score Reviewed/Action Taken: No MALISSA-7 AMB Questionnaire MALISSA-7 Date MALISSA - 7 assessed: 10/05/23 Feeling nervous, anxious, or on edge: 0 = Not at all Not being able to stop or control worryin = Not at all Worrying too much about different things: 0 = Not at all Trouble relaxin = Not at all Being so restless that it is hard to sit still: 0 = Not at all Becoming easily annoyed or irritable: 0 = Not at all Feeling afraid as if something awful might happen: 0 = Not at all Total MALISSA-7 score (0-4 normal; 5-9 mild; 10-14 moderate; 15-21 severe): 0 Source: Developed by Kecia Farnsworth.W. Endy, Bucky Aguillon and colleagues, with an educational tim from [employer]. MALISSA-7 Assessment Billing MALISSA-7 Assessment Tool: MALISSA-7 Assessment 54917 Review of Systems Const Denies chills and Denies fever(s) ENT Denies epistaxis and Denies nasal discharge Card Denies chest pain Resp Denies chest congestion, Denies cough and Denies hemoptysis GI Denies diarrhea and Denies nausea Skin/Breast Denies rash Neuro Reports no additional complaints Psych Reports no additional complaints Endo Reports no additional complaints Physical exam (Primary Care) Vital Signs: Last Vital Signs Pulse 73 10/05/23 15:19 BP 140/78 H 10/05/23 15:19 Pulse Ox 94 10/05/23 15:19 Oxygen Delivery Method Room Air 10/05/23 15:19 BMI result Body Mass Index 35.0 Tobacco/Smoking Status: Tobacco use Status Tobacco use date assessed 10/05/23 10/05/23 15:24 Patient Tobacco Use Status Former Tobacco user 10/05/23 15:19 Tobacco use type Cigarette 10/05/23 15:19 e-Cigarette/Vaping Use Never Used 10/05/23 15:19 PHQ-9: PHQ-9 Score PHQ-9: Total score 0 10/05/23 15:27 Depression Screening Interpretation: Negative Thrive Assessment: Date of Thrive Assessment Date Thrive assessed 10/05/23 10/05/23 15:27 Currently or been in a relationship where the following occur: no concerns reported Const General: cooperative, comfortable and no acute distress Orientation/consciousness: patient oriented x3 HENMT Head: Yes normocephalic Eyes General: appearance normal, both eyes and all related structures Neck Neck: Yes supple Resp Effort & Inspection: normal respiratory effort, no cough and no stridor Cardio Rhythm: regular rhythm Heart sounds: S1 normal heart sound present and S2 normal heart sound present Skin General skin exam: turgor normal Neuro General: patient oriented x3, tone normal and moves all extremities Extrem Right lower extremity: no edema Left lower extremity: no edema Assessment and Plan Assessment & Plan (1) Hypertension, essential: Code(s): I10 - Essential (primary) hypertension (2) COPD (chronic obstructive pulmonary disease) with acute bronchitis: Code(s): J44.0 - Chronic obstructive pulmonary disease with (acute) lower respiratory infection; J20.9 - Acute bronchitis, unspecified (3) Allergic rhinitis: Code(s): J30.9 - Allergic rhinitis, unspecified Qualifiers: Allergic rhinitis trigger: pollen Allergic rhinitis seasonality: seasonal Qualified Code(s): J30.1 - Allergic rhinitis due to pollen (4) GERD (gastroesophageal reflux disease): Code(s): K21.9 - Gastro-esophageal reflux disease without esophagitis Qualifiers: Esophagitis presence: without esophagitis Qualified Code(s): K21.9 - Gastro-esophageal reflux disease without esophagitis (5) Paroxysmal atrial fibrillation: Comment: Due to acute medical illness with pneumonia. Converted to sinus rhythm on amiodarone and metoprolol. Subsequently amiodarone was discontinued. Code(s): I48.0 - Paroxysmal atrial fibrillation (6) Iron deficiency anemia: Code(s): D50.9 - Iron deficiency anemia, unspecified Qualifiers: Iron deficiency anemia type: chronic blood loss Qualified Code(s): D50.0 - Iron deficiency anemia secondary to blood loss (chronic) (7) Obesity due to excess calories: Code(s): E66.09 - Other obesity due to excess calories Qualifiers: Obesity classification: adult class 2 (BMI 35 - 39.9) Serious obesity comorbidity presence: with serious comorbidity Body mass index: BMI 35.0-35.9 Qualified Code(s): E66.01 - Morbid (severe) obesity due to excess calories; Z68.35 - Body mass index [BMI] 35.0-35.9, adult Plan Patient is a 62-year-old gentleman came in today for his regular follow-up appointment Labs done recently reviewed his hemoglobin is within normal range and his ferritin is also within normal range Patient says that he feels great He is seeing hematology every 3 months Allergies are acting up due to arrival of spring, cetirizine refill sent Patient is on losartan 25 mg and metoprolol 50 mg his blood pressure is stable He has not had any atrial fibrillation in a while COPD/asthma stable with Advair and Spiriva. Patient is also on omeprazole 20 mg for chronic GERD symptoms which is stable with medicine. BMI is elevated patient is trying to lose weight Follow-up 6 months for physical exam Medications: Refilled cetirizine (Zyrtec) 10 mg PO DAILY 90 days 90 tabs 1RF Coding Level of Care Code Est Pt Level 4 (60422) Diagnoses Hypertension, essential I10 COPD (chronic obstructive pulmonary disease) with acute bronchitis J44.0; J20.9 Seasonal allergic rhinitis due to pollen J30.1 Allergic rhinitis trigger: pollen Allergic rhinitis seasonality: seasonal Gastroesophageal reflux disease without esophagitis K21.9 Esophagitis presence: without esophagitis Paroxysmal atrial fibrillation I48.0 Iron deficiency anemia due to chronic blood loss D50.0 Iron deficiency anemia type: chronic blood loss Class 2 severe obesity due to excess calories with serious comorbidity and body mass index (BMI) of 35.0 to 35.9 in adult E66.01; Z68.35 Obesity classification: adult class 2 (BMI 35 - 39.9) Serious obesity comorbidity presence: with serious comorbidity Body mass index: BMI 35.0-35.9 Additional Codes MALISSA-7 Assessment Billing - MALISSA-7 Assessment Tool: MALISSA-7 Assessment 36086 ([id number])
== END 2023-10-05 16:33 | disposition home or self-care (01) ==
PROVIDERS: PCP Internal Medicine; Visit Provider Internal Medicine
DX: J44.0 Chronic obstructive pulmonary disease with (acute) lower respiratory infection (principal); I48.0 Paroxysmal atrial fibrillation; E66.01 Morbid (severe) obesity due to excess calories; Z68.35 Body mass index [BMI] 35.0-35.9, adult; I10 Essential (primary) hypertension; J20.9 Acute bronchitis, unspecified; J30.1 Allergic rhinitis due to pollen; K21.9 Gastro-esophageal reflux disease without esophagitis; D50.0 Iron deficiency anemia secondary to blood loss (chronic)
CPT/HCPCS: 99214

== ENCOUNTER 2024-04-16 15:17 | Outpatient (AMB) | payer BC, SELFPAY ==
[2024-04-16 15:24] VITALS: BP 146/92; PULSE 73; O2SAT 98; BMI 35.3
--- NOTE | 2024-04-16 15:24 | MHC.PC.OV ---
Vital Signs 04/16/24 15:24 Height 5 ft 11 in Weight 253 lb 6 oz BMI 35.3 BP 146/92 H Blood Pressure Location Lt brachial Position Sitting Pulse 73 Pulse Source Pulse Oximeter Pulse Oximetry (%) 98 Oxygen Delivery Method Room Air Intake Visit Reasons: Annual PE Allergies adhesive tape Allergy (Unknown, Verified 04/16/24 15:26) RASH Medication List - Last Reconciled 04/16/24 by Salvador Sandoval MD albuterol sulfate 90 mcg/actuation 1 inh inhalation QID PRN 30 days ascorbic acid (vitamin C) (Vitamin C) 500 mg PO DAILY cetirizine (Zyrtec) 10 mg PO DAILY 90 days ferrous sulfate (Iron (ferrous sulfate)) 325 mg PO BID 9 days fluticasone propion-salmeterol 250-50 mcg/dose (Advair Diskus) 1 ea inhalation BID losartan 25 mg PO DAILY metoprolol succinate ER 50 mg PO DAILY omeprazole 20 mg PO BID@0630,1630 90 days tiotropium bromide 2.5 mcg/actuation (Spiriva Respimat) 2 puffs PO DAILY Tobacco use date assessed: 04/16/24 Fall risk assessment: No Falls in past year Last assessed Fall Risk: 04/16/24 Dental Screening Dental Screen Date: 04/16/24 Did you have a dental visit in the last 12 months?: Yes Did you have a dental problem in the last 6 months where you did not have access to dental care?: No Was dental information given to patient?: Patient has dentist HPI Annual PE HPI Details Patient is 63-year-old gentleman with a history of atrial fibrillation, COPD, obesity, hypertension, iron-deficiency anemia Came in for physical exam Colonoscopy [place] [address] Chirinos next 1 will be in 2024 Lab order placed to be done fasting Blood pressure is elevated Patient says that he has been monitoring it at home and it runs in 120s systolic Next time he will bring his blood pressure monitor along Medication list reviewed It is recommended that he try to lose some weight Allergies are stable Breathing is stable with Advair and Spiriva GERD is stable with omeprazole Follow-up six-month physical exam 1 year [facility]LY [facility], [facility] Medical History Paroxysmal atrial fibrillation Atrial fibrillation with rapid ventricular response COPD (chronic obstructive pulmonary disease) with acute bronchitis GERD (gastroesophageal reflux disease) HTN (hypertension) Iron deficiency anemia Surgical History H/O umbilical hernia repair Family History Father Liver cancer Diabetes mellitus Mother Emphysema, unspecified CVD (cardiovascular disease) Maternal Grandmother No problems noted. Maternal Grandfather No problems noted. Paternal Grandfather No problems noted. Paternal Grandmother No problems noted. Sister No problems noted. 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 1. Little interest or pleasure in doing things: not at all 2. Feeling down, depressed, or hopeless: not at all 3. Trouble falling or staying asleep, or sleeping too much: not at all 4. Feeling tired or having little energy: not at all 5. Poor appetite or overeating: not at all 6. Feeling bad about yourself - or that you are a failure or have let yourself or your family down: not at all 7. Trouble concentrating on things, such as reading the newspaper or watching television: not at all 8. Moving or speaking so slowly that other people could have noticed. Or the opposite - being so fidgety or restless that you have been moving around a lot more than usual: not at all 9. Thoughts that you would be better off or of hurting yourself in some way: not at all Total score: 0 Depression Screening Interpretation: Negative Depression Screening Done: Yes 80993 - PHQ-9 Billing: Yes Source: Developed by Drs. Noble LKecia Perdue, Bucky Aguillon and colleagues, with an educational tim from [employer]. Thrive Questionnaire Date Thrive assessed: 04/16/24 I am a: Patient What is your living situation today?: I have a steady place to live Within the past 12 months, did the food you bought not last and you didn't have the money to get more?: Never true Within the past 12 months, did you worry whether your food would run out before you got money to buy more?: Never true Do you have trouble paying for medicines?: No Do you have trouble getting transportation to medical appointments?: No Do you have trouble paying your heating and electricity bill?: No Do you have trouble taking care of your child, family member or friend?: No Do you have trouble with day-to-day activities such as bathing, preparing meals, shopping, managing finances, etc.?: No Are you currently unemployed and looking for a job?: No Are you interested in more education?: No Please select the resources that you would like help with: None Currently or been in a relationship where the following occur: No concerns reported THRIVE Score: 0 AUDIT C Alcohol Use Questionnaire (AUDIT-C) 1. How often do you have a drink containing alcohol?: 2-4 times a month 2. How many drinks containing alcohol do you have on a typical day when you are drinking?: 1 or 2 3. How often do you have six or more drinks on one occasion?: Never Total Score: 2 Score Reviewed/Action Taken: Yes MALISSA-7 AMB Questionnaire MALISSA-7 Date MALISSA - 7 assessed: 04/16/24 Feeling nervous, anxious, or on edge: 0 = Not at all Not being able to stop or control worryin = Not at all Worrying too much about different things: 0 = Not at all Trouble relaxin = Not at all Being so restless that it is hard to sit still: 0 = Not at all Becoming easily annoyed or irritable: 0 = Not at all Feeling afraid as if something awful might happen: 0 = Not at all Total MALISSA-7 score (0-4 normal; 5-9 mild; 10-14 moderate; 15-21 severe): 0 Source: Developed by Kecia Farnsworth Kurt Kroenke and colleagues, with an educational tim from [employer]. MALISSA-7 Assessment Billing MALISSA-7 Assessment Tool: MALISSA-7 Assessment 32648 Review of Systems Const Denies chills, Denies fever(s) and Denies headache(s) Eyes Denies blurry vision ENT Denies headache(s), Denies nasal discharge, Denies nasal obstruction, Denies odynophagia and Denies sinus pain Card Denies chest pain at rest and Denies chest pain with activity Resp Denies cough and Denies hemoptysis GI Denies diarrhea, Denies odynophagia, Denies vomiting and Denies hematemesis Reports as per HPI Musc Denies abnormal gait Skin/Breast Reports as per HPI Neuro Denies Neuro-related abnormal movements, Denies Abnormal speech present, Denies abnormal gait, Denies headache(s) and Denies Sensory deficit (Neuro) Psych Denies mood swings and Denies paranoia Endo Reports as per HPI Alverto/Lymph Reports as per HPI Aller/Immun Reports as per HPI Physical exam (Primary Care) Vital Signs: Last Vital Signs Pulse 73 04/16/24 15:24 BP 146/92 H 04/16/24 15:24 Pulse Ox 98 04/16/24 15:24 Oxygen Delivery Method Room Air 04/16/24 15:24 BMI result Body Mass Index 35.3 Tobacco/Smoking Status: Tobacco use Status Tobacco use date assessed 04/16/24 04/16/24 15:27 Patient Tobacco Use Status Former Tobacco user 04/16/24 15:27 Tobacco use type Cigarette 04/16/24 15:27 e-Cigarette/Vaping Use Never Used 04/16/24 15:27 PHQ-9: PHQ-9 Score PHQ-9: Total score 0 04/16/24 15:27 Depression Screening Interpretation: Negative Thrive Assessment: Date of Thrive Assessment Date Thrive assessed 04/16/24 04/16/24 15:27 Currently or been in a relationship where the following occur: No concerns reported Const General: cooperative, comfortable and no acute distress Orientation/consciousness: patient oriented x3 HENMT Head: Yes normocephalic and Yes atraumatic Eyes General: appearance normal, both eyes and all related structures Pupils: Equal, round and reactive pupils present EOM: EOMs intact bilaterally Neck Neck: Yes supple and No lymphadenopathy Thyroid: Thyroid normal Resp Effort & Inspection: normal respiratory effort and able to speak in complete sentences Auscultation: clear to auscultation bilaterally Cardio Heart sounds: S1 normal heart sound present and S2 normal heart sound present GI Other: Reducible umbilical hernia without any pain present Palpation (GI): Soft to palpation and nontender Auscultation: normal bowel sounds General: Yes no CVA tenderness Back/Spine/Pelvis Back: no CVA tenderness Skin General skin exam: elasticity normal and turgor normal Neuro General: patient oriented x3 and gait normal Cranial nerves: Yes Equal, round and reactive pupils present Speech: No Abnormal speech present Sensory Exam: No Sensory deficit (Neuro) Coordination: tandem gait normal and Romberg test negative Extrem General: Yes normal exam except as noted and No edema Coding Level of Care Code Est Pt Level 3 (21517) Est Pt Prev Care >65y(26683) Diagnoses Encounter for general adult medical examination with abnormal findings Z00. Paroxysmal atrial fibrillation I48.0 COPD (chronic obstructive pulmonary disease) with acute bronchitis J44.0; J20.9 Class 2 severe obesity due to excess calories with serious comorbidity and body mass index (BMI) of 35.0 to 35.9 in adult E66.01; Z68.35 Body mass index: BMI 35.0-35.9 Obesity classification: adult class 2 (BMI 35 - 39.9) Serious obesity comorbidity presence: with serious comorbidity Gastroesophageal reflux disease without esophagitis K21.9 Esophagitis presence: without esophagitis Hypertension, essential I10 Iron deficiency anemia due to chronic blood loss D50.0 Iron deficiency anemia type: chronic blood loss Umbilical hernia without obstruction and without gangrene K42.9 Additional Codes MALISSA-7 Assessment Billing - MALISSA-7 Assessment Tool: MALISSA-7 Assessment 47089 ([id number]) Assessment & Plan Assessment & Plan (1) Encounter for general adult medical examination with abnormal findings: Code(s): Z00.01 - Encounter for general adult medical examination with abnormal findings Category: Medical (2) Paroxysmal atrial fibrillation: Comment: Due to acute medical illness with pneumonia. Converted to sinus rhythm on amiodarone and metoprolol. Subsequently amiodarone was discontinued. Code(s): I48.0 - Paroxysmal atrial fibrillation Category: Medical (3) COPD (chronic obstructive pulmonary disease) with acute bronchitis: Code(s): J44.0 - Chronic obstructive pulmonary disease with (acute) lower respiratory infection; J20.9 - Acute bronchitis, unspecified Category: Medical (4) Obesity due to excess calories: Code(s): E66.09 - Other obesity due to excess calories Category: Medical Qualifiers: Body mass index: BMI 35.0-35.9 Obesity classification: adult class 2 (BMI 35 - 39.9) Serious obesity comorbidity presence: with serious comorbidity Qualified Code(s): E66.01 - Morbid (severe) obesity due to excess calories; Z68.35 - Body mass index [BMI] 35.0-35.9, adult (5) GERD (gastroesophageal reflux disease): Code(s): K21.9 - Gastro-esophageal reflux disease without esophagitis Category: Medical Qualifiers: Esophagitis presence: without esophagitis Qualified Code(s): K21.9 - Gastro-esophageal reflux disease without esophagitis (6) Hypertension, essential: Code(s): I10 - Essential (primary) hypertension Category: Medical (7) Iron deficiency anemia: Code(s): D50.9 - Iron deficiency anemia, unspecified Category: Medical Qualifiers: Iron deficiency anemia type: chronic blood loss Qualified Code(s): D50.0 - Iron deficiency anemia secondary to blood loss (chronic) (8) Umbilical hernia without obstruction and without gangrene: Code(s): K42.9 - Umbilical hernia without obstruction or gangrene Category: Medical Plan Patient is 63-year-old gentleman with a history of atrial fibrillation, COPD, obesity, hypertension, iron-deficiency anemia Came in for physical exam Colonoscopy [place] [address] Chirinos next 1 will be in 2024 Lab order placed to be done fasting Blood pressure is elevated Patient says that he has been monitoring it at home and it runs in 120s systolic Next time he will bring his blood pressure monitor along Medication list reviewed It is recommended that he try to lose some weight Allergies are stable Breathing is stable with Advair and Spiriva GERD is stable with omeprazole Iron-deficiency anemia, management through Hematology [facility] Cardiac management through Cardiology [facility] Follow-up six-month physical exam 1 year Orders: Orders Complete Blood Count Auto Diff Today D50.0 - Iron deficiency anemia secondary to blood loss (chronic), E66.01 - Morbid (severe) obesity due to excess calories, I10 - Essential (primary) hypertension, I48.0 - Paroxysmal atrial fibrillation, J20.9 - Acute bronchitis, unspecified, J44.0 - Chronic obstructive pulmonary disease with (acute) lower respiratory infection, K21.9 - Gastro-esophageal reflux disease without esophagitis, Z00.01 - Encounter for general adult medical examination with abnormal findings, Z68.35 - Body mass index [BMI] 35.0-35.9, adult TSH reflex Free T4 Today D50.0 - Iron deficiency anemia secondary to blood loss (chronic), E66.01 - Morbid (severe) obesity due to excess calories, I10 - Essential (primary) hypertension, I48.0 - Paroxysmal atrial fibrillation, J20.9 - Acute bronchitis, unspecified, J44.0 - Chronic obstructive pulmonary disease with (acute) lower respiratory infection, K21.9 - Gastro-esophageal reflux disease without esophagitis, Z00.01 - Encounter for general adult medical examination with abnormal findings, Z68.35 - Body mass index [BMI] 35.0-35.9, adult Comprehensive [place]. Panel Fast Today D50.0 - Iron deficiency anemia secondary to blood loss (chronic), E66.01 - Morbid (severe) obesity due to excess calories, I10 - Essential (primary) hypertension, I48.0 - Paroxysmal atrial fibrillation, J20.9 - Acute bronchitis, unspecified, J44.0 - Chronic obstructive pulmonary disease with (acute) lower respiratory infection, K21.9 - Gastro-esophageal reflux disease without esophagitis, Z00.01 - Encounter for general adult medical examination with abnormal findings, Z68.35 - Body mass index [BMI] 35.0-35.9, adult Lipid Panel Today D50.0 - Iron deficiency anemia secondary to blood loss (chronic), E66.01 - Morbid (severe) obesity due to excess calories, I10 - Essential (primary) hypertension, I48.0 - Paroxysmal atrial fibrillation, J20.9 - Acute bronchitis, unspecified, J44.0 - Chronic obstructive pulmonary disease with (acute) lower respiratory infection, K21.9 - Gastro-esophageal reflux disease without esophagitis, Z00.01 - Encounter for general adult medical examination with abnormal findings, Z68.35 - Body mass index [BMI] 35.0-35.9, adult Vitamin D 25-OH (D2 and D3) Today D50.0 - Iron deficiency anemia secondary to blood loss (chronic), E66.01 - Morbid (severe) obesity due to excess calories, I10 - Essential (primary) hypertension, I48.0 - Paroxysmal atrial fibrillation, J20.9 - Acute bronchitis, unspecified, J44.0 - Chronic obstructive pulmonary disease with (acute) lower respiratory infection, K21.9 - Gastro-esophageal reflux disease without esophagitis, Z00.01 - Encounter for general adult medical examination with abnormal findings, Z68.35 - Body mass index [BMI] 35.0-35.9, adult
== END 2024-04-16 16:27 | disposition home or self-care (01) ==
PROVIDERS: PCP Internal Medicine; Visit Provider Internal Medicine
DX: Z00.00 Encounter for general adult medical examination without abnormal findings (principal); I48.0 Paroxysmal atrial fibrillation; E66.01 Morbid (severe) obesity due to excess calories; Z68.35 Body mass index [BMI] 35.0-35.9, adult; J44.0 Chronic obstructive pulmonary disease with (acute) lower respiratory infection; J20.9 Acute bronchitis, unspecified; K21.9 Gastro-esophageal reflux disease without esophagitis; I10 Essential (primary) hypertension; D50.0 Iron deficiency anemia secondary to blood loss (chronic); K42.9 Umbilical hernia without obstruction or gangrene

== ENCOUNTER → 2024-04-16 15:17 | Outpatient (BNVA) | payer BC, SELFPAY | PROVIDERS: PCP Internal Medicine; Visit Provider Internal Medicine | DX: Z00.01 Encounter for general adult medical examination with abnormal findings (principal); I48.0 Paroxysmal atrial fibrillation; J44.0 Chronic obstructive pulmonary disease with (acute) lower respiratory infection; J20.9 Acute bronchitis, unspecified; E66.09 Other obesity due to excess calories; Z68.35 Body mass index [BMI] 35.0-35.9, adult; K21.9 Gastro-esophageal reflux disease without esophagitis; I10 Essential (primary) hypertension; D50.0 Iron deficiency anemia secondary to blood loss (chronic); K42.9 Umbilical hernia without obstruction or gangrene | CPT/HCPCS: 96127 ==

== ENCOUNTER → 2024-05-02 14:18 | Outpatient (REF) | payer BC, SELFPAY ==
--- NOTE | 2024-05-02 14:21 | CA_ITS ---
Transthoracic Echocardiogram Patient (Last, First, Middle): Mitchel Reno, Gender: Male Date of : 1960 Age: 63 Procedure Date: 05/02/2024 Procedure Type: Transthoracic Echocardiogram Location: OP Height: 180. cm Weight: 113.4 kg BSA: 2.32 m2 Heart Rate: 65 bpm BP: 132 / 70 mmHg Emergency Physician: JORGE L Referring MD: Maxim Gutierrez MD Bench Molder Apprentice: Maxim Gutierrez MD Symptoms: I48.0 - Paroxysmal atrial fibrillation Study Quality: Fair ECG Rhythm: Sinus Conclusions: - 1. Normal LV ejection fraction 55-60% with impaired relaxation filling pattern 2. Mild aortic regurgitation 3. Cniw-ro-rhemhndz ascending aortic enlargement at 4.4 cm 4. No gross pericardial effusion Findings Left Ventricle Normal left ventricular size, thickness, and systolic function. The visually estimated ejection fraction is between 55-60%. Spectral Doppler is indicative of an impaired relaxation filling pattern. Peak GLS is -18.7%, within normal limits. Right Ventricle Mildly increased right ventricular cavity size. There is normal right ventricular systolic function. Atria The left atrium is normal in size. There is no evidence of interatrial shunt. The right atrium is normal in size. Aortic Valve The aortic valve was not well visualized. There is mild calcification of the aortic valve. There is no aortic valve stenosis. There is mild aortic valve regurgitation. Mitral Valve There is mild anterior mitral leaflet thickening. There is mild mitral annular calcification. There is trace mitral valve regurgitation. There is no mitral valve stenosis. Pulmonic Valve The pulmonic valve is likely normal. Tricuspid Valve Likely normal tricuspid valve structure and function. Tricuspid regurgitation envelope is inadequate for calculation of right ventricular systolic pressure. Normal right atrial pressure. Great Vessels The pulmonary artery was not well visualized. There is mild dilatation of the ascending aorta measuring 4.40 cm. Venous The inferior vena cava is normal in size and collapses greater than 50% with inspiration. Pericardium/Pleural There is no evidence of pericardial effusion. Prior Study Comparison No significant change compared to prior study dated: 01/11/2021. Measurements 2D Linear Measurements IVSd: 1.21 0.6-0.9/0.6-1.0 cm LVIDd: 5.76 3.9-5.3/4.2-5.9 cm LVIDd Index: 2.48 2.4-3.2/2.2-3.1 cm/m2 LVIDs: 3.35 2.0-3.6 cm LVPWd: 1.01 0.7-1.1 cm LA Diam: 3.70 2.7-3.8/3.0-4.0 cm LAIDs Index: 1.59 1.5-2.3 cm/m2 LV Mass: 329.75 67-162/88-224 g LV Mass Index: 142.13 43-95/49-115 g/m2 LVOT Diam: 2.30 3.0+(-)1.3 cm 2D Systolic Function EF 4C: 64.20 >55% EF 2C: 55.00 >55% EF BiP: 58.20 >55% Mitral Valve MV Pk E: 0.86 MV PK A: 0.79 MV Decel Time: 211.00 E/A: 1.10 E'Lateral: 11.10 E'Medial: 7.72 E/E' Med: 11.20 E/E' Lat: 7.80 PHT: 62.00 MVA PHT: 3.55 Decel [place]: 4.08 Aortic Valve AoV Pk Lito: 1.60 AoV Mn Lito: 1.08 AoV VTI: 0.32 AoV Pk Grad: 10.00 Aov Mn Grad: 6.00 HILARY Cont.VTI: 3.78 LVOT LVOT Pk Lito: 1.41 LVOT Mn Lito: 0.91 LVOT VTI: 0.29 LVOT Pk Grad: 8.00 LVOT Mn Grad: 4.00 LVOT Diam: 2.30 LVOT Area: 4.15 Diastolic Function MV Pk E: 0.86 MV Pk A: 0.79 E/A: 1.10 E'Medial: 7.72 E/E' Med: 11.20 E' Laterial: 11.10 E/E' Lat: 7.80 Right Ventricle TAPSE (mm): 24.80 TVS' Lito: 14.70 Tricuspid Valve RA Press: 3.00 Great Vessels Aorta Sinus of Valsalva: 4.20 2.0-3.5 cm Ao Asc: 4.40 2.1-3.4 cm Ao Arch: 3.50 Pulmonary Valve PV Pk Lito: 1.38 Peak PV Grad: 8.00 Updated in Other Vendor System with Status of Final Maxim Brenda MD electronically signed on 05/03/2024 11:45:52 AM with status of Final
== END ==
LOC: HO.CARD 14:18
PROVIDERS: PCP Internal Medicine; Visit Provider Internal Medicine Cardiovascular Disease
DX: I48.0 Paroxysmal atrial fibrillation (principal)
CPT/HCPCS: 93306; 93356

== ENCOUNTER → 2024-05-02 14:21 | Outpatient (BNV) | payer BC, SELFPAY | PROVIDERS: PCP Internal Medicine; Visit Provider Internal Medicine Cardiovascular Disease | DX: I48.0 Paroxysmal atrial fibrillation (principal) | CPT/HCPCS: 93306; 93356 ==

== ENCOUNTER 2024-05-20 14:38 | Outpatient (AMB) | payer BC, SELFPAY ==
[2024-05-20 15:18] VITALS: BP 120/80; PULSE 75; BMI 35.0
--- NOTE | 2024-05-20 15:18 | MHC.OFFVIS ---
Vital Signs 05/20/24 15:18 Height 5 ft 11 in Weight 251 lb 5.231 oz BMI 35.0 BP 120/80 Blood Pressure Location Lt brachial Position Sitting Pulse 75 Intake Visit Reasons: 1 yr f/up Intake Note: 1 year follow-up with ekg feeling good [facility] [employer] Required: No Allergies adhesive tape Allergy (Unknown, Verified 04/16/24 15:26) RASH Medication List - Last Reconciled 05/20/24 by Maxim Gutierrez MD albuterol sulfate 90 mcg/actuation 1 inh inhalation QID PRN 30 days ascorbic acid (vitamin C) (Vitamin C) 500 mg PO DAILY cetirizine (Zyrtec) 10 mg PO DAILY 90 days ferrous sulfate (Iron (ferrous sulfate)) 325 mg PO BID 9 days fluticasone propion-salmeterol 250-50 mcg/dose (Advair Diskus) 1 ea inhalation BID losartan 25 mg PO DAILY metoprolol succinate ER 50 mg PO DAILY omeprazole 20 mg PO BID@0630,1630 90 days tiotropium bromide 2.5 mcg/actuation (Spiriva Respimat) 2 puffs PO DAILY HPI Comments Details: Mitchel comes for follow-up. He has been doing well from cardiac perspective. Denies any symptoms exertional chest pain or shortness of breath. Denies any prolonged irregular heartbeat or fast heart rate or palpitations. Takes all his medications. Recent echocardiogram shows normal LV ejection fraction with normal biatrial chamber size with [id number] ascending aortic enlargement at 4.4 cm. He says blood pressure is generally home is very well controlled with systolic blood pressure less than 130 at all times. He does not usually take high salt intake. He remains active. [facility] Medical History Paroxysmal atrial fibrillation Atrial fibrillation with rapid ventricular response COPD (chronic obstructive pulmonary disease) with acute bronchitis GERD (gastroesophageal reflux disease) HTN (hypertension) Iron deficiency anemia Surgical History H/O umbilical hernia repair Family History Father Liver cancer Diabetes mellitus Mother Emphysema, unspecified CVD (cardiovascular disease) Maternal Grandmother No problems noted. Maternal Grandfather No problems noted. Paternal Grandfather No problems noted. Paternal Grandmother No problems noted. Sister No problems noted. 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 Cognitive needs: No Hearing needs: No Vision needs: Yes Review of Systems Const Denies chills, Denies fatigue, Denies fever(s), Denies frequent falls, Denies weakness, Denies weight gain and Denies weight loss ENT Denies dizziness Card Denies chest pain, Denies leg edema, Denies lightheadedness, Denies palpitations, Denies dyspnea, Denies dyspnea on exertion, Denies orthopnea and Denies other (loss of consciousness) Resp Denies cough, Denies dyspnea and Denies dyspnea on exertion GI Denies hematochezia and Denies change in stool character Musc Denies abnormal gait, Denies muscle weakness, Denies numbness, Denies radiating pain into limb and Denies tingling Neuro Denies abnormal gait, Denies dizziness, Denies frequent falls, Denies numbness, Denies tingling and Denies weakness Endo Denies fatigue and Denies palpitations Physical Exam Vital Signs: Last Vital Signs Pulse 75 05/20/24 15:18 BP 120/80 05/20/24 15:18 BMI result Body Mass Index 35.0 Const General: cooperative, comfortable and no acute distress Orientation/consciousness: patient oriented x3 Neck Neck: Yes normal visual inspection and Yes no JVD Resp Effort & Inspection: normal respiratory effort Auscultation: clear to auscultation bilaterally, no crackles, no rales, no rhonchi, no wheezes and diminished lung sounds Cardio Jugular venous distension: no JVD Rate: regular rate Rhythm: regular rhythm Heart sounds: S1 normal heart sound present, S2 normal heart sound present, no gallops, no murmurs and no rubs Peripheral pulses: Peripheral pulses 2+ throughout GI Inspection: Yes normal to inspection Skin General skin exam: no rashes or lesions noted Neuro General: patient oriented x3 Extrem General: Yes normal to inspection, No no pedal edema and No calf tenderness Office Procedures EKG Details: EKG shows normal sinus rhythm with right bundle-branch block 28858-[id number], Complete Assessment & Plan Assessment & Plan (1) Paroxysmal atrial fibrillation: Comment: Due to acute medical illness with pneumonia. Converted to sinus rhythm on amiodarone and metoprolol. Subsequently amiodarone was discontinued. Code(s): I48.0 - Paroxysmal atrial fibrillation Category: Medical Plan: Paroxysmal atrial fibrillation without any obvious clinical recurrence. This was in the setting of acute medical illness. Although he remains at risk given his history of hypertension. His biatrial chamber size are within normal limits. He has no obvious clinical recurrence of it. Currently at this point time I would continue with management and clinical observation. Continue metoprolol therapy. Avoidance of stimulants was discussed. If he has recurrent atrial fibrillation will need to consider Watchman device as he has recurrent bleeding issues and significant anemia requiring iron therapy. This was discussed with him. He understands agrees. No indication for antiarrhythmic drug therapy at this point time. (2) Thoracic aortic aneurysm: Code(s): I71.20 - Thoracic aortic aneurysm, without rupture, unspecified Category: Medical Plan: [id number]-[id number] thoracic aortic aneurysm without any obvious clinical symptoms. Pathophysiology of aortic aneurysm was discussed. No interventions required and needs annual echocardiographic follow-up. This was discussed with him. Advised to avoid sudden strenuous isometric exercise. Continue aggressive blood pressure control which is currently well optimized. Will follow up in the clinic in 1 year's goes to the p.r.n.. Thank you for allowing me to partake in his carel Orders: Orders CA echo transthoracic complete 1 Year I71.20 - Thoracic aortic aneurysm, without rupture, unspecified Coding Level of Care Code Est Pt Level 4 (43514) Complex EM visit Add On G2211 Diagnoses Paroxysmal atrial fibrillation I48.0 Thoracic aortic aneurysm I71.20 CPT Codes EKG - CPT: 66162-[id number], Complete ([id number])
== END 2024-05-20 15:38 | disposition home or self-care (01) ==
PROVIDERS: PCP Internal Medicine; Visit Provider Internal Medicine Cardiovascular Disease
DX: I48.0 Paroxysmal atrial fibrillation (principal); I71.20 Thoracic aortic aneurysm, without rupture, unspecified
CPT/HCPCS: 93010; 99214

== ENCOUNTER → 2024-05-20 14:38 | Outpatient (BNVA) | payer BC, SELFPAY | PROVIDERS: PCP Internal Medicine; Visit Provider Internal Medicine Cardiovascular Disease | DX: I48.0 Paroxysmal atrial fibrillation (principal); I71.20 Thoracic aortic aneurysm, without rupture, unspecified; Z79.899 Other long term (current) drug therapy | CPT/HCPCS: 93005 ==

== ENCOUNTER 2024-06-30 15:08 | Outpatient (REF) | payer BC, SELFPAY ==
[2024-06-30 15:35] LABS: MANUAL DIFF FLAG NO
[2024-06-30 15:56] LABS: Basophils Absolute Auto 0.1 X10*3/uL (0.0-0.2); Basophils Percent Auto 1.3 % (0-2); Eosinophils Absolute Auto 0.2 X10*3/uL (0.0-0.4); Eosinophils Percent Auto 2.7 % (0-4); Hematocrit 42.2 % (42.0-52.0); Hemoglobin 13.4 g/dl (14.0-18.0); Imm Gran Abs Auto 0.03 X10*3/uL (0.00-0.03); Imm Gran Pct Auto 0.4 % (0.0-0.4); Lymphocytes Absolute Auto 1.6 X10*3/uL (1.2-4.9); Lymphocytes Percent Auto 22.4 % (20-40); Mean Corpuscular HGB Conc 31.8 g/dl (31.0-36.0); Mean Corpuscular Hemoglobin 29.6 pg (27.0-33.0); Mean Corpuscular Volume 93.2 fL (80.0-98.0); Mean Platelet Volume 9.2 fL (9.4-12.4); Monocytes Absolute Auto 0.6 X10*3/uL (0.1-1.2); Monocytes Percent Auto 8.2 % (2-11); Neutrophils Absolute Auto 4.6 x10*3/uL (2.0-8.3); Platelet Count 195 X10*3/uL (160-400); Red Blood Count 4.53 X10*6/uL (4.60-5.80); White Blood Count 7.1 X10*3/uL (4.8-10.8)
[2024-06-30 16:16] LABS: Alanine Aminotransferase 17 U/L (0-40); Albumin Level 4.2 g/dL (3.5-5.0); Anion Gap 11 (12-20); Aspartate Amino Transferase 32 U/L (5-37); Bilirubin Total 0.4 mg/dL (0.0-1.0); Blood Urea Nitrogen 19 mg/dL (9-16); Calcium 8.7 mg/dL (8.4-10.2); Carbon Dioxide 27 mmol/L (22-29); Chloride 110 mmol/L (96-108); Cholesterol 129 mg/dL (<200); Estimated Glomerular Filt Rate > 60; Glucose Fasting 90 mg/dL (60-99); HDL Cholesterol 39 mg/dL (>40); LDL Cholesterol Calculated 76 mg/dL (<100); Potassium 3.9 mmol/L (3.3-5.1); Sodium 144 mmol/L (135-145); Total Protein 6.5 g/dL (6.5-8.0); Triglycerides 70 mg/dL (<150)
[2024-06-30 16:48] LABS: Alkaline Phosphatase 65 U/L (39-117)
[2024-07-03 14:03] LABS: Vitamin D 25-OH, D2 <4 ng/mL; Vitamin D 25-OH, D3 20 ng/mL; Vitamin D 25-OH, Total 20 ng/mL (30-100)
== END 2024-06-30 15:09 | disposition home or self-care (01) ==
LOC: HO.LAB 15:08
PROVIDERS: PCP Internal Medicine; Visit Provider Internal Medicine
DX: Z00.01 Encounter for general adult medical examination with abnormal findings (principal); I48.0 Paroxysmal atrial fibrillation; J44.0 Chronic obstructive pulmonary disease with (acute) lower respiratory infection; J20.9 Acute bronchitis, unspecified; E66.01 Morbid (severe) obesity due to excess calories; Z68.35 Body mass index [BMI] 35.0-35.9, adult; K21.9 Gastro-esophageal reflux disease without esophagitis; I10 Essential (primary) hypertension; D50.0 Iron deficiency anemia secondary to blood loss (chronic)
CPT/HCPCS: 36415; 80053; 80061; 82306; 84443; 85025

== ENCOUNTER 2024-10-28 14:59 | Outpatient (AMB) | payer BC, SELFPAY ==
[2024-10-28 15:09] VITALS: BP 136/74; PULSE 74; O2SAT 92; BMI 36.3
--- NOTE | 2024-10-28 15:09 | A.OFFPC_ITS ---
Vital Signs 10/28/24 15:09 Height 5 ft 11 in Weight 260 lb BMI 36.3 BP 136/74 Blood Pressure Location Rt brachial Position Sitting Pulse 74 Pulse Source Pulse Oximeter Pulse Oximetry (%) 92 Oxygen Delivery Method Room Air Intake Visit Reasons: 6 MON FUP/Discuss Cologuard (pt requesting) Allergies adhesive tape Allergy (Unknown, Verified 10/28/24 15:11) RASH Medication List - Last Reconciled 10/28/24 by Salvador Sandoval MD albuterol sulfate 90 mcg/actuation 1 inh inhalation QID PRN 30 days ascorbic acid (vitamin C) (Vitamin C) 500 mg PO DAILY cetirizine (Zyrtec) 10 mg PO DAILY 90 days ferrous sulfate (Iron (ferrous sulfate)) 325 mg PO BID 9 days fluticasone propion-salmeterol 250-50 mcg/dose (Advair Diskus) 1 ea inhalation BID losartan 25 mg PO DAILY metoprolol succinate ER 50 mg PO DAILY omeprazole 20 mg PO BID@0630,1630 90 days tiotropium bromide 2.5 mcg/actuation (Spiriva Respimat) 2 puffs PO DAILY Tobacco use date assessed: 10/28/24 Fall risk assessment: No Falls in past year Last assessed Fall Risk: 10/28/24 Dental Screening Dental Screen Date: 10/28/24 Did you have a dental visit in the last 12 months?: Yes Did you have a dental problem in the last 6 months where you did not have access to dental care?: No Was dental information given to patient?: Patient has dentist HPI 6 MON FUP/Discuss [place] (pt requesting) HPI Details - The patient is a 63-year-old male came in for follow up presenting with muscle cramps - Muscle cramps primarily affect the leg s. The patient notes these cramps have worsened over the last month. - The patient experiences cramps at nigh t, which woke him up. - The cramps can be triggered by walking , limiting his walking distance due to pain. - The cramps have been progressively get ting worse. - History of hypertension, currently man aged with Losartan 25 mg and Metoprolol 50 mg. - Recent blood pressure recorded as 130/ 70 mmHg at home. - Past laboratory tests in June showe d hemoglobin at 13.44 , Electrolytes and kidney function were also normal at that time. - The patient reports rare soda consumpt ion and maintains adequate water intake, albeit not without encouragement. He is seeing hematology every 3 months for iron-deficiency anemia Established with Cardiology for the management paroxysmal atrial fibrillation COPD/asthma stable with Advair and Spiriva. Patient is also on omeprazole 20 mg for chronic GERD symptoms which is stable with medicine. BMI is elevated patient is trying to lose weight Patient Instructions - Begin taking vitamin D and magnesium s upplements as discussed. - Attend blood test appointment for comp lete blood count and electrolytes as scheduled, no need to fast. - Return for follow-up to discuss test r esults and if symptoms worsen. - Continue current medications as prescr ibed. - legs symptoms get worse you will need evaluation by vascular specialist Review of Systems - General: No fever no chills - Neurological: No headaches no dizziness - Ear nose throat: No sore throat no hearing difficulty no ear pain - Cardiovascular: No syncope, no chest pain, no palpitations - Gastrointestinal: No nausea vomiting or diarrhea - Endocrine: No polyuria polydipsia no heat intolerance - Genitourinary: No dysuria , no blood in urine Physical Exam General: No acute distress HEENT: No acute findings Neck: Supple Respiratory system: Able to talk in full sentences, no audible wheeze Cardiovascular: S1-S2 regular in rate and rhythm Gastrointestinal: No pain Extremities: Experiencing cramps in legs, pain when walking TILE SHADER: Alert awake oriented x3 motor sensory intact Skin: Normal turgor [facility] Medical History Paroxysmal atrial fibrillation Atrial fibrillation with rapid ventricular response COPD (chronic obstructive pulmonary disease) with acute bronchitis GERD (gastroesophageal reflux disease) HTN (hypertension) Iron deficiency anemia Surgical History H/O umbilical hernia repair Family History Father Liver cancer Diabetes mellitus Mother Emphysema, unspecified CVD (cardiovascular disease) Maternal Grandmother No problems noted. Maternal Grandfather No problems noted. Paternal Grandfather No problems noted. Paternal Grandmother No problems noted. Sister No problems noted. 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 1. Little interest or pleasure in doing things: not at all 2. Feeling down, depressed, or hopeless: not at all 3. Trouble falling or staying asleep, or sleeping too much: not at all 4. Feeling tired or having little energy: not at all 5. Poor appetite or overeating: not at all 6. Feeling bad about yourself - or that you are a failure or have let yourself or your family down: not at all 7. Trouble concentrating on things, such as reading the newspaper or watching television: not at all 8. Moving or speaking so slowly that other people could have noticed. Or the opposite - being so fidgety or restless that you have been moving around a lot more than usual: not at all 9. Thoughts that you would be better off or of hurting yourself in some way: not at all Total score: 0 Depression Screening Interpretation: Negative Depression Screening Done: Yes 28551 - PHQ-9 Billing: Yes Source: Developed by Drs. Noble Sofia, Kecia Schumacher, Bucky Aguillon and colleagues, with an educational tim from [employer]. Thrive Questionnaire Date Thrive assessed: 10/28/24 I am a: Patient What is your living situation today?: I have a steady place to live Within the past 12 months, did the food you bought not last and you didn't have the money to get more?: Never true Within the past 12 months, did you worry whether your food would run out before you got money to buy more?: Never true Do you have trouble paying for medicines?: No Do you have trouble getting transportation to medical appointments?: No Do you have trouble paying your heating and electricity bill?: No Do you have trouble taking care of your child, family member or friend?: No Do you have trouble with day-to-day activities such as bathing, preparing meals, shopping, managing finances, etc.?: No Are you currently unemployed and looking for a job?: No Are you interested in more education?: No Please select the resources that you would like help with: None Currently or been in a relationship where the following occur: No concerns reported THRIVE Score: 0 AUDIT C Alcohol Use Questionnaire (AUDIT-C) 1. How often do you have a drink containing alcohol?: 2-3 times a week 2. How many drinks containing alcohol do you have on a typical day when you are drinking?: 1 or 2 3. How often do you have six or more drinks on one occasion?: Never Total Score: 3 Score Reviewed/Action Taken: Yes MALISSA-7 AMB Questionnaire MALISSA-7 Date MALISSA - 7 assessed: 10/28/24 Feeling nervous, anxious, or on edge: 0 = Not at all Not being able to stop or control worryin = Not at all Worrying too much about different things: 0 = Not at all Trouble relaxin = Not at all Being so restless that it is hard to sit still: 0 = Not at all Becoming easily annoyed or irritable: 0 = Not at all Feeling afraid as if something awful might happen: 0 = Not at all Total MALISSA-7 score (0-4 normal; 5-9 mild; 10-14 moderate; 15-21 severe): 0 Source: Developed by Drs. Noble Sofia, Kecia Schumacher, Bucky Aguillon and colleagues, with an educational tim from [employer]. MALISSA-7 Assessment Billing MALISSA-7 Assessment Tool: MALISSA-7 Assessment 01232 Physical exam (Primary Care) Vital Signs: Last Vital Signs Pulse 74 10/28/24 15:09 BP 136/74 10/28/24 15:09 Pulse Ox 92 10/28/24 15:09 Oxygen Delivery Method Room Air 10/28/24 15:09 BMI result Body Mass Index 36.3 Tobacco/Smoking Status: Tobacco use Status Tobacco use date assessed 10/28/24 10/28/24 15:12 Patient Tobacco Use Status Former Tobacco user 10/28/24 15:12 Tobacco use type Cigarette 10/28/24 15:12 e-Cigarette/Vaping Use Never Used 10/28/24 15:12 PHQ-9: PHQ-9 Score PHQ-9: Total score 0 10/28/24 15:12 Depression Screening Interpretation: Negative Thrive Assessment: Date of Thrive Assessment Date Thrive assessed 10/28/24 10/28/24 15:12 Currently or been in a relationship where the following occur: No concerns reported Coding Level of Care Code Est Pt Level 4 (96177) Diagnoses Hypertension, essential I10 Iron deficiency anemia due to chronic blood loss D50.0 Iron deficiency anemia type: chronic blood loss Gastroesophageal reflux disease without esophagitis K21.9 Esophagitis presence: without esophagitis COPD (chronic obstructive pulmonary disease) with acute bronchitis J44.0; J20.9 Class 2 severe obesity due to excess calories with serious comorbidity and body mass index (BMI) of 35.0 to 35.9 in adult E66.01; Z68.35 Obesity classification: adult class 2 (BMI 35 - 39.9) Serious obesity comorbidity presence: with serious comorbidity Body mass index: BMI 35.0-35.9 Paroxysmal atrial fibrillation I48.0 Leg cramps R25.2 Claudication of both lower extremities I73.9 Additional Codes MALISSA-7 Assessment Billing - MALISSA-7 Assessment Tool: MALISSA-7 Assessment 94630 ([id number]) PHQ-9 - 41935 - PHQ-9 Billing: Yes ([id number]) Assessment & Plan Assessment & Plan (1) Hypertension, essential: Code(s): I10 - Essential (primary) hypertension Category: Medical (2) Iron deficiency anemia: Code(s): D50.9 - Iron deficiency anemia, unspecified Category: Medical Qualifiers: Iron deficiency anemia type: chronic blood loss Qualified Code(s): D50.0 - Iron deficiency anemia secondary to blood loss (chronic) (3) GERD (gastroesophageal reflux disease): Code(s): K21.9 - Gastro-esophageal reflux disease without esophagitis Category: Medical Qualifiers: Esophagitis presence: without esophagitis Qualified Code(s): K21.9 - Gastro-esophageal reflux disease without esophagitis (4) COPD (chronic obstructive pulmonary disease) with acute bronchitis: Code(s): J44.0 - Chronic obstructive pulmonary disease with (acute) lower respiratory infection; J20.9 - Acute bronchitis, unspecified Category: Medical (5) Obesity due to excess calories: Code(s): E66.09 - Other obesity due to excess calories Category: Medical Qualifiers: Obesity classification: adult class 2 (BMI 35 - 39.9) Serious obesity comorbidity presence: with serious comorbidity Body mass index: BMI 35.0-35.9 Qualified Code(s): E66.01 - Morbid (severe) obesity due to excess calories; Z68.35 - Body mass index [BMI] 35.0-35.9, adult (6) Paroxysmal atrial fibrillation: Comment: Due to acute medical illness with pneumonia. Converted to sinus rhythm on amiodarone and metoprolol. Subsequently amiodarone was discontinued. Code(s): I48.0 - Paroxysmal atrial fibrillation Category: Medical (7) Leg cramps: Code(s): R25.2 - Cramp and spasm Category: Medical (8) Claudication of both lower extremities: Code(s): I73.9 - Peripheral vascular disease, unspecified Category: Medical Plan - The patient is a 63-year-old male came in for follow up presenting with muscle cramps - Muscle cramps primarily affect the legs. The patient notes these cramps have worsened over the last month. - The patient experiences cramps at night, which woke him up. - The cramps can be triggered by walking, limiting his walking distance due to pain. - The cramps have been progressively getting worse. - History of hypertension, currently managed with Losartan 25 mg and Metoprolol 50 mg. - Recent blood pressure recorded as 130/70 mmHg at home. - Past laboratory tests in June showed hemoglobin at 13.44 , Electrolytes and kidney function were also normal at that time. - The patient reports rare soda consumption and maintains adequate water intake, albeit not without encouragement. He is seeing hematology every 3 months for iron-deficiency anemia Established with Cardiology for the management paroxysmal atrial fibrillation and thoracic aortic aneurysm COPD/asthma stable with Advair and Spiriva. Patient is also on omeprazole 20 mg for chronic GERD symptoms which is stable with medicine. BMI is elevated patient is trying to lose weight Patient Instructions - Begin taking vitamin D and magnesium supplements as discussed. - Attend blood test appointment for complete blood count and electrolytes as scheduled, no need to fast. - Return for follow-up to discuss test results and if symptoms worsen. - Continue current medications as prescribed. - legs symptoms get worse you will need evaluation by vascular specialist Orders: Orders Complete Blood Count Auto Diff Today D50.0 - Iron deficiency anemia secondary to blood loss (chronic), E66.01 - Morbid (severe) obesity due to excess calorie s, I10 - Essential (primary) hypertension, I48.0 - Paroxysmal atrial fibrillation, I73.9 - Peripheral vascular disease, unspecified, J20.9 - Acute bronchitis, unspecified, J44.0 - Chronic obstructive pulmonary disease with (acute) lower respiratory infection, K21.9 - Gastro-esophageal reflux disease without esophagitis, R25.2 - Cramp and spasm, Z68.35 - Body mass index [BMI] 35.0-35.9, adult Comprehensive Met. Panel Today D50.0 - Iron deficiency anemia secondary to blood loss (chronic), E66.01 - Morbid (severe) obesity due to excess calories, I10 - Essential (primary) hypertension, I48.0 - Paroxysmal atrial fibrillation, I73.9 - Peripheral vascular disease, unspecified, J20.9 - Acute bronchitis, unspecified, J44.0 - Chronic obstructive pulmonary disease with (acute) lower respiratory infection, K21.9 - Gastro-esophageal reflux disease without esophagitis, R25.2 - Cramp and spasm, Z68.35 - Body mass index [BMI] 35.0-35.9, adult TSH reflex Free T4 Today D50.0 - Iron deficiency anemia secondary to blood loss (chronic), E66.01 - Morbid (severe) obesity due to excess calories, I10 - Essential (primary) hypertension, I48.0 - Paroxysmal atrial fibrillation, I73.9 - Peripheral vascular disease, unspecified, J20.9 - Acute bronchitis, unspecified, J44.0 - Chronic obstructive pulmonary disease with (acute) lower respiratory infection, K21.9 - Gastro-esophageal reflux disease without esophagitis, R25.2 - Cramp and spasm, Z68.35 - Body mass index [BMI] 35.0-35.9, adult Ferritin Today D50.0 - Iron deficiency anemia secondary to blood loss (chronic), E66.01 - Morbid (severe) obesity due to excess calories, I10 - Essential (primary) hypertension, I48.0 - Paroxysmal atrial fibrillation, I73.9 - Peripheral vascular disease, unspecified, J20.9 - Acute bronchitis, unspecified, J44.0 - Chronic obstructive pulmonary disease with (acute) lower respiratory infection, K21.9 - Gastro-esophageal reflux disease without esophagitis, R25.2 - Cramp and spasm, Z68.35 - Body mass index [BMI] 35.0-35.9, adult Magnesium Today D50.0 - Iron deficiency anemia secondary to blood loss (chronic), E66.01 - Morbid (severe) obesity due to excess calories, I10 - Essential (primary) hypertension, I48.0 - Paroxysmal atrial fibrillation, I73.9 - Peripheral vascular disease, unspecified, J20.9 - Acute bronchitis, unspecified, J44.0 - Chronic obstructive pulmonary disease with (acute) lower respiratory infection, K21.9 - Gastro-esophageal reflux disease without esophagitis, R25.2 - Cramp and spasm, Z68.35 - Body mass index [BMI] 35.0-35.9, adult Vitamin D 25-OH (D2 and D3) Today D50.0 - Iron deficiency anemia secondary to blood loss (chronic), E66.01 - Morbid (severe) obesity due to excess calories, I10 - Essential (primary) hypertension, I48.0 - Paroxysmal atrial fibrillation, I73.9 - Peripheral vascular disease, unspecified, J20.9 - Acute bronchitis, unspecified, J44.0 - Chronic obstructive pulmonary disease with (acute) lower respiratory infection, K21.9 - Gastro-esophageal reflux disease without esophagitis, R25.2 - Cramp and spasm, Z68.35 - Body mass index [BMI] 35.0-35.9, adult Vitamin B12 Today D50.0 - Iron deficiency anemia secondary to blood loss (chronic), E66.01 - Morbid (severe) obesity due to excess calories, I10 - Essential (primary) hypertension, I48.0 - Paroxysmal atrial fibrillation, I73.9 - Peripheral vascular disease, unspecified, J20.9 - Acute bronchitis, unspecified, J44.0 - Chronic obstructive pulmonary disease with (acute) lower respiratory infection, K21.9 - Gastro-esophageal reflux disease without esophagitis, R25.2 - Cramp and spasm, Z68.35 - Body mass index [BMI] 35.0-35.9, adult Medications: New magnesium glycinate 100 mg PO .QHS 90 days 90 caps 3RF
== END 2024-10-28 16:32 | disposition home or self-care (01) ==
LOC: HO.HMCC 15:01
PROVIDERS: PCP Internal Medicine; Visit Provider Internal Medicine
DX: J44.0 Chronic obstructive pulmonary disease with (acute) lower respiratory infection (principal); E66.01 Morbid (severe) obesity due to excess calories; Z68.35 Body mass index [BMI] 35.0-35.9, adult; I48.0 Paroxysmal atrial fibrillation; I10 Essential (primary) hypertension; D50.0 Iron deficiency anemia secondary to blood loss (chronic); K21.9 Gastro-esophageal reflux disease without esophagitis; J20.9 Acute bronchitis, unspecified; R25.2 Cramp and spasm; I73.9 Peripheral vascular disease, unspecified

== ENCOUNTER → 2024-10-28 14:59 | Outpatient (BNVA) | payer BC, SELFPAY | PROVIDERS: PCP Internal Medicine; Visit Provider Internal Medicine | DX: I10 Essential (primary) hypertension (principal); D50.0 Iron deficiency anemia secondary to blood loss (chronic); K21.9 Gastro-esophageal reflux disease without esophagitis; J44.0 Chronic obstructive pulmonary disease with (acute) lower respiratory infection; J20.9 Acute bronchitis, unspecified; E66.01 Morbid (severe) obesity due to excess calories; Z68.35 Body mass index [BMI] 35.0-35.9, adult; I48.0 Paroxysmal atrial fibrillation; R25.2 Cramp and spasm; I73.9 Peripheral vascular disease, unspecified; Z79.899 Other long term (current) drug therapy | CPT/HCPCS: 96127 ==

== ENCOUNTER 2024-10-29 14:22 | Outpatient (REF) | payer BC, SELFPAY ==
[2024-10-29 16:14] LABS: MANUAL DIFF FLAG NO
[2024-10-29 16:22] LABS: Basophils Absolute Auto 0.1 X10*3/uL (0.0-0.2); Basophils Percent Auto 1.5 % (0-2); Eosinophils Absolute Auto 0.2 X10*3/uL (0.0-0.4); Eosinophils Percent Auto 2.7 % (0-4); Hematocrit 43.2 % (42.0-52.0); Hemoglobin 13.5 g/dl (14.0-18.0); Imm Gran Abs Auto 0.03 X10*3/uL (0.00-0.03); Imm Gran Pct Auto 0.4 % (0.0-0.4); Lymphocytes Absolute Auto 1.3 X10*3/uL (1.2-4.9); Lymphocytes Percent Auto 19.9 % (20-40); Mean Corpuscular HGB Conc 31.3 g/dl (31.0-36.0); Mean Corpuscular Volume 92.9 fL (80.0-98.0); Mean Platelet Volume 9.3 fL (9.4-12.4); Monocytes Absolute Auto 0.6 X10*3/uL (0.1-1.2); Monocytes Percent Auto 8.6 % (2-11); Neutrophils Absolute Auto 4.5 x10*3/uL (2.0-8.3); Neutrophils Percent Auto 66.9 % (45-73); Platelet Count 240 X10*3/uL (160-400); Red Blood Count 4.65 X10*6/uL (4.60-5.80); Red Cell Distribution Width 14.4 % (11.0-16.0); White Blood Count 6.7 X10*3/uL (4.8-10.8)
[2024-10-29 17:03] LABS: Alanine Aminotransferase 22 U/L (0-40); Albumin Level 4.2 g/dL (3.5-5.0); Anion Gap 13 (12-20); Aspartate Amino Transferase 32 U/L (5-37); Bilirubin Total 0.4 mg/dL (0.0-1.0); Blood Urea Nitrogen 16 mg/dL (9-16); Calcium 9.2 mg/dL (8.4-10.2); Carbon Dioxide 27 mmol/L (22-29); Chloride 108 mmol/L (96-108); Estimated Glomerular Filt Rate > 60; Glucose Random 82 mg/dL (60-115); Magnesium 2.1 mg/dL (1.6-2.6); Sodium 144 mmol/L (135-145); Total Protein 6.5 g/dL (6.5-8.0)
[2024-10-29 17:13] LABS: Alkaline Phosphatase 71 U/L (39-117); Ferritin 31 ng/mL (20-250); TSH reflex Free T4 2.73 uIU/mL (0.32-4.0)
[2024-10-29 17:15] LABS: Vitamin B12 356 pg/mL (200-900)
[2024-11-03 12:29] LABS: Vitamin D 25-OH, D2 <4 ng/mL; Vitamin D 25-OH, D3 17 ng/mL; Vitamin D 25-OH, Total 17 ng/mL (30-100)
== END 2024-10-29 14:23 | disposition home or self-care (01) ==
LOC: HO.HMGCLDS 14:22
PROVIDERS: PCP Internal Medicine; Visit Provider Internal Medicine
DX: I10 Essential (primary) hypertension (principal); D50.0 Iron deficiency anemia secondary to blood loss (chronic); K21.9 Gastro-esophageal reflux disease without esophagitis; E66.01 Morbid (severe) obesity due to excess calories; Z68.35 Body mass index [BMI] 35.0-35.9, adult; J44.0 Chronic obstructive pulmonary disease with (acute) lower respiratory infection; J20.9 Acute bronchitis, unspecified; I48.0 Paroxysmal atrial fibrillation; R25.2 Cramp and spasm; I73.9 Peripheral vascular disease, unspecified
CPT/HCPCS: 36415; 80053; 82306; 82607; 82728; 83735; 84443; 85025

== ENCOUNTER 2025-04-22 15:12 | Outpatient (AMB) | payer BC, SELFPAY ==
[2025-04-22 15:24] VITALS: BP 136/76; PULSE 65; RESP 16; TEMP 36.7; O2SAT 93; BMI 34.9
--- NOTE | 2025-04-22 15:24 | A.OFFPC_ITS ---
Vital Signs 04/22/25 15:24 Height 5 ft 11 in Weight 250 lb 2 oz BMI 34.9 BP 136/76 Blood Pressure Location Rt brachial Position Sitting Respiration 16 Pulse 65 Pulse Source Pulse Oximeter Temp 98.1 F Temp Source Oral Pulse Oximetry (%) 93 Oxygen Delivery Method Room Air Intake Visit Reasons: PE Allergies adhesive tape Allergy (Unknown, Verified 10/28/24 15:11) RASH Medication List - Last Reconciled 04/22/25 by Salvador Sandoval MD albuterol sulfate 90 mcg/actuation 1 inh inhalation QID PRN 30 days ascorbic acid (vitamin C) (Vitamin C) 500 mg PO DAILY cetirizine (Zyrtec) 10 mg PO DAILY 90 days ferrous sulfate (Iron (ferrous sulfate)) 325 mg PO BID 9 days fluticasone propion-salmeterol 250-50 mcg/dose (Advair Diskus) 1 ea inhalation BID losartan 25 mg PO DAILY magnesium glycinate 100 mg PO .QHS 90 days metoprolol succinate ER 50 mg PO DAILY omeprazole 20 mg PO BID@0630,1630 90 days tiotropium bromide 2.5 mcg/actuation (Spiriva Respimat) 2 puffs PO DAILY Tobacco use date assessed: 10/28/24 Dental Screening Dental Screen Date: 10/28/24 HPI PE HPI Details History of Present Illness The patient is a 64-year-old male presenting for a physical exam. Iron Deficiency Anemia: - The patient has a history of iron defi ciency anemia, which he states began after a prior colonoscopy that resulted in bleeding. - He has not required iron infusions for the past two years and his hemoglobin has been stable. - He currently takes oral iron supplemen ts with vitamin C. - The patient has been followed by an on cologist for this condition but prefers to have his blood work and monitoring done at this office for convenience, which was agreed upon. Atrial Fibrillation: - The patient reports his atrial fibrill ation seems fine. - He is followed by a pressure testing technician aftab peters for this and his thoracic aortic aneurysm. - He has an upcoming EKG scheduled for n ext month, with a pressure testing technician follow-up on June 22. - He takes metoprolol for this condition . Thoracic Aortic Aneurysm: - The patient is monitored by his cardio logist for a thoracic aortic aneurysm. - He has an echocardiogram scheduled for next month. Preventative Care: - The patient is due for a colonoscopy b ut has not had one in a while, expressing reluctance due to a past experience with bleeding and subsequent anemia. - He has requested an at-home screening test instead, which will be ordered. - He received the pneumonia vaccine at [facility] and reports having had the flu recently. Muscle Cramps: - The patient reports experiencing occas ional muscle cramps. - He states that taking magnesium, as pr escribed, has helped alleviate the symptoms. Health Maintenance - Colon cancer screening: The patient is due and declined a repeat colonoscopy due to a past adverse event. An at-home test will be ordered per his preference. - Immunizations: The patient has receive d a pneumonia vaccine at [facility] and recently had influenza. - Cardiovascular monitoring: He has an u pcoming EKG and echocardiogram next month, with a follow-up appointment with his pressure testing technician. - Laboratory monitoring: Fasting labs we re ordered for the current visit. Blood tests are to be performed every 4 months to monitor his chronic conditions, part icularly hemoglobin levels. Bradley of Care - The patient follows with a cardiologis t annually for his atrial fibrillation and thoracic aortic aneurysm. - He has been seeing an oncologist for a nemia monitoring but will transition this care to this office. Medications - Allergyes taking med PRN - Iron supplement for anemia. - Losartan for hypertension. - Metoprolol for atrial fibrillation and hypertension. - Omeprazole for GERD. - Spiriva (tiotropium) for COPD. - Vitamin C, taken with iron for absorpt ion. - Magnesium for muscle cramps. - He is not currently taking Advair. Patient Instructions - You have an order for blood work. For this first test, you need to fast for 8 to 10 hours before going to the walk-in lab. - You will need to get follow-up blood t ests every four months, but you will not need to fast for those. - A kit for an at-home colon cancer scre ening test will be mailed to you. Please follow the instructions included with the kit. - Continue to see your system configuration specialist once a year and attend your upcoming appointments for an EKG and echocardiogram. - Follow up in this office in four month s. labs are needed before every apt Review of Systems - General: No fever no chills - Neurological: No headaches no dizzin ess - Ear nose throat: No sore throat no hearing difficulty no ear pain - Cardiovascular: No syncope, no chest pain, no palpitations - Gastrointestinal: No nausea vomiting or diarrhea - Endocrine: No polyuria polydipsia no heat intolerance - Genitourinary: No dysuria - Skin: No new complaints Physical Exam General: Cooperative, healthy appearing, comfortable, no acute distress Orientation: Patient oriented x3 Head: Normal to inspection Ears: Within normal limit visually Nose: Normal external nose present Face and sinus: Normal facial exam Eyes: Appearance normal, extraocular movement intact pupils reactive Neck: Normal visual inspection and supple Respiratory: Normal respiratory effort and able to speak in complete sentences. Clear to auscultation, no stridor Cardiovascular: S1 and S2 RRR, no swelling GI: Normal to inspection. Soft to palpation and nontender, no constipation Skin: Turgor normal, no acute findings Neuro: Patient oriented x3, motor sensory intact, balance intact, tandem pass Extremities: Normal to inspection, no swelling, ROM intact . [facility] Medical History Paroxysmal atrial fibrillation Atrial fibrillation with rapid ventricular response COPD (chronic obstructive pulmonary disease) with acute bronchitis GERD (gastroesophageal reflux disease) HTN (hypertension) Iron deficiency anemia Surgical History H/O umbilical hernia repair Family History Father Liver cancer Diabetes mellitus Mother Emphysema, unspecified CVD (cardiovascular disease) Maternal Grandmother No problems noted. Maternal Grandfather No problems noted. Paternal Grandfather No problems noted. Paternal Grandmother No problems noted. Sister No problems noted. 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 Cognitive needs: No Hearing needs: No Vision needs: Yes Questionnaire Thrive Questionnaire Date Thrive assessed: 10/08/24 I am a: Patient What is your living situation today?: I have a steady place to live Within the past 12 months, did the food you bought not last and you didn't have the money to get more?: Never true Within the past 12 months, did you worry whether your food would run out before you got money to buy more?: Never true Do you have trouble paying for medicines?: No Do you have trouble getting transportation to medical appointments?: No Do you have trouble paying your heating and electricity bill?: No Do you have trouble taking care of your child, family member or friend?: No Do you have trouble with day-to-day activities such as bathing, preparing meals, shopping, managing finances, etc.?: No Are you currently unemployed and looking for a job?: No Are you interested in more education?: No Please select the resources that you would like help with: None Currently or been in a relationship where the following occur: No concerns reported THRIVE Score: 0 MALISSA-7 AMB Questionnaire MALISSA-7 Date MALISSA - 7 assessed: 10/28/24 Source: Developed by Drs. Noble Sofia, Kecia Schumacher, Bucky Aguillon and colleagues, with an educational tim from [employer]. Physical exam (Primary Care) Vital Signs: Last Vital Signs Temp 98.1 F 04/22/25 15:24 Pulse 65 04/22/25 15:24 Resp 16 04/22/25 15:24 BP 136/76 04/22/25 15:24 Pulse Ox 93 04/22/25 15:24 Oxygen Delivery Method Room Air 04/22/25 15:24 BMI result Body Mass Index 34.9 Tobacco/Smoking Status: Tobacco use Status Tobacco use date assessed 10/28/24 04/22/25 15:29 Patient Tobacco Use Status Former Tobacco user 04/22/25 15:29 Tobacco use type Cigarette 04/22/25 15:29 e-Cigarette/Vaping Use Never Used 04/22/25 15:29 Thrive Assessment: Date of Thrive Assessment Date Thrive assessed 10/08/24 04/22/25 15:29 Currently or been in a relationship where the following occur: No concerns reported Coding Level of Care Code Est Pt Level 3 (89246) Est Pt Prev Care >65y(59022) Diagnoses Encounter for general adult medical examination with abnormal findings Z00.01 Hypertension, essential I10 COPD (chronic obstructive pulmonary disease) with acute bronchitis J44.0; J20.9 Iron deficiency anemia due to chronic blood loss D50.0 Iron deficiency anemia type: chronic blood loss Gastroesophageal reflux disease without esophagitis K21.9 Esophagitis presence: without esophagitis Seasonal allergic rhinitis due to pollen J30.1 Allergic rhinitis seasonality: seasonal Allergic rhinitis trigger: pollen Class 2 severe obesity due to excess calories with serious comorbidity and body mass index (BMI) of 35.0 to 35.9 in adult E66.01; Z68.35 Body mass index: BMI 35.0-35.9 Obesity classification: adult class 2 (BMI 35 - 39.9) Serious obesity comorbidity presence: with serious comorbidity Aneurysm of ascending aorta without rupture I71.21 Thoracic aorta location: ascending aorta Presence of rupture: without rupture Paroxysmal atrial fibrillation I48.0 Assessment & Plan Assessment & Plan (1) Encounter for general adult medical examination with abnormal findings: Code(s): Z00.01 - Encounter for general adult medical examination with abnormal findings Category: Medical (2) Hypertension, essential: Code(s): I10 - Essential (primary) hypertension Category: Medical (3) COPD (chronic obstructive pulmonary disease) with acute bronchitis: Code(s): J44.0 - Chronic obstructive pulmonary disease with (acute) lower respiratory infection; J20.9 - Acute bronchitis, unspecified Category: Medical (4) Iron deficiency anemia: Code(s): D50.9 - Iron deficiency anemia, unspecified Category: Medical Qualifiers: Iron deficiency anemia type: chronic blood loss Qualified Code(s): D50.0 - Iron deficiency anemia secondary to blood loss (chronic) (5) GERD (gastroesophageal reflux disease): Code(s): K21.9 - Gastro-esophageal reflux disease without esophagitis Category: Medical Qualifiers: Esophagitis presence: without esophagitis Qualified Code(s): K21.9 - Gastro-esophageal reflux disease without esophagitis (6) Allergic rhinitis: Code(s): J30.9 - Allergic rhinitis, unspecified Category: Medical Qualifiers: Allergic rhinitis seasonality: seasonal Allergic rhinitis trigger: pollen Qualified Code(s): J30.1 - Allergic rhinitis due to pollen (7) Obesity due to excess calories: Code(s): E66.09 - Other obesity due to excess calories Category: Medical Qualifiers: Body mass index: BMI 35.0-35.9 Obesity classification: adult class 2 (BMI 35 - 39.9) Serious obesity comorbidity presence: with serious comorbidity Qualified Code(s): E66.01 - Morbid (severe) obesity due to excess calories; Z68.35 - Body mass index [BMI] 35.0-35.9, adult (8) Thoracic aortic aneurysm: Code(s): I71.20 - Thoracic aortic aneurysm, without rupture, unspecified Category: Medical Qualifiers: Thoracic aorta location: ascending aorta Presence of rupture: without rupture Qualified Code(s): I71.21 - Aneurysm of the ascending aorta, without rupture (9) Paroxysmal atrial fibrillation: Comment: Due to acute medical illness with pneumonia. Converted to sinus rhythm on amiodarone and metoprolol. Subsequently amiodarone was discontinued. Code(s): I48.0 - Paroxysmal atrial fibrillation Category: Medical Plan Iron Deficiency Anemia: - The patient has a history of iron deficiency anemia, which he states began after a prior colonoscopy that resulted in bleeding. - He has not required iron infusions for the past two years and his hemoglobin has been stable. - He currently takes oral iron supplements with vitamin C. - The patient has been followed by an oncologist for this condition but prefers to have his blood work and monitoring done at this office for convenience, which was agreed upon. Atrial Fibrillation: - The patient reports his atrial fibrillation seems fine. - He is followed by a pressure testing technician annually for this and his thoracic aortic aneurysm. - He has an upcoming EKG scheduled for next month, with a pressure testing technician follow-up on June 22. - He takes metoprolol for this condition. Thoracic Aortic Aneurysm: - The patient is monitored by his pressure testing technician for a thoracic aortic aneurysm. - He has an echocardiogram scheduled for next month. Preventative Care: - The patient is due for a colonoscopy but has not had one in a while, expressing reluctance due to a past experience with bleeding and subsequent anemia. - He has requested an at-home screening test instead, which will be ordered. - He received the pneumonia vaccine at [facility] and reports having had the flu recently. Muscle Cramps: - The patient reports experiencing occasional muscle cramps. - He states that taking magnesium, as prescribed, has helped alleviate the symptoms. Health Maintenance - Colon cancer screening: The patient is due and declined a repeat colonoscopy due to a past adverse event. An at-home test will be ordered per his preference. - Immunizations: The patient has received a pneumonia vaccine at [facility] and recently had influenza. - Cardiovascular monitoring: He has an upcoming EKG and echocardiogram next month, with a follow-up appointment with his pressure testing technician. - Laboratory monitoring: Fasting labs were ordered for the current visit. Blood tests are to be performed every 4 months to monitor his chronic conditions, particularly hemoglobin levels. Bradley of Care - The patient follows with a pressure testing technician annually for his atrial fibrillation and thoracic aortic aneurysm. - He has been seeing an oncologist for anemia monitoring but will transition this care to this office. Medications - Allergyes taking med PRN - Iron supplement for anemia. - Losartan for hypertension. - Metoprolol for atrial fibrillation and hypertension. - Omeprazole for GERD. - Spiriva (tiotropium) for COPD. - Vitamin C, taken with iron for absorption. - Magnesium for muscle cramps. - He is not currently taking Advair. Patient Instructions - You have an order for blood work. For this first test, you need to fast for 8 to 10 hours before going to the walk-in lab. - You will need to get follow-up blood tests every four months, but you will not need to fast for those. - A kit for an at-home colon cancer screening test will be mailed to you. Please follow the instructions included with the kit. - Continue to see your system configuration specialist once a year and attend your upcoming appointments for an EKG and echocardiogram. - Follow up in this office in four months. labs are needed before every apt . Orders: Orders Lipid Panel Today D50.0 - Iron deficiency anemia secondary to blood loss (chronic), E66.01 - Morbid (severe) obesity due to excess calories, I10 - Essential (primary) hypertension, J20.9 - Acute bronchitis, unspecified, J30.1 - Allergic rhinitis due to pollen, J44.0 - Chronic obstructive pulmonary disease with (acute) lower respiratory infection, K21.9 - Gastro-esophageal reflux di sease without esophagitis, Z00.01 - Encounter for general adult medical examination with abnormal findings, Z68.35 - Body mass index [BMI] 35.0-35.9, adult TSH reflex Free T4 Today D50.0 - Iron deficiency anemia secondary to blood loss (chronic), E66.01 - Morbid (severe) obesity due to excess calories, I10 - Essential (primary) hypertension, J20.9 - Acute bronchitis, unspecified, J30.1 - Allergic rhinitis due to pollen, J44.0 - Chronic obstructive pulmonary disease with (acute) lower respiratory infection, K21.9 - Gastro-esophageal reflux disease without esophagitis, Z00.01 - Encounter for general adult medical examination with abnormal findings, Z68.35 - Body mass index [BMI] 35.0-35.9, adult Vitamin B12 Today D50.0 - Iron deficiency anemia secondary to blood loss (chronic), E66.01 - Morbid (severe) obesity due to excess calories, I10 - Essential (primary) hypertension, J20.9 - Acute bronchitis, unspecified, J30.1 - Allergic rhinitis due to pollen, J44.0 - Chronic obstructive pulmonary disease with (acute) lower respiratory infection, K21.9 - Gastro-esophageal reflux disease without esophagitis, Z00.01 - Encounter for general adult medical examination with abnormal findings, Z68.35 - Body mass index [BMI] 35.0-35.9, adult Ferritin 4 Months D50.0 - Iron deficiency anemia secondary to blood loss (ch ronic), I10 - Essential (primary) hypertension, I48.0 - Paroxysmal atrial fibrillation Complete Blood Count Auto Diff 4 Months D50.0 - Iron deficiency anemia secondary to blood loss (chronic), I10 - Essential (primary) hypertension, I48.0 - Paroxysmal atrial fibrillation Comprehensive Met. Panel 4 Months D50.0 - Iron deficiency anemia secondary to blood loss (chronic), I10 - Essential (primary) hypertension, I48.0 - Paroxysmal atrial fibrillation Complete Blood Count Auto Diff Today D50.0 - Iron deficiency anemia secondary to blood loss (chronic), E66.01 - Morbid (severe) obesity due to excess calories, I10 - Essential (primary) hypertension, J20.9 - Acute bronchitis, unspecified, J30.1 - Allergic rhinitis due to pollen, J44.0 - Chronic obstructive pulmonary disease with (acute) lower respiratory infection, K21.9 - Gastro-esophageal reflux disease without esophagitis, Z00.01 - Encounter for general adult medical examination with abnormal findings, Z68.35 - Body mass index [BMI] 35.0-35.9, adult Comprehensive [place]. Panel Fast Today D50.0 - Iron deficiency anemia secondary to blood loss (chronic), E66.01 - Morbid (severe) obesity due to excess calories, I10 - Essential (primary) hypertension, J20.9 - Acute bronchitis, unspecified, J30.1 - Allergic rhinitis due to pollen, J44.0 - Chronic obstructive pulmonary disease with (acute) lower respiratory infection, K21.9 - Gastro-esophageal reflux disease without esophagitis, Z00.01 - Encounter for general adult medical examination with abnormal findings, Z68.35 - Body mass index [BMI] 35.0-35.9, adult Ferritin Today D50.0 - Iron deficiency anemia secondary to blood loss (chronic), E66.01 - Morbid (severe) obesity due to excess calories, I10 - Essential (primary) hypertension, J20.9 - Acute bronchitis, unspecified, J30.1 - Allergic rhinitis due to pollen, J44.0 - Chronic obstructive pulmonary disease with (acute) lower respiratory infection, K21.9 - Gastro-esophageal reflux disease without esophagitis, Z00.01 - Encounter for general adult medical examination with abnormal findings, Z68.35 - Body mass index [BMI] 35.0-35.9, adult Vitamin D 25-OH (D2 and D3) Today D50.0 - Iron deficiency anemia secondary to blood loss (chronic), E66.01 - Morbid (severe) obesity due to excess calories, I10 - Essential (primary) hypertension, J20.9 - Acute bronchitis, unspecified, J30.1 - Allergic rhinitis due to pollen, J44.0 - Chronic obstructive pulmonary disease with (acute) lower respiratory infection, K21.9 - Gastro-esophageal reflux disease without esophagitis, Z00.01 - Encounter for general adult medical examination with abnormal findings, Z68.35 - Body mass index [BMI] 35.0-35.9, adult Referrals Cologuard Test Z12.11 - Encounter for screening for malignant neoplasm of colon, Z12.12 - Encounter for screening for malignant neoplasm of rectum
== END 2025-04-22 15:49 | disposition home or self-care (01) ==
PROVIDERS: PCP Internal Medicine; Visit Provider Internal Medicine
DX: Z00.00 Encounter for general adult medical examination without abnormal findings (principal); J44.0 Chronic obstructive pulmonary disease with (acute) lower respiratory infection; E66.01 Morbid (severe) obesity due to excess calories; I48.0 Paroxysmal atrial fibrillation; Z68.35 Body mass index [BMI] 35.0-35.9, adult; I10 Essential (primary) hypertension; J20.9 Acute bronchitis, unspecified; D50.0 Iron deficiency anemia secondary to blood loss (chronic); K21.9 Gastro-esophageal reflux disease without esophagitis; J30.1 Allergic rhinitis due to pollen; I71.21 Aneurysm of the ascending aorta, without rupture

== ENCOUNTER 2025-04-25 06:34 | Outpatient (REF) | payer BC, SELFPAY ==
[2025-04-25 11:31] LABS: MANUAL DIFF FLAG NO
[2025-04-25 11:34] LABS: Hematocrit 47.4 % (42.0-52.0); Hemoglobin 14.8 g/dl (14.0-18.0); Imm Gran Abs Auto 0.01 X10*3/uL (0.00-0.03); Imm Gran Pct Auto 0.2 % (0.0-0.4); Lymphocytes Absolute Auto 1.0 X10*3/uL (1.2-4.9); Mean Corpuscular HGB Conc 31.2 g/dl (31.0-36.0); Mean Corpuscular Hemoglobin 28.8 pg (27.0-33.0); Mean Corpuscular Volume 92.2 fL (80.0-98.0); NRBC Abs Auto 0.000 X10*3/uL (0.0-0.012); NRBC Pct Auto 0.0 /100WBC (0.0-0.2); Platelet Count 200 X10*3/uL (160-400); Red Blood Count 5.14 X10*6/uL (4.60-5.80); White Blood Count 6.4 X10*3/uL (4.8-10.8)
[2025-04-25 11:59] LABS: Alanine Aminotransferase 24 U/L (0-40); Albumin Level 4.2 g/dL (3.5-5.0); Alkaline Phosphatase 73 U/L (39-117); Anion Gap 10 (12-20); Aspartate Amino Transferase 34 U/L (5-37); Blood Urea Nitrogen 19 mg/dL (9-16); Calcium 8.7 mg/dL (8.4-10.2); Carbon Dioxide 28 mmol/L (22-29); Chloride 110 mmol/L (96-108); Cholesterol 132 mg/dL (<200); Estimated Glomerular Filt Rate > 60; HDL Cholesterol 42 mg/dL (>40); Potassium 4.5 mmol/L (3.3-5.1); Sodium 143 mmol/L (135-145); Total Protein 6.4 g/dL (6.5-8.0); Triglycerides 68 mg/dL (<150)
[2025-04-25 12:15] LABS: Vitamin B12 405 pg/mL (200-900)
[2025-04-25 12:16] LABS: Ferritin 27 ng/mL (20-250)
[2025-04-29 07:24] LABS: Vitamin D 25-OH, D2 <4 ng/mL; Vitamin D 25-OH, D3 30 ng/mL; Vitamin D 25-OH, Total 30 ng/mL (30-100)
== END 2025-04-25 06:35 | disposition home or self-care (01) ==
LOC: HO.HMGCLDS 06:34
PROVIDERS: PCP Internal Medicine; Visit Provider Internal Medicine
DX: Z00.01 Encounter for general adult medical examination with abnormal findings (principal); J44.0 Chronic obstructive pulmonary disease with (acute) lower respiratory infection; J20.9 Acute bronchitis, unspecified; D50.0 Iron deficiency anemia secondary to blood loss (chronic); K21.9 Gastro-esophageal reflux disease without esophagitis; J30.1 Allergic rhinitis due to pollen; I10 Essential (primary) hypertension; E66.01 Morbid (severe) obesity due to excess calories; Z68.35 Body mass index [BMI] 35.0-35.9, adult
CPT/HCPCS: 36415; 80053; 80061; 82306; 82607; 82728; 84443; 85025

== ENCOUNTER → 2025-05-20 14:22 | Outpatient (REF) | payer BC, SELFPAY ==
--- NOTE | 2025-05-20 14:24 | CA_ITS ---
Transthoracic Echocardiogram Patient (Last, First, Middle): Mitchel Reno, Gender: M Date of : 1960 Age: 64 Procedure Date: 05/20/2025 Procedure Type: Transthoracic Echocardiogram Location: OP Height: 180.34 cm Weight: 113.4 kg BSA: 2.32 m2 Heart Rate: bpm BP: 136 / 76 mmHg Computer Systems Engineer: SANDER Referring MD: Maxim Gutierrez MD Symptoms: I71.20 - Thoracic aortic aneurysm, without rupture, unspecified Study Quality: Fair Conclusions: - Normal left ventricular size and systolic function. There is mildly increased left ventricular wall thickness. The visually estimated ejection fraction is between 55-60%. - Normal right ventricular cavity size and systolic function. - There is mild dilatation of the sinuses of Valsalva measuring 4.22 cm and mild dilatation of the ascending aorta measuring 4.40 cm. Findings Left Ventricle Normal left ventricular size and systolic function. There is mildly increased left ventricular wall thickness. The visually estimated ejection fraction is between 55-60%. There is no evidence of regional wall motion abnormalities. Abnormal diastolic function is noted. Spectral Doppler is indicative of an impaired relaxation filling pattern. E/E prime ratio is <8, consistent with normal filling pressures. Right Ventricle Normal right ventricular cavity size and systolic function. Atria The left atrium is normal in size. The right atrium is normal in size. Aortic Valve There is a normal trileaflet aortic valve. There is mild calcification of the aortic valve. There is no aortic valve stenosis. There is trace (trivial) aortic valve regurgitation. Mitral Valve The mitral valve appears normal. There is no mitral valve regurgitation. There is no mitral valve stenosis. Pulmonic Valve The pulmonic valve is likely normal. Tricuspid Valve Normal tricuspid valve structure. There is no tricuspid valve regurgitation. Normal right atrial pressure. There is no evidence of pulmonary hypertension. Great Vessels There is mild dilatation of the sinuses of Valsalva measuring 4.22 cm and mild dilatation of the ascending aorta measuring 4.40 cm. The visualized portions of the pulmonary artery and branches are normal. Venous The inferior vena cava is normal in size and collapses greater than 50% with inspiration. Pericardium/Pleural There is no evidence of pericardial effusion. Prior Study Comparison No significant change compared to prior study dated: 05/02/2024. Measurements 2D Linear Measurements IVSd: 1.18 0.6-0.9/0.6-1.0 cm LVIDd: 5.62 3.9-5.3/4.2-5.9 cm LVIDd Index: 2.42 2.4-3.2/2.2-3.1 cm/m2 LVIDs: 3.51 2.0-3.6 cm LVPWd: 1.02 0.7-1.1 cm LA Diam: 4.30 2.7-3.8/3.0-4.0 cm LAIDs Index: 1.85 1.5-2.3 cm/m2 LV Mass: 312.74 67-162/88-224 g LV Mass Index: 134.80 43-95/49-115 g/m2 LVOT Diam: 2.50 3.0+(-)1.3 cm 2D Systolic Function EF 4C: 64.30 >55% EF 2C: 62.70 >55% EF BiP: 62.70 >55% Mitral Valve MV Pk E: 0.77 MV PK A: 0.68 MV Decel Time: 284.00 E/A: 1.10 E'Lateral: 12.70 E'Medial: 7.18 E/E' Med: 10.70 E/E' Lat: 6.00 PHT: 83.00 MVA PHT: 2.65 Decel [place]: 2.70 Aortic Valve AoV Pk Lito: 1.82 AoV Mn Lito: 1.26 AoV VTI: 0.40 AoV Pk Grad: 13.00 Aov Mn Grad: 7.00 HILARY Cont.VTI: 3.52 LVOT LVOT Pk Lito: 1.51 LVOT Mn Lito: 0.95 LVOT VTI: 0.29 LVOT Pk Grad: 9.00 LVOT Mn Grad: 4.00 LVOT Diam: 2.50 LVOT Area: 4.91 Diastolic Function MV Pk E: 0.77 MV Pk A: 0.68 E/A: 1.10 E'Medial: 7.18 E/E' Med: 10.70 E' Laterial: 12.70 E/E' Lat: 6.00 Right Ventricle TAPSE (mm): 29.80 TVS' Lito: 17.40 Tricuspid Valve TR Pk Lito: 2.73 TR Pk Grad: 30.00 RA Press: 3.00 RVSP: 33.00 Great Vessels Aorta Sinus of Valsalva: 4.22 2.0-3.[address] [place]: 3.86 1.7-3.4 cm Ao Asc: 4.40 2.1-3.4 cm Pulmonary Veins Pulm Vein S/D 1.20 Updated in Other Vendor System with Status of Final Amado Naidu MD electronically signed on 05/22/2025 5:18:35 PM with status of Final
== END ==
LOC: HO.CARD 14:22
PROVIDERS: PCP Internal Medicine; Visit Provider Internal Medicine Cardiovascular Disease
DX: I71.20 Thoracic aortic aneurysm, without rupture, unspecified (principal)
CPT/HCPCS: 93306

== ENCOUNTER → 2025-05-20 14:24 | Outpatient (BNV) | payer BC, SELFPAY | PROVIDERS: PCP Internal Medicine; Visit Provider Internal Medicine Cardiovascular Disease | DX: I77.810 Thoracic aortic ectasia (principal); R93.1 Abnormal findings on diagnostic imaging of heart and coronary circulation | CPT/HCPCS: 93306 ==

== ENCOUNTER 2025-06-22 14:05 | Outpatient (AMB) | payer BC, SELFPAY ==
[2025-06-22 14:09] VITALS: BP 140/82; PULSE 77; BMI 33.5
--- NOTE | 2025-06-22 14:09 | MHC.OFFVIS ---
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: No Allergies adhesive tape Allergy (Unknown, Verified 10/28/24 15:11) RASH Medication List - Last Reconciled 06/22/25 by Maxim Gutierrez MD albuterol sulfate 90 mcg/actuation 1 inh inhalation QID PRN 30 days ascorbic acid (vitamin C) (Vitamin C) 500 mg PO DAILY cetirizine (Zyrtec) 10 mg PO DAILY 90 days ferrous sulfate (Iron (ferrous sulfate)) 325 mg PO BID 9 days fluticasone propion-salmeterol 250-50 mcg/dose (Advair Diskus) 1 ea inhalation BID losartan 25 mg PO DAILY magnesium glycinate 100 mg PO .QHS 90 days metoprolol succinate ER 50 mg PO DAILY omeprazole 20 mg PO BID@0630,1630 90 days tiotropium bromide 2.5 mcg/actuation (Spiriva Respimat) 2 puffs PO DAILY HPI Comments Details: Mitchel comes for follow-up. He has had no new cardiac symptoms. Denies any prolonged palpitation irregular heartbeat. No exertional chest pain or shortness of breath. He remains very active and denies any exertional symptoms. No shortness of breath, orthopnea, PND, leg edema. Recent echocardiogram showed stable ascending aortic size with normal biatrial chamber size with normal LV ejection fraction. Takes all his medications. [facility] Medical History (Updated 06/22/25 @ 14:30 by Maxim Gutierrez MD) Paroxysmal atrial fibrillation Atrial fibrillation with rapid ventricular response COPD (chronic obstructive pulmonary disease) with acute bronchitis GERD (gastroesophageal reflux disease) HTN (hypertension) Iron deficiency anemia Surgical History H/O umbilical hernia repair Family History Father Liver cancer Diabetes mellitus Mother Emphysema, unspecified CVD (cardiovascular disease) Maternal Grandmother No problems noted. Maternal Grandfather No problems noted. Paternal Grandfather No problems noted. Paternal Grandmother No problems noted. Sister No problems noted. 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 Cognitive needs: No Hearing needs: No Vision needs: Yes Review of Systems Const Denies chills, Denies fatigue, Denies fever(s), Denies frequent falls, Denies weakness, Denies weight gain and Denies weight loss ENT Denies dizziness Card Denies chest pain, Denies leg edema, Denies lightheadedness, Denies palpitations, Denies dyspnea, Denies dyspnea on exertion, Denies orthopnea and Denies other (loss of consciousness) Resp Denies cough, Denies dyspnea and Denies dyspnea on exertion GI Denies hematochezia and Denies change in stool character Musc Denies abnormal gait, Denies muscle weakness, Denies numbness, Denies radiating pain into limb and Denies tingling Neuro Denies abnormal gait, Denies dizziness, Denies frequent falls, Denies numbness, Denies tingling and Denies weakness Endo Denies fatigue and Denies palpitations Physical Exam Vital Signs: Last Vital Signs Pulse 77 06/22/25 14:09 BP 140/82 H 06/22/25 14:09 BMI result Body Mass Index 33.5 Const General: cooperative, comfortable and no acute distress Orientation/consciousness: patient oriented x3 Neck Neck: Yes normal visual inspection and Yes no JVD Resp Effort & Inspection: normal respiratory effort Auscultation: clear to auscultation bilaterally, no crackles, no rales, no rhonchi, no wheezes and diminished lung sounds Cardio Jugular venous distension: no JVD Rate: regular rate Rhythm: regular rhythm Heart sounds: S1 normal heart sound present, S2 normal heart sound present, no gallops, no murmurs and no rubs Peripheral pulses: Peripheral pulses 2+ throughout GI Inspection: Yes normal to inspection Skin General skin exam: no rashes or lesions noted Neuro General: patient oriented x3 Extrem General: Yes normal to inspection, No no pedal edema and No calf tenderness Office Procedures EKG Details: EKGs shows normal sinus rhythm with PACs with right bundle-branch block, no significant change [id number], Complete Assessment & Plan Assessment & Plan (1) Paroxysmal atrial fibrillation: Comment: Due to acute medical illness with pneumonia. Converted to sinus rhythm on amiodarone and metoprolol. Subsequently amiodarone was discontinued. Code(s): I48.0 - Paroxysmal atrial fibrillation Category: Medical Plan: Paroxysmal atrial fibrillation without any obvious clinical recurrence. He has biatrial chamber size appear to be within normal limits. Blood pressure is well controlled. At this point time continue metoprolol therapy. Avoidance of stimulants was discussed. Advised to call me with any significant symptoms. (2) Hypertension, essential: Code(s): I10 - Essential (primary) hypertension Category: Medical Plan: Hypertension which is currently optimized on current metoprolol and losartan therapy. Importance of good blood pressure control was discussed. He says at home his blood pressure is generally well optimized. Advised to continue current therapy. Low-salt diet was discussed. Advised to participate in regular physical activity and weight loss program. Advised to call if blood pressure remains significantly elevated at home that may require further titration of his therapy. (3) Thoracic aortic aneurysm: Code(s): I71.20 - Thoracic aortic aneurysm, without rupture, unspecified Category: Medical Qualifiers: Thoracic aorta location: ascending aorta Presence of rupture: without rupture Qualified Code(s): I71.21 - Aneurysm of the ascending aorta, without rupture Plan: Mildly enlarged thoracic aorta which has not changed significantly. Continue current aggressive medical therapy with the aggressive blood pressure control. Lipid modification goal LDL less than 100 mg/dL. No surgical interventions required. Follow-up echocardiogram in 1 year's time. (4) Right bundle branch block (RBBB) determined by electrocardiography: Code(s): I45.10 - Unspecified right bundle-branch block Plan: Right bundle-branch block by EKGs which has remained stable. No interventions required. Annual EKGs should be considered. Will follow up in the clinic in 1 year's time, sooner PRN. Thank you for allowing me to partake in his care Coding Level of Care Code Est Pt Level 4 (76565) Diagnoses Paroxysmal atrial fibrillation I48.0 Hypertension, essential I10 Aneurysm of ascending aorta without rupture I71.21 Thoracic aorta location: ascending aorta Presence of rupture: without rupture Right bundle branch block (RBBB) determined by electrocardiography I45.10 CPT Codes EKG - CPT: 83857-[id number], Complete ([id number])
== END 2025-06-22 14:29 | disposition home or self-care (01) ==
LOC: HO.HCS 14:06
PROVIDERS: PCP Internal Medicine; Visit Provider Internal Medicine Cardiovascular Disease
DX: I48.0 Paroxysmal atrial fibrillation (principal); I10 Essential (primary) hypertension; I71.21 Aneurysm of the ascending aorta, without rupture; I45.10 Unspecified right bundle-branch block
CPT/HCPCS: 93010; 99214

== ENCOUNTER → 2025-06-22 14:05 | Outpatient (BNVA) | payer BC, SELFPAY | PROVIDERS: PCP Internal Medicine; Visit Provider Internal Medicine Cardiovascular Disease | DX: I48.0 Paroxysmal atrial fibrillation (principal); I10 Essential (primary) hypertension; I49.1 Atrial premature depolarization; I45.10 Unspecified right bundle-branch block; I71.21 Aneurysm of the ascending aorta, without rupture | CPT/HCPCS: 93005; 99212 ==